=== PATIENT | male | born 1960 | race Caucasian/White ===

== ENCOUNTER → 2023-03-20 11:15 | Outpatient (CLI) | payer OTHER, SELFPAY ==
--- NOTE | ~2023-03-20 | XR_ITS ---
AP and lateral views of the right hip Clinical history: Pain Findings: No acute fracture or dislocation is seen. Osseous alignment is anatomic. The right hip join t and right SI joint are preserved. Soft tissues are unremarkable. Impression: No significant abnormality is seen. Reviewed, dictated and finalized at location . Impression: No significant abnormality is seen.
== END ==
PROVIDERS: PCP Family Medicine Adolescent Medicine; Visit Provider Family Medicine Adolescent Medicine
DX: M25.551 Pain in right hip (principal)
CPT/HCPCS: 73502

== ENCOUNTER 2023-04-20 03:29 | Emergency (ER) | payer OTHER, SELFPAY ==
[2023-04-20 03:49] VITALS: BP 131/84; PULSE 92; RESP 16; TEMP 36.7; O2SAT 95
--- NOTE | 2023-04-20 05:45 | ED.GENADULT ---
HPI - General Adult General Chief complaint: Skin/Abscess/Foreign Body Stated complaint: rash Time Seen by Provider: 04/20/23 05:04 History of Present Illness HPI narrative: This is a 62-year-old male with history of brain cancer on chemo presenting with an itchy rash. At 10:00 p.m. he also had the onset of an urticarial rash on his arms torso and legs. No other symptoms of allergy like wheezing, dizziness/ lightheadedness, throat swelling or GI symptoms. Patient has had reactions like this in the past when on chemotherapy. Related Data Home Medications Medication Instructions Recorded Confirmed lamotrigine 150 mg tablet 300 mg PO BID 06/02/22 03/04/23 brivaracetam 25 mg tablet 25 mg PO BID 06/05/22 03/04/23 (Briviact) ondansetron HCl 8 mg tablet 8 mg PO Q8H PRN nausea and vomiting 02/19/23 03/04/23 prochlorperazine maleate 10 mg 10 mg PO Q6H PRN nausea and 02/19/23 03/04/23 tablet vomiting temozolomide 100 mg capsule 300 mg PO DAILY 02/24/23 03/04/23 Allergies Allergy/AdvReac Type Severity Reaction Status Date / Time sulfamethoxazole Allergy Unknown Unknown Verified 03/04/23 09:38 trimethoprim Allergy Unknown Unknown Verified 03/04/23 09:38 amlodipine AdvReac Intermediate Other Verified 03/04/23 09:38 [facility] Past Medical History Medical History Malignant neoplasm of brain, unspecified (2001) Astrocytoma Surgical History Surgical History H/O left inguinal hernia repair (2013) History of craniotomy (2001) Excision of astrocytoma History of craniotomy (2018) Removal of glioma Family History Family History Father Hypertension Malignant neoplasm of prostate Diabetes mellitus Other Cerebrovascular accident Family history of cardiovascular disease Social History Social History Smoking status: Never smoker Second hand tobacco smoke exposure: No Alcohol intake: never Substance use: never Substance use type: does not use Living arrangements: with family Occupation/Education: other Additional occupation/education comments: Disability Gender identity (if verbalized by the patient): Male Spiritual care concerns: No Agree to blood products: Yes Exam Narrative: APPEARANCE: No apparent distress. Head: atraumatic. EYES: EOMI, NOSE: Atraumatic NECK: Trachea midline RESPIRATORY: No increased rate of breathing, clear to auscultation CARDIOVASCULAR: RRR, peripheral edema ABDOMINAL: Non-distended MUSCULOSKELETAl: No obvious deformities NEURO: Alert. Moving 4/4 extremities SKIN:: patient has a patchy urticarial rash over his right leg abdomen and right arm PSYCHIATRIC: Normal affect Course Vital Signs Vital signs: Vital Signs Temperature 98.1 F 04/20/23 03:49 Pulse Rate 92 04/20/23 03:49 Respiratory Rate 16 04/20/23 03:49 Blood Pressure 131/84 04/20/23 03:49 Pulse Oximetry 95 04/20/23 03:49 Oxygen Delivery Room Air 04/20/23 03:49 Temperature 98.1 F 04/20/23 03:49 Pulse Rate 92 04/20/23 03:49 Respiratory Rate 16 04/20/23 03:49 Blood Pressure 131/84 04/20/23 03:49 Pulse Oximetry 95 04/20/23 03:49 Oxygen Delivery Room Air 04/20/23 03:49 Medical Decision Making MDM Narrative Medical decision making narrative: -Presentation: 62-year-old male with brain tumor on chemo presenting with an urticarial rash. No other signs of anaphylaxis. He has had reactions like this before to his chemotherapy. -DDX includes but is not limited to: Idiopathic urticaria, allergic reaction, medication side effect -Co-morbidities complicating care: medication side effect -Social determinants of health: patient is stable to the brain cancer -External Chart Review: review of oncology office visit from April 08, 2023 -H
[2023-04-20] MEDS: diphenhydrAMINE HCl CAP 25 MG CAPSULE 50 MG PO (05:50)
== END 2023-04-20 06:01 | disposition home or self-care (01) ==
PROVIDERS: Emergency Provider Emergency Medicine; PCP Family Medicine Adolescent Medicine
DX: L50.9 Urticaria, unspecified (principal); C71.9 Malignant neoplasm of brain, unspecified
CPT/HCPCS: 96372; 99283; A9270; J1100

== ENCOUNTER 2023-06-22 17:31 | Emergency (ER) | payer OTHER, SELFPAY ==
--- NOTE | ~2023-06-22 | CT_ITS ---
CT of the Abdomen and Pelvis: Indication: Abdominal pain, status post fall Technique: 2.5 mm axial scans were obtained through the abdomen and pelvis following intravenous adm inistration of 100 cc of Omnipaque 350. Dose reduction technique was used on this scan by utilizing a utomated exposure control and iterative reconstruction technique. The dose-length product (DLP) was 9 80.18 mGy-cm. Findings: Scans through the lung bases are unremarkable. Fractures of the right fourth and fifth rib s noted. Hepatic cyst present. The spleen, pancreas, gallbladder, and adrenal glands are within normal limits. Probable left renal cysts noted, largest at the lower pole measuring 1.9 cm. Small bilateral nonobst ructing renal stones are noted. No evidence of aortic aneurysm. No lymphadenopathy. No bowel obstruction or bowel wall thickening. There is no evidence to suggest acute appendicitis. Images through the pelvis were performed. Urinary bladder unremarkable. Prostate gland and seminal ve sicles are unremarkable. No ascites. Impression: Fractures of right fourth and fifth ribs. No other acute abnormality seen. Bilateral nephrolithiasis. Reviewed, dictated and finalized at [facility]. Impression: Fractures of right fourth and fifth ribs. No other acute abnormality seen. Bilateral nephrolithiasis.
--- NOTE | ~2023-06-22 | XR_ITS ---
AP and oblique views of the bilateral ribs, and PA and lateral chest radiograph Clinical History: Pain Findings: There is a minimally displaced fracture at the posterior right fifth rib. Lungs are clear, without focal consolidation or pleural effusion. Cardiomediastinal contour is within normal limits. S oft tissues are unremarkable. Impression: Minimally displaced fracture at the posterior right fifth rib. Clear lungs. Reviewed, dictated and finalized at location . Impression: Minimally displaced fracture at the posterior right fifth rib. Clear lungs.
--- NOTE | ~2023-06-22 | CT_ITS ---
Noncontrast CT scan of the thoracic spine Technique: Multiple contiguous axial 2.[address] images of the thoracic spine were obtained and r econstructed in 2D sagittal and coronal planes on the acquisition scanner. Dose reduction technique w as used on this scan by utilizing automated exposure control, adjustment of the mA and/or kV accordin g to patient size. The dose-length product (DLP) was 1454.83 mGy-cm. Clinical History: Pain Findings: No fractures or dislocations. Unremarkable visualized bony structures. The intervertebral disc spaces are preserved. Paravertebral soft tissues are unremarkable. Small bilateral nonobstructing renal stones are present. There is a 1.9 cm left lower pole renal mass versus hyperdense cyst. Impression: No fracture or subluxation of the thoracic spine. 1.9 cm left lower pole renal mass versus hyperdense cyst. Bilateral nephrolithiasis. Reviewed, dictated and finalized at [facility]. Impression: No fracture or subluxation of the thoracic spine. 1.9 cm left lower pole renal mass versus hyperdense cyst. Bilateral nephrolithiasis.
--- NOTE | ~2023-06-22 | CT_ITS ---
CT Scan of the Chest without Contrast: Clinical Indication: Rib fracture, pneumothorax Technique: Contiguous sections were acquired throughout the chest without intravenous contrast. Dose reduction technique was used on this scan by utilizing automated exposure control and iterative recon struction technique. The dose-length product (DLP) was 281.45 mGy-cm. Findings: There is no evidence of any significant mediastinal, hilar or axillary lymphadenopathy. The mediastin al soft tissues appear normal. There is a minimally displaced fracture at the anterolateral right fourth rib. There are segmental fr actures of the right fifth rib, fractures posteriorly and laterally.. There is no evidence of pleural or pericardial effusion. The lungs are clear. No pulmonary nodules or infiltrates are noted. Images through the upper abdomen reveal hepatic cyst. Impression: Fractures of the right fourth and fifth ribs, as detailed above. No pneumothorax. Clear lungs. Reviewed, dictated and finalized at [facility]. Impression: Fractures of the right fourth and fifth ribs, as detailed above. No pneumothorax. Clear lungs.
--- NOTE | ~2023-06-22 | CT_ITS ---
Non-contrast Head CT History: Head injury, brain tumor Technique: Axial non-contrast imaging of the brain was performed. Dose reduction technique was used on this scan by utilizing automated exposure control and iterative reconstruction technique. The dose -length product (DLP) was 756.67 mGy-cm. Findings: There is left frontal craniotomy with areas of probable postsurgical insufflation the left frontal lobe, as well as possible irregular partially cystic or necrotic mass, which could measure up to approximately 4.2 cm in diameter. There is ex vacuo dilatation of the left lateral ventricle. The re is minimal hyperdensity in the operative region, which could reflect minimal hemorrhage or postope rative change. No midline shift. Right cerebral hemisphere and cerebellum are unremarkable. The visua lized paranasal sinuses and mastoid air cells are clear. Impression: Postoperative encephalomalacia and possible underlying partially cystic or necrotic mass involving th e left frontal lobe. Correlate with history. Comparison with prior exams would be useful to assess fo r any interval change. Pre and postcontrast MR could be considered to better distinguish between post operative change and residual/recurrent mass. Minimal areas of hyperdensity in the operative region could reflect minimal hemorrhage versus other p ostoperative change or mass. No midline shift. Reviewed, dictated and finalized at location [facility]. Impression: Postoperative encephalomalacia and possible underlying partially cystic or necr otic mass involving the left frontal lobe. Correlate with history. Comparison w ith prior exams would be useful to assess for any interval change. Pre and post contrast MR could be considered to better distinguish between postoperative taz nge and residual/recurrent mass. Minimal areas of hyperdensity in the operative region could reflect minimal hem orrhage versus other postoperative change or mass. No midline shift.
--- NOTE | ~2023-06-22 | CT_ITS ---
Noncontrast CT scan of the cervical spine Technique: Multiple contiguous axial [address] images of the cervical spine were obtained and rec onstructed in 2D sagittal and coronal planes on the acquisition scanner. Dose reduction technique was used on this scan by utilizing automated exposure control, adjustment of the mA and/or kV according to patient size. The dose-length product (DLP) was 470.59 mGy-cm. Clinical History: Pain Findings: No fractures or dislocations. Unremarkable visualized bony structures. The intervertebral disc spaces are preserved. No prevertebral soft tissue swelling. Impression: No fracture or subluxation of the cervical spine. Reviewed, dictated and finalized at location . Impression: No fracture or subluxation of the cervical spine.
[2023-06-22 18:02] VITALS: BP 136/91; PULSE 69; RESP 16; TEMP 36.6; O2SAT 97
[2023-06-22 22:06] VITALS: BP 162/106; PULSE 64; RESP 14; O2SAT 98
--- NOTE | 2023-06-22 22:54 | ECG_ITS ---
Measurements Intervals [place] Rate: 66 P: 66 VA: 174 QRS: 13 QRSD: 93 T: 38 QT: 358 QTc: 377 Interpretive Statements SINUS RHYTHM NONSPECIFIC T-WAVE ABNORMALITY ABNORMAL ECG NO PREVIOUS ECG AVAILABLE FOR COMPARISON Electronically Signed On 06-23-2023 12:02:50 CDT by Robbie Parra M.D.
[2023-06-22 23:03] VITALS: PULSE 73; RESP 17; O2SAT 98
[2023-06-22 23:09] LABS: Basophils Absolute Auto 0.1 K/mm3 (0.0-0.1); Basophils Percent Auto 0.7 % (0.2-1.2); Eosinophils Percent Auto 0.2 % (0-4.4); Hematocrit 47.4 % (42.0-52.0); Hemoglobin 16.1 g/dL (14.0-18.0); Immature Granulocyte Absolute 0.07 K/mm3 (0.00-0.031); Immature Granulocyte Percent A 0.7 % (0-0.5); Lymphocytes Absolute Auto 1.13 K/mm3 (0.9-3.2); Lymphocytes Percent Auto 11.1 % (18.3-44.2); Mean Corpuscular Hemoglobin 31.4 pg (26-34); Mean Corpuscular Volume 92.4 fl (80-100); Mean Platelet Volume 10.4 fl (7.4-10.4); Monocytes Absolute Auto 0.8 K/mm3 (0.1-0.6); Monocytes Percent Auto 7.5 % (2.6-8.5); Neutrophils Absolute Auto 8.1 K/mm3 (1.3-6.7); Neutrophils Percent Auto 79.8 % (45.5-73.1); Platelet Count Result 159 k/mm3 (150-375); Red Blood Count 5.13 M/mm3 (4.6-6.20); Red Cell Distribution Width 13.2 % (11.5-14.5); White Blood Count 10.2 K/mm3 (4.5-10.0)
[2023-06-22 23:15] VITALS: PULSE 68; RESP 16; O2SAT 98
--- NOTE | 2023-06-22 23:17 | ED.FALL ---
HPI - Fall General Chief Complaint: Fall Stated Complaint: fall, back pain Time Seen by Provider: 06/22/23 22:29 Source: patient, family and old records reviewed Mode of arrival: ambulatory Limitations: no limitations History of Present Illness HPI Narrative: Patient is a 62-year-old male who presents to ED with report of a fall and back pain. Patient is currently undergoing chemotherapy for a brain tumor. He has chronic aphasia r/t this. His oncologist is Dr. Ayden Martinez with [facility]. Per family member at bedside, patient was found on the ground by another family member that was attempting to pick him up for dinner tonight. He had fallen in his living room and was unable to get up off the ground. He thinks he was on the ground for around 1 hour. Patient is unable to tell me how the fall occurred. He denied feeling dizzy or lightheaded prior to the fall. He complains of upper back pain and right side/abdomen pain currently. He stated the pain may have been present before the fall. He does not think he hit his head. Denies LOC. Denies nausea or vomiting. Denies chest pain or difficulty breathing. Related Data Home Medications Medication Instructions Recorded Confirmed lamotrigine 150 mg tablet 300 mg PO BID 06/02/22 04/23/23 brivaracetam 25 mg tablet 25 mg PO BID 06/05/22 04/23/23 (Briviact) ondansetron HCl 8 mg tablet 8 mg PO Q8H PRN nausea and vomiting 02/19/23 04/23/23 prochlorperazine maleate 10 mg 10 mg PO Q6H PRN nausea and 02/19/23 04/23/23 tablet vomiting temozolomide 100 mg capsule 300 mg PO DAILY 02/24/23 04/23/23 Allergies Allergy/AdvReac Type Severity Reaction Status Date / Time sulfamethoxazole Allergy Unknown Unknown Verified 06/22/23 22:08 trimethoprim Allergy Unknown Unknown Verified 06/22/23 22:08 amlodipine AdvReac Intermediate Other Verified 06/22/23 22:08 Review of Systems Review of Systems: CONSTITUTIONAL: Denies fever, chills, or sweats. EYES: Denies visual changes. CARDIOVASCULAR: Denies chest pain. RESPIRATORY: Denies dyspnea. GASTROINTESTINAL: Denies abdominal pain, nausea, vomiting. MUSCULOSKELETAL: See HPI. NEUROLOGIC: See HPI. All systems reviewed & are unremarkable except as noted in HPI and below PMFSH Past Medical History Medical History Malignant neoplasm of brain, unspecified (2001) Astrocytoma Surgical History Surgical History H/O left inguinal hernia repair (2013) History of craniotomy (2001) Excision of astrocytoma History of craniotomy (2017) Removal of glioma Family History Family History Father Hypertension Malignant neoplasm of prostate Diabetes mellitus Other Cerebrovascular accident Family history of cardiovascular disease Social History Social History Smoking status: Never smoker Second hand tobacco smoke exposure: No Alcohol intake: never Substance use: never Substance use type: does not use Lack of Transportation: No Lack of Food: Never True Current Housing: I Have Housing Concerned About Future Housing: No Difficulty Paying Gas/Electric Bills: No Difficulty Paying for Meds: No Currently Unemployed: No Education: Trade/Vocational Certificate Difficulty w/ Childcare or Family Care: No Living arrangements: with family Occupation/Education: other Additional occupation/education comments: Disability Gender identity (if verbalized by the patient): Male Spiritual care concerns: No Agree to blood products: Yes Exam Narrative: GENERAL: Well appearing, well-nourished, non-toxic, in mild acute distress due to pain. HEAD: Normocephalic, atraumatic. EYES: PERRLA/EOMI, conjunctiva clear. NECK: Supple. No adenopathy, no masses. RESPIRATORY: Airway patent,
[2023-06-22 23:18] LABS: Alanine Aminotransferase 50 U/L (6-50); Albumin Level 4.5 g/dL (3.5-5.1); Alkaline Phosphatase 79 U/L (38-126); Anion Gap 6 mmol/L (8-16); Aspartate Amino Transferase 33 U/L (17-59); Bilirubin,Total 0.6 mg/dL (0.2-1.3); Blood Urea Nitrogen 18 mg/dL (9-20); Calcium 10.2 mg/dL (8.4-10.2); Carbon Dioxide 32 mmol/L (22-30); Chloride 102 mmol/L (98-107); Creatine Kinase 88 U/L (55-170); Estimated CRCL calculation 38 ml/min; Estimated Glomerular Filt Rate 41; Glucose 112 mg/dL (65-110); Magnesium 2.1 mg/dL (1.6-2.3); Potassium 4.5 mmol/L (3.4-5.0); Sodium 140 mmol/L (137-145)
[2023-06-22 23:29] LABS: Troponin I < 0.012 ng/mL (0.000-0.034)
[2023-06-22 23:38] VITALS: PULSE 72; RESP 20; O2SAT 98
[2023-06-22] MEDS: SODIUM CHLORIDE 0.9% IV 1,000 ML 999 ML IV CONT (23:42)
[2023-06-22] MEDS: ONDANSETRON INJ 4 MG/2 ML VIAL IV PUSH (23:42)
[2023-06-22] MEDS: MORPHINE SULFATE (*CRX) 4 MG/ML INJ IV PUSH (23:42)
[2023-06-22 23:46] VITALS: PULSE 71; RESP 13; O2SAT 98
[2023-06-23] VITALS (33 sets, daily range): BP systolic 128–149; BP diastolic 90–99; PULSE 55–83; RESP 10–19; O2SAT 95–99
[2023-06-23 02:11] LABS: Appearance Urine Clear (Clear); Bilirubin Urine Negative (Negative); Blood Urine Negative (Negative); Color Urine Yellow (Yellow); Glucose Urine UA Negative (Negative); Ketones Urine Negative (Negative); Leukocyte Esterase Ur Negative LEU/UL (Negative); Nitrate Urine Negative (Negative); Protein Urine Negative (Negative); pH Urine 5.5 (5.0-9.0)
[2023-06-23 02:20] LABS: Add Urine Microscopic? NO; Specific Grav Ur 1.039 (1.001-1.035)
--- NOTE | 2023-06-23 07:30 | PC.NURSE ---
New ETA for [facility] is 0830 or sooner.
[2023-06-23] MEDS: MORPHINE SULFATE (*CRX) 4 MG/ML INJ IV PUSH (07:52)
--- NOTE | 2023-06-23 08:25 | PC.NURSE ---
ETA from [facility] is 0900
== END 2023-06-23 09:10 | disposition short-term general hospital (02) ==
PROVIDERS: Emergency Provider Physician Assistant; PCP Family Medicine Adolescent Medicine
DX: S22.5XXA Flail chest, initial encounter for closed fracture (principal); C71.9 Malignant neoplasm of brain, unspecified; N17.9 Acute kidney failure, unspecified; N28.9 Disorder of kidney and ureter, unspecified; R94.31 Abnormal electrocardiogram [ECG] [EKG]; W19.XXXA Unspecified fall, initial encounter
CPT/HCPCS: 36415; 70450; 71046; 71110; 71250; 72125; 72128; 74177; 80053; 81003; 82550; 83735; 84484; 85025; 93005; 96361; 96374; 96375; 96376; 99285; J2270; J2405; J7030; Q9967

== ENCOUNTER 2024-10-10 09:27 | Outpatient (CLI) | payer OTHER, SELFPAY ==
--- NOTE | ~2024-10-10 | US_ITS ---
Abdominal Sonogram: Real-time sonographic imaging of the abdomen was performed. Clinical History: Other specified disorders kidneys and ureter Findings: The liver appears normal with no evidence of mass lesion or bile duct dilatation. Main por rhys vein demonstrates normal direction of flow. The spleen is normal in size without evidence of foca l lesion. The gallbladder is well distended, and appears normal with no evidence of gallstone or wal l thickening. The common bile duct measures 4 mm. The visualized pancreas, aorta, and IVC are unrema rkable. The right kidney measures 9.7 cm in length and the left kidney measures 10.5 cm. There is n o hydronephrosis or renal calculus. Small bilateral renal cysts present. Impression: Small bilateral renal cysts, otherwise unremarkable exam. Reviewed, dictated and finalized at location . [facility] SPECIAL[facility] Impression: Small bilateral renal cysts, otherwise unremarkable exam.
== END 2024-10-10 09:28 | disposition home or self-care (01) ==
PROVIDERS: PCP Family Medicine Adolescent Medicine; Visit Provider Family Medicine Adolescent Medicine
DX: N28.1 Cyst of kidney, acquired (principal)
CPT/HCPCS: 76700

== ENCOUNTER 2024-12-05 12:20 | Emergency (ER) | payer OTHER, SELFPAY ==
[2024-12-05] VITALS (32 sets, daily range): BP systolic 123–156; BP diastolic 78–97; PULSE 64–88; RESP 13–20; TEMP 37.5–37.7; O2SAT 90–95
--- NOTE | ~2024-12-05 | CT_ITS ---
Clinical indication:Clinically concerned for pneumonia. COMPARISON:Chest radiograph, performed 4 hours earlier (with benign results). Reference is also made to a CT examination of the abdomen and pelvis dated 06/23/2023. TECHNIQUE: Multiple contiguous axial images of the chest were performed following the administration of intravenous contrast. DLP: 265 mGy-cm FINDINGS: LUNG:The lungs are clear. MEDIASTINUM:No morphologically suspicious or pathologically enlarged lymph nodes identified within th e mediastinum, hilum or bilateral axilla. HEART:The heart is of normal size, without pericardial effusion. SOFT TISSUES OF THE CHEST: Unremarkable BONES OF THE CHEST: No acute compression fracture. No lytic or blastic lesions are identified. VISUALIZED PORTION OF THE UPPER ABDOMEN: A well-circumscribed focus of decreased attenuation is ident ified within segment 8 of the liver measuring 4 cm in greatest dimension, unchanged from 2022 examina tion, representing a cyst. Small hiatal hernia is noted. IMPRESSION: No cross-sectional imaging evidence to suggest the presence of pneumonia. The lungs are clear. Reviewed, dictated and finalized at location A. SETTING SUPERVISOR
--- NOTE | ~2024-12-05 | XR_ITS ---
EXAMINATION: XR chest 2V DATE: 12/05/2024 15:19 INDICATION: Altered mental status. Fall. TECHNIQUE: Frontal and lateral views of the chest were obtained. COMPARISON: Chest 2 views 06/22/2023 FINDINGS: There is no pneumonia, pleural effusion, or pneumothorax. The heart size is normal. There a re old healed right rib fractures. IMPRESSION: 1. No acute cardiopulmonary disease. Reviewed, dictated and finalized at location A. EATION SPECIALIST
--- NOTE | ~2024-12-05 | CT_ITS ---
Clinical Indication: Elevated d-dimer CT Scan of the Chest with Contrast: Technique: Contiguous sections were acquired throughout the chest after intravenous administration of 100 cc of Omnipaque 350. Dose reduction technique was used on this scan by utilizing automated expos ure control and iterative reconstruction technique. The dose-length product (DLP) was 388.73 mGy-cm. COMPARISON: 12/05/2024 Findings: There is no evidence of any significant mediastinal, hilar or axillary lymphadenopathy. There is no f illing defect in the pulmonary arterial tree to suggest pulmonary embolus. There is no evidence of ao rtic dissection or aneurysm. There is no no pleural effusion. Minimal pericardial fluid present effusion. The lungs are clear. No pulmonary nodules or infiltrates are noted. Images through the upper abdomen demonstrates stable 2 cm solid-appearing mass at the upper pole the left kidney. Impression: 2 cm solid-appearing left upper pole renal mass, stable from most recent prior exam, but increased in size from prior exam dated 06/23/2023. Renal cell carcinoma is suspected. Additional appropriate work up and surgical consultation is advised. No evidence of pulmonary embolus, aortic dissection, or aortic aneurysm. Clear lungs. Minimal pericardial fluid. Reviewed, dictated and finalized at location . OPERATOR Impression: 2 cm solid-appearing left upper pole renal mass, stable from most recent prior exam, but increased in size from prior exam dated 06/23/2023. Renal cell carcino ma is suspected. Additional appropriate workup and surgical consultation is advised. No evidence of pulmonary embolus, aortic dissection, or aortic aneurysm. Clear lungs. Minimal pericardial fluid.
--- NOTE | ~2024-12-05 | CT_ITS ---
EXAMINATION: CT brain wo con DATE: 12/05/2024 15:10 INDICATION: Weakness post fall TECHNIQUE: Computed tomography (CT) of the head was performed without intravenous contrast. Sagittal and coronal reconstructions were performed. The mA was adjusted according to patient size. Iterative reconstruction technique was employed. The dose-length product was 605.33 mGy-cm. COMPARISON: head CT dated 06/23/2023 FINDINGS: No acute fracture. There is encephalomalacia in the left frontal lobe and anterior left temporal lobe underlying a chronic left frontal craniotomy. No acute intracranial hemorrhage, acute infarction or abnormal extra axial fluid collection. There is ex vacuo dilation of the anterior and temporal horns of the left lateral ventricle. Symmetric prominence of the sulci consistent with mild age-appropriate diffuse cerebral volume loss. No solid masses or mass effect. There is mucosal thickening the bilate ral ethmoid sinuses. The orbits and mastoid air cells are normal. IMPRESSION: 1. No fracture or acute intracranial process. 2. Encephalomalacia in the left frontal lobe and anterior left temporal lobe which could represent se quela prior infarct, trauma or surgery and which underlies a left frontal craniotomy defect. Correlat e with clinical/surgical history. Reviewed, dictated and finalized at location A. L INSPECTOR IMPRESSION: 1. No fracture or acute intracranial process. 2. Encephalomalacia in the left frontal lobe and anterior left temporal lobe wh ich could represent sequela prior infarct, trauma or surgery and which underlie s a left frontal craniotomy defect. Correlate with clinical/surgical history.
--- NOTE | ~2024-12-05 | CT_ITS ---
EXAMINATION: CT cervical spine wo con DATE: 12/05/2024 15:10 INDICATION: Neck injury. Fall. TECHNIQUE: Computed tomography (CT) of the cervical spine was performed without intravenous contrast. Automated exposure control and iterative reconstruction technique were employed. The dose-length pro duct was 329.58 mGy-cm. COMPARISON: CT cervical spine 06/23/2023 FINDINGS: There is a 4 mm nodule in left thyroid lobe, likely not clinically significant. Alignment i s normal. Vertebral body heights are normal. There is mildly decreased disc height at C4-C5. The foll owing disc levels are specifically discussed: C2-C3: There is mild bilateral uncovertebral joint osteoarthritis. There is mild bilateral facet join t osteoarthritis. There is no neural foraminal stenosis. There is no central canal stenosis. C3-C4: There is severe right and moderate left uncovertebral joint osteoarthritis. There is mild bila teral facet joint osteoarthritis. There is moderate bilateral neural foraminal stenosis. There is mil d central canal stenosis. C4-C5: There is mild bilateral uncovertebral joint osteoarthritis. There is mild bilateral facet join t osteoarthritis. There is mild left neural foraminal stenosis. There is mild central canal stenosis. C5-C6: There is mild bilateral uncovertebral joint osteoarthritis. There is mild right facet joint os teoarthritis. There is mild bilateral neural foraminal stenosis. There is mild central canal stenosis . C6-C7: There is moderate left uncovertebral joint osteoarthritis. There is mild bilateral facet joint osteoarthritis. There is mild left neural foraminal stenosis. There is mild central canal stenosis. C7-T1: There is no uncovertebral joint osteoarthritis. There is moderate right and mild left facet kimberley int osteoarthritis. There is no neural foraminal stenosis. There is no central canal stenosis. IMPRESSION: 1. No fracture. 2. Moderate spondylosis at C3-C4 and mild spondylosis at other levels. Reviewed, dictated and finalized at location A. NFORMATICS ENGINEER
--- OUTSIDE RECORDS SUMMARY | 2024-12-05 12:36 | XMS_ITS ---
Author Organization [facility] Address [address] [place] [address] Care Team Providers Care Manager Functional Name Role Phone Leonides Mcneil MD Primary Care Provider + William Peña MD Unavailable [phone] Greta Aldana APRN-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 Past Plans ONCOLOGY TREATMENT Plan Name Start Date Discontinue Date Treatment Medications Discontinue Reason Plan Provider Cycles X RAY OPERATOR (TEMOZOLAMIDE) CONCOMITANT PARTIAL PROTOCOL TO BE FOLLOWED BY MAINTENANCE TEMOZOLAMIDE 8 10/24/2019 temozolomide (Temodar) Therapy Complete Chinedu Molina MD 1 of 1 cycle started Radiation Treatments * No radiation treatments are documented for this patient in [facility]. Treatments may have been administered in another system. 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
--- OUTSIDE RECORDS SUMMARY | 2024-12-05 12:36 | XMS_ITS | Clinical Summary ---
Author Organization [facility] Address [address] [place] [address] Care Team Providers Care Studio Camera Operator Name Role Phone Leonides Mcneil MD Primary Care Prov ider Kailey Corrales MD Unavailable Ayden Martinez MD PhD Unavailable + Allergies Active Allergy Reactions Criticality Noted Date Comments Amlodipine Rash High 01/03/2018 Prochlorperazine Rash Medium 06/23/2023 Glimepiride Rash Medium 01/04/2018 Sulfamethoxazole-Trimethoprim Rash Medium 2017 Medications escitalopram (LEXAPRO) 20 mg tablet Take 1 tablet (20 mg total) by mouth daily 10/25/20 21 Active lamoTRIgine (LaMICtal) 200 mg tablet Take 1.5 tablets (300 mg total) by mouth 2 (two) times a day 08/30/20 21 Active lisinopriL (PRINIVIL,ZESTR IL) 20 mg tablet Take 1 tablet (20 mg total) by mouth daily 09/11/20 21 Active acetaminophen (TYLENOL) 325 mg tablet Take 2 tablets (650 mg total) by mouth every 4 (four) hours as needed for pain 30 tablet 01/31/20 23 Active cetirizine (ZyrTEC) 10 mg tablet Take 1 tablet (10 mg total) by mouth daily Active clonazePAM (KlonoPIN) 0.5 mg tablet Take 1 tablet (0.5 mg total) by mouth daily as needed for seizures (if 2 seizures in 24 hours or seizures lasting longer than 5 minutes) 30 tablet 07/20/20 23 Active ondansetron (ZOFRAN) 8 mg tabletIndicatio ns:Malignant neoplasm of overlapping sites of brain (HCC) Take 1 tablet (8 mg total) by mouth every 8 (eight) hours as needed for nausea or vomiting Take 30 minutes prior to oral chemotherapy then every 8 hours as needed up to 3 doses in 24 hours if prochlorperazine does not stop nausea. 24 tablet 3 10/28/19 24 Active NOT IN DATABASE, PRESCRIPTION, Drug name: Vorasidenib Dose: 40mg Route: PO Frequency: every day Duration: 30 days 30 each 07/15/20 24 Active Active Problems Problem Noted Date Diagnosed Date Seizures 05/30/2024 Stage 3 chronic kidney disea se, unspecified whether stage 3a or 3b CKD 05/30/2024 Fracture of two ribs of righ t side, closed, initial encounter 06/23/2023 Brain tumor 01/27/2023 Malignant neoplasm of overlapping sites of brain 12/22/2021 Cancer Staging:Pathologic stage from 10/15/2001:WHO Grade II- Signed by Liu Cruz MD PhD on 12/22/2021 Pathologic stage from 11/11/2017:WHO Grade III- Signed by Liu Cruz MD PhD on 12/22/2021 Encounters Date Type Department Care Team Description 11/30/2024 4:00 PM LOCKSTITCH WAISTBAND SETTER Telemedicine [facility] On[facility] Floor 1, [address] [place] [address] Ayden Martinez MD PhD Malignant neoplasm of overlapping sites of brain (HCC) (Primary Dx); Seizures (HCC); Stage 3 chronic kidney disease, unspecified whether stage 3a or 3b CKD (HCC) 11/28/2024 4:11 PM LOCKSTITCH WAISTBAND SETTER - 11/28/2024 11:59 PM LOCKSTITCH WAISTBAND SETTER Hospital Encounter [facility] [address] [place] [address] Malignant neoplasm of overlapping sites of brain (HCC) Discharge Disposition: Discharge to home or self care 11/11/2024 Social Work [facility] Floor 1, [address] [place] [address] Judith Campa, STEAM TRAP WORKER 11/07/2024 Social Work [facility] Oncology [address] [place] [address] Floor 1, [address] [place] [address] Judith Campa STEAM TRAP WORKER 10/29/2024 Orders Only [facility] Scanning, Provider 10/05/2024 9:20 AM LOCKSTITCH WAISTBAND SETTER Office Visit [facility] Floor 1, [address] [place] [address] Ayden Martinez MD PhD Malignant neoplasm of overlapping sites of brain (HCC) (Primary Dx) 10/05/2024 8:45 AM LOCKSTITCH WAISTBAND SETTER Lab [facility] - Lab Collection [address] [place] [address] Floor 5 [place] [address] Malignant neoplasm of overlapping sites of brain (HCC) 10/05/2024 8:30 AM LOCKSTITCH WAISTBAND SETTER Lab [facility] Oncology Lab [address] [place] [address] 5 [place] [address] Malignant neoplasm of overlapping sites of brain (HCC) 09/08/2024 Social Work [facility] Oncology [address] [place] [address] Floor 1, [address] [place] [phone] Judith Campa LCSW 09/08/2024 Orders Only [facility] Oncology [address] [place] [address] 1, [address] [place] [phone] Evelyn Bustillo Malignant neoplasm of overlapping sites of brain (HCC) (Primary Dx) from Last 3 Months Immunizations Name Administration Dates Next Due Influenza, Quadrivalent, Spl it, Preservative Free, Intramuscular 11/12/2017 Surgical History Surgery Date Site/Laterality Comments TONSILLECTOMY HERNIA REPAIR BRAIN SURGERY Medical History Medical History Date Comments Seizure (HCC) Dermatitis Brain cancer (HCC) Family History Medical History Relation Name Comments Cancer Brother Cancer Father Diabetes Father Family history of diabetes mellitus - (Added by TW Conv) Heart disease Father Hypertension Father Family history of hypertension - (Added by TW Conv) No Known Problems Maternal Grandfather No Known Problems Maternal Grandmother No Known Problems Mother No Known Problems Paternal Grandfather No Known Problems Paternal Grandmother Cancer Sister Relation Name Status Comments Brother Father Maternal Grandfather Maternal Grandmother Mother Paternal Grandfather Paternal Grandmother Sister Social History Tobacco Use Types Packs/Day Years Used Date Smoking Tobacco: Never Smokeless Tobacco: Never Tobacco Cessation:Counseling Given: Not Answered Personal Safety Answer Date Recorded Have you ever been in or are you currently in a harmful physical or emotional relationship or is someone making you feel afraid or unsafe? Denies 06/23/2023 Sex and Gender Information Value Date Recorded Sex Assigned at Not on file Legal Sex Male 9:31 AM LOCKSTITCH WAISTBAND SETTER Gender Identity Not on file Sexual Orientation Straight 12/19/2021 11 :33 AM LOCKSTITCH WAISTBAND SETTER Obstetrics History Last Filed Vital Signs Vital Sign Reading Time Taken Comments Blood Pressure 151/86 10/05/2024 8:38 AM LOCKSTITCH WAISTBAND SETTER Pulse 73 10/05/2024 8:38 AM LOCKSTITCH WAISTBAND SETTER Temperature 36.9 C (98.4 F) 10/05/2024 8:38 AM LOCKSTITCH WAISTBAND SETTER Respiratory Rate 17 10/05/2024 8:38 AM LOCKSTITCH WAISTBAND SETTER Oxygen Saturation 95% 10/05/2024 8:38 AM LOCKSTITCH WAISTBAND SETTER Inhaled Oxygen Concentration - - Weight 81.6 kg (180 lb) 11/28/2024 4:20 PM LOCKSTITCH WAISTBAND SETTER Height 172.7 cm (5' 8 ) 11/28/2024 4:20 PM LOCKSTITCH WAISTBAND SETTER Body Mass Index 27.37 11/28/2024 4:20 PM LOCKSTITCH WAISTBAND SETTER Plan of Treatment Health Maintenance Due Date Last Done Comments Colon Cancer Screening-Colonoscopy 1960 Depression Screening 1960 Hepatitis C Screening 1960 Prostate Cancer Screening-PSA 1960 DTaP/Tdap/Td Vaccine (1 - Tdap) 1971 Hepatitis B Screening 1978 Regular Well Visit/Exam 18-64 1978 Zoster Vaccine (1 of 2) 2010 Influenza Vaccine (#1) 2024 11/12/2017 Pneumococcal vaccine <65 Aged Out No longer eligible based on patient's age to complete this topic Procedures Procedure Name Priority Date/Time Associated Diagnosis Comments MRI BRAIN W WO CONTRAST Schedule LENNOX, Read LENNOX (Appt Today, Awaiting Results) 11/28/2024 5:13 PM LOCKSTITCH WAISTBAND SETTER Malignant neoplasm of overlapping sites of brain (HCC) GAMMA GT Routine 10/29/2024 8:42 AM LOCKSTITCH WAISTBAND SETTER Malignant neoplasm of overlapping sites of brain (HCC) CBC WITH AUTO DIFFERENTIAL Routine 10/29/2024 8:42 AM LOCKSTITCH WAISTBAND SETTER Malignant neoplasm of overlapping sites of brain (HCC) COMPREHENSIVE METABOLIC PANEL STAT 10/29/2024 8:42 AM LOCKSTITCH WAISTBAND SETTER Malignant neoplasm of overlapping sites of brain (HCC) SCAN - LABS 10/29/2024 EGFR STAT 10/05/2024 8:33 AM LOCKSTITCH WAISTBAND SETTER Malignant neoplasm of overlapping sites of brain (HCC) DIFFERENTIAL AUTO Routine 10/05/2024 8:3 3 AM LOCKSTITCH WAISTBAND SETTER Malignant neoplasm of overlapping sites of brain (HCC) COMPREHENSIVE METABOLIC PANEL STAT 10/05/2024 8:33 AM LOCKSTITCH WAISTBAND SETTER Malignant neoplasm of overlapping sites of brain (HCC) CBC WITH AUTO DIFFERENTIAL Routine 10/05/2024 8:33 AM LOCKSTITCH WAISTBAND SETTER Malignant neoplasm of overlapping sites of brain (HCC) GAMMA GT Routine 10/05/2024 8:33 AM LOCKSTITCH WAISTBAND SETTER Malignant neoplasm of overlapping sites of brain (HCC) from Last 3 Months Results * MRI Brain W WO Contrast (11/28/2024 5:13 PM LOCKSTITCH WAISTBAND SETTER) Anatomical Region Laterality Modality Head and Neck N/A Magnetic Resonan ce 11/29/2024 9:4 9 AM LOCKSTITCH WAISTBAND SETTER Impressions 11/29/2024 1:06 PM LOCKSTITCH WAISTBAND SETTER Postsurgical changes of left frontotemporal craniotomy for mass resection. Punctate focus of enhancement along the anterior-inferior resection cavity is unchanged from prior. No new foci of enhancement to suggest progressive disease. Dictated by: Nallely Yates D.O. The radiology attending physician has personally reviewed this study, and had reviewed and/or edited this written report and agrees with it. Electronically signed by: Abdon Maldonado M.D. 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 Contrast information: 16 mL Gadoterate Meglumine COMPARISON: MRI brain 08/15/2024 and 05/23/2024 FINDINGS: Postsurgical changes of left frontotemporal craniotomy for tumor resection. A focus of enhancement along the anterior inferior resection cavity is unchanged compared to prior exams. No new foci of enhancement. Encephalomalacia of the left frontal and temporal lobes with similar degree of FLAIR signal abnormality compared to prior exams. More discrete area of left periventricular/ atrium of left lateral ventricle FLAIR hyperintensity appear similar to prior exam. Ex vacuo dilatation of the left lateral ventricle again seen, postsurgical. Susceptibility signal within the resection cavity, postsurgical changes. 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 The superior sagittal sinus demonstrates normal venous flow. The corpus callosum is normal in shape and signal intensity. left parasagittal arachnoid cyst, unchanged. The pituitary and sella are normal. The brainstem and craniocervical junction are unremarkable. Diffusion weighted images reveal no hyperintensities to suggest acute cerebral infarction. The paranasal sinuses are normal. The visualized portions of the mastoids are unremarkable. The orbits appear normal. Normal flow voids are demonstrated in the carotid arteries and basilar artery. 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 Contrast information: 16 mL Gadoterate Meglumine COMPARISON: MRI brain 08/15/2024 and 05/23/2024 FINDINGS: Postsurgical changes of left frontotemporal craniotomy for tumor resection. A focus of enhancement along the anterior inferior resection cavity is unchanged compared to prior exams. No new foci of enhancement. Encephalomalacia of the left frontal and temporal lobes with similar degree of FLAIR signal abnormality compared to prior exams. More discrete area of left periventricular/ atrium of left lateral ventricle FLAIR hyperintensity appear similar to prior exam. Ex vacuo dilatation of the left lateral ventricle again seen, postsurgical. Susceptibility signal within the resection cavity, postsurgical changes. 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 The superior sagittal sinus demonstrates normal venous flow. The corpus callosum is normal in shape and signal intensity. left parasagittal arachnoid cyst, unchanged. The pituitary and sella are normal. The brainstem and craniocervical junction are unremarkable. Diffusion weighted images reveal no hyperintensities to suggest acute cerebral infarction. The paranasal sinuses are normal. The visualized portions of the mastoids are unremarkable. The orbits appear normal. Normal flow voids are demonstrated in the carotid arteries and basilar artery. IMPRESSION: Postsurgical changes of left frontotemporal craniotomy for mass resection. Punctate focus of enhancement along the anterior-inferior resection cavity is unchanged from prior. No new foci of enhancement to suggest progressive disease. Dictated by: Nallely Yates D.O. The radiology attending physician has personally reviewed this study, and had reviewed and/or edited this written report and agrees with it. Electronically signed by: Abdon Maldonado M.D. [facility] MD PhD IMG MRI PROCEDURES Final Result * (ABNORMAL) CBC with auto differential (10/29/2024 8:42 AM LOCKSTITCH WAISTBAND SETTER) WBC 5.6 3.8 - 10.8 Thousand/u L [facility] RBC, POC 5.35 4.20 - 5.80 Million/uL [facility] Hgb 15.5 13.2 - 17.1 g/dL [facility] Hct 48.9 38.5 - 50.0 % [facility] MCV 91.4 80.0 - 100.0 fL [facility] MCH 29.0 27.0 - 33.0 pg [facility] MCHC 31.7(L) 32.0 - 36.0 g/dL [facility] Comment: For adults, a slight decrease in the calculated MCHC value (in the range of 30 to 32 g/dL) is most likely not clinically significant; however, it should be interpreted with caution in correlation with other red cell parameters and the patient's clinical condition. Rdw 14.1 11.0 - 15.0 % [facility] Platelets 180 140 - 400 Thousand/u L [facility] MPV 10.8 7.5 - 12.5 fL [facility] Neutrophils, abs 3,198 1,500 - 7,800 cells/uL [facility] Lymphocytes, abs 1,775 850 - 3,900 cells/uL [facility] Monocyte abs 487 200 - 950 cells/uL [facility] Eosinophils, abs 90 15 - 500 cells/uL [facility] Basophils, abs 50 0 - 200 cells/uL [facility] Neutrophils 57.1 % [facility] Lymphocyte pct 31.7 % [facility] Monocytes 8.7 % [facility] Eosinophils 1.6 % [facility] Basophils 0.9 % [facility] Blood 10/29/2024 8:42 AM LOCKSTITCH WAISTBAND SETTER 10/29/2024 10:29 AM LOCKSTITCH WAISTBAND SETTER Ayden Martinez MD PhD LAB BLOOD ORDERABL ES Final Result Performing Organization Address [facility]/ZIP Co de Phone Number [facility] [address] [place] [address] * Gamma GT (10/29/2024 8:42 AM LOCKSTITCH WAISTBAND SETTER) Pathologist [facility] GGT 36 3 - 70 U/L [facility] Blood 10/29/2024 8:42 AM LOCKSTITCH WAISTBAND SETTER 10/29/2024 10:29 AM LOCKSTITCH WAISTBAND SETTER Ayden Martinez MD PhD LAB BLOOD ORDERABL ES Final Result Performing Organization Address [facility]/ZIP Co de Phone Number [facility] [address] [place] [address] * (ABNORMAL) Comprehensive metabolic panel (10/29/2024 8:42 AM LOCKSTITCH WAISTBAND SETTER) Glucose 156(H) 65 - 99 mg/dL [facility] Comment: Fasting reference interval For someone without known diabetes, a glucose value >125 mg/dL indicates that they may have diabetes and this should be confirmed with a follow-up test. BUN 13 7 - 25 mg/dL [facility] Creatinine 1.83(H) 0.70 - 1.35 mg/dL [facility] eGFR 41(L) > OR = 60 mL/min/1.7 3m2 [facility] BUN/creat ratio 7 6 - 22 (calc) [facility] Sodium 137 135 - 146 mmol/L [facility] Potassium, pl 4.0 3.5 - 5.3 mmol/L [facility] Chloride 102 98 - 110 mmol/L [facility] CO2 30 20 - 32 mmol/L [facility] Calcium 9.7 8.6 - 10.3 mg/dL [facility] Protein, sr 6.5 6.1 - 8.1 g/dL [facility] Albumin 4.0 3.6 - 5.1 g/dL [facility] GLOBULIN 2.5 1.9 - 3.7 g/dL (calc) [facility] Alb/glob ratio 1.6 1.0 - 2.5 (calc) [facility] Bilirubin, total 0.3 0.2 - 1.2 mg/dL [facility] Alk phos 81 35 - 144 U/L [facility] AST 17 10 - 35 U/L [facility] ALT (SGPT) 32 9 - 46 U/L [facility] Blood 10/29/2024 8:42 AM LOCKSTITCH WAISTBAND SETTER 10/29/2024 10:29 AM LOCKSTITCH WAISTBAND SETTER Ayden Martinez MD PhD LAB BLOOD ORDERABL ES Final Result [facility] [address] [place] [address] * SCAN - LABS (10/29/2024) Provider Scanning Final Result * (ABNORMAL) eGFR (10/05/2024 8:33 AM LOCKSTITCH WAISTBAND SETTER) eGFR 45(L) >=60 mL/min/1. 73 m2 Comment: Interpretive Data Reference Interval Normal >/= 90 mL/min/1.73m2 Mildly decreased* 60 - 89 mL/min/1.73m2 Mildly to moderately decreased 45 - 59 mL/min/1.73m2 Moderately to severely decreased 30 - 44 mL/min/1.73m2 Severely decreased 15 - 29 mL/min/1.73m2 Kidney Failure < 15 mL/min/1.73m2 *Relative to young adult level Estimated glomerular filtration rate is determined by the 2020 CKD-EPI equation recommended by the National Kidney Foundation (A Unifying Approach to GFR Estimation: Recommendations of the NKF-ASK Task Force on Reassessing the Inclusion of Race in Diagnosing Kidney Disease, JASN 2020). The CKD-EPI equation should not be used for patients with unstable renal function and has not been validated in children and those over 70. Current interpretive data was last reviewed 2021. Blood 10/05/2024 8:33 AM LOCKSTITCH WAISTBAND SETTER 10/05/2024 8:36 AM LOCKSTITCH WAISTBAND SETTER Ayden Martinez MD PhD LAB BLOOD ORDERABL ES Final Result [facility] Department [place] [address] * Differential, auto (10/05/2024 8:33 AM LOCKSTITCH WAISTBAND SETTER) Neutrophil abs 3.1 1.5 - 6.5 K/cumm Comment:Testing performed by : [facility], [address] [place] [phone] Lymphocyte abs 1.4 0.8 - 3.3 K/cumm [facility] Comment:Testing performed by : [facility], [address] [place] [phone] Monocyte abs 0.4 0.2 - 0.8 K/cumm [facility] Comment:Testing performed by : [facility], [address] [place] [phone] Eosinophil abs 0.1 0.0 - 0.5 K/cumm [facility] Comment:Testing performed by : [facility], [address] [place] [phone] Basophil abs 0.1 0.0 - 0.1 K/cumm [facility] Comment:Testing performed by : [facility], [address] [place] [phone] Neutrophil pct 60.9 % [facility] Comment: Interpretive Data Percent cell count reference ranges are not reported, since discordance with absolute values may lead to misinterpretation of CBC data. Current Interpretive Data was last revised on 2018. Testing performed by: [facility], [address] [place] [phone] Lymphocyte pct 27.6 % [facility] Comment: Interpretive Data Percent cell count reference ranges are not reported, since discordance with absolute values may lead to misinterpretation of CBC data. Current Interpretive Data was last revised on 2018. Testing performed by: [facility], [address] [place] [address] Monocyte pct 8.0 % [facility] Comment: Interpretive Data Percent cell count reference ranges are not reported, since discordance with absolute values may lead to misinterpretation of CBC data. Current Interpretive Data was last revised on 2018. Testing performed by: [facility], [address] [place] [phone] Eosinophil pct 2.0 % [facility] Comment: Interpretive Data Percent cell count reference ranges are not reported, since discordance with absolute values may lead to misinterpretation of CBC data. Current Interpretive Data was last revised on 2018. Testing performed by: [facility], [address] [place] [phone] Basophil pct 1.5 % [facility] Comment: Interpretive Data Percent cell count reference ranges are not reported, since discordance with absolute values may lead to misinterpretation of CBC data. Current Interpretive Data was last revised on 2018. Testing performed by: [facility], [address] [place] [phone] Blood 10/05/2024 8:33 AM LOCKSTITCH WAISTBAND SETTER 10/05/2024 8:35 AM LOCKSTITCH WAISTBAND SETTER us Ayden Martinez MD PhD LAB BLOOD ORDERABL ES Final Result [facility] Department [place] [address] * CBC with auto differential (10/05/2024 8:33 AM LOCKSTITCH WAISTBAND SETTER) WBC 5.1 3.8 - 9.9 K/cumm Comment:Testing performed by : [facility], [address] [place] [address] Hgb 15.5 13.0 - 17.5 g/dL [facility] Comment:Testing performed by : [facility], [address] [place] [address] Hct 46.4 38.9 - 50.3 % [facility] Comment:Testing performed by : [facility], [address] [place] [address] Plt 177 150 - 400 K/cumm [facility] Comment:Testing performed by : [facility], [address] [place] [address] MPV 8.4 6.8 - 10.4 fL [facility]ER[facility] BJ Comment:Testing performed by : [facility], [address] [place] [address] RBC 5.34 4.30 - 5.80 M/cumm [facility] Comment:Testing performed by : [facility], [address] [place] [address] MCV 86.9 81.3 - 96.4 fL [facility] Comment:Testing performed by : [facility], [address] [place] [address] MCH 28.9 27.1 - 33.3 pg [facility] Comment:Testing performed by : [facility], [address] [place] [address] MCHC 33.3 32.3 - 35.7 g/dL [facility]J Comment:Testing performed by : [facility], [address] [place], [place] [phone] RDW CV 14.6 11.1 - 14.9 % [facility] Comment:Testing performed by : [facility], [address] [place] [phone] NRBC abs 0.00 0.00 - 0.01 K/cumm [facility] Comment:Testing performed by : [facility], [address] [place] [phone] Blood 10/05/2024 8:33 AM LOCKSTITCH WAISTBAND SETTER 10/05/2024 8:35 AM LOCKSTITCH WAISTBAND SETTER Ayden Martinez MD PhD LAB BLOOD ORDERABL ES Final Result Performing Organization Address City/[facility]/ZIP Co de Phone Number [facility] Department [place] [address] * Gamma GT (10/05/2024 8:33 AM LOCKSTITCH WAISTBAND SETTER) [facility] GGT 41 10 - 50 Units/L Blood 10/05/2024 8:33 AM LOCKSTITCH WAISTBAND SETTER 10/05/2024 8:36 AM LOCKSTITCH WAISTBAND SETTER Ayden Martinez MD PhD LAB BLOOD ORDERABL ES Final Result Performing Organization Address [facility] [facility] de Phone Number [facility] Department [place] [address] * (ABNORMAL) Comprehensive metabolic panel (10/05/2024 8:33 AM LOCKSTITCH WAISTBAND SETTER) [facility] Sodium 142 135 - 145 mmol/L Potassium, pl 4.3 3.3 - 4.9 mmol/L [facility] Chloride 105 97 - 110 mmol/L [facility] CO2 34(H) 22 - 32 mmol/L [facility] Anion gap 3 2 - 15 mmol/L [facility] BUN 13 6 - 25 mg/dL [facility] Creatinine 1.68(H) 0.80 - 1.30 mg/dL [facility] Glucose 161 70 - 199 mg/dL [facility] Comment: Interpretive Data Fasting glucose >/= 126 mg/dl is diagnostic for diabetes. Fasting is defined as no caloric intake for at least 8 hours. Fasting glucose between 100 mg/dl to 125 mg/dl is diagnostic of prediabetes. In a patient with classic symptoms of hyperglycemia or hyperglycemic crisis, a random glucose >/= 200 mg/dl is diagnostic for diabetes. In the absence of unequivocal hyperglycemia, results should be confirmed by repeat testing. The classification and Diagnosis of Diabetes Diabetes Care 202; 46: S19-S40. Current interpretive data was last revised 2022. Calcium 9.6 8.5 - 10.3 mg/dL [facility] Bilirubin, total 0.3 0.1 - 1.2 mg/dL [facility] Protein, pl 6.7 6.5 - 8.5 g/dL [facility] Albumin 4.0 3.5 - 5.0 g/dL [facility] Alk phos 93 40 - 130 Units/L [facility] ALT 32 7 - 55 Units/L [facility] AST 20 10 - 50 Units/L [facility] Blood 10/05/2024 8:33 AM LOCKSTITCH WAISTBAND SETTER 10/05/2024 8:36 AM LOCKSTITCH WAISTBAND SETTER Ayden Martinez MD PhD LAB BLOOD ORDERABL ES Final Result [facility] Department [place] [address] from Last 3 Months Insurance [facility] MEDICARE [facility] Member Subscriber Plan / Payer (Ef fective 2020-Present) Name:Henrry Owen Relation to Subscriber:Self Name:Henrry Owen Payer ID:[id number] (NAIC) Type:MEDICARE RISK OTHER [facility] [address] [facility] [address] [facility] Advance Directives For more information, please contact: [phone] Documents on File Type Date Recorded Patient Piece Dyeing Machine Tender Expl anation Power of Interpreter For The Deaf 06/23/2023 11:36 AM ADVANCE DIRECTIVE 01/09/2022 9:50 AM Power of Interpreter For The Deaf-Medical * Full Code (Latest Code Status on File) Date Activated Date Inactivated Comments 06/24/2023 4:31 AM 06/25/2023 9:14 PM * Full Code Date Activated Date Inactivated Comments 01/27/2023 9:00 PM 01/30/2023 3:30 PM Care Teams Studio Camera Operator Relationship Specialty Start Date End Date Leonides Mcneil MD [address] [place] [address] PCP - General 10/02/17 Kailey Corrales MD [address] [facility] [address] [place] [address] Radiation Oncologist Radiation Oncology 10/01/22 Ayden Martinez MD PhD [address] [facility] [address] [place] [address] Medical Oncologist/Purchasing Contracting Clerk Medical Oncology 10/01/22
--- OUTSIDE RECORDS SUMMARY | 2024-12-05 12:36 | XMS_ITS | Clinical Summary ---
Author Organization [facility] Address [address] [facility] [place] [address] Care Team Providers Care Radiotelegrapher Name Role Phone Leonides Mcneil MD Primary Care Provider + William Peña MD Unavailable [phone] Greta Aldana APRN-AIR QUALITY MANAGER Unavailable Source Comments [facility],non-owned Affiliates and Associated Physician Practices is amultiple site organization consisting of ambulatory clinics and hospital sitesin [place], [place], [place] and [place]. This disclosure is being madepursuant to the Care Everywhere program and may not contain all information available regarding this patient. Last updated 18.[facility] Allergies Active Allergy Reactions Criticality Noted Date Comments Glimepiride Rash Medium 01/04/2018 Amlodipine Base Hepatic Injury High 01/03/2018 Sulfamethoxazole W-Trimethoprim Rash Medium 11/26 Prochlorperazine Rash Medium 05/20/2023 Medications * Be aware that medications may not be up to date on this document. Alwaysverify current medications with the patient. Medication Sig Dispensed Refills Start Date End Date Status escitalopram (LEXAPRO) 20 MG tabletIndications:Fern plastic astrocytoma (HCC),Current mild episode of major depressive disorder, unspecified whether recurrent (HCC) TAKE 1 TABLET BY MOUTH ONCE DAILY 90 tablet 2 08/29/2019 Active lisinopril (PRINIVIL; ZESTRIL) 20 MG tablet Take 1 (one) tablet by mouth once daily 09/11/2021 Active ondansetron (Zofran) 4 MG tablet Take 1 (one) tablet by mouth every 6 hours as needed for Nausea/Vomiting Active Cetirizine HCl (ZYRTEC ALLERGY PO) Activ e temozolomide (Temodar) 140 MG capsule 07/08/2023 Active lamoTRIgine (LaMICtal) 200 MG tablet TAKE 1 AND 1/2 TABLETS BY MOUTH 2 TIMES DAILY 270 tablet 09/03/2024 Active Active Problems Problem Noted Date Diagnosed Date Word finding difficulty 06/04/2021 Hx of benign neoplasm of brain 06/04/2021 Depression 08/11/2018 CKD (chronic kidney disease) stage 3, GFR 30-59 ml/min 03/17/2018 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 (F LUZONE; FLULAVAL; FLUARIX; AFLURIA QUADRIVALENT; 6MO+), 0.5 ML (IIV4) 11/12/2017 Family History Medical History Relation Name Comments CAD (Coronary Artery Disease) Father Other Father heart failure Relation Name Status Comments Father Social History Tobacco Use Types Packs/Day Years Used Date Smoking Tobacco: Never Smokeless Tobacco: Never Alcohol Use Standard Drinks/Week Comments No 0 (1 standard drink = 0.6 oz pur e alcohol) PHQ-2 Answer Date Recorded PHQ2 TOTAL SCORE 0 12/18/2021 Sex and Gender Information Value Date Recorded Sex Assigned at Male 12/06/2021 8:05 AM COMMUNITY ARTS OFFICER Gender Identity Male 12/06/2021 8:05 AM COMMUNITY ARTS OFFICER Sexual Orientation Straight 12/06/2021 8: 05 AM COMMUNITY ARTS OFFICER Last Filed Vital Signs Vital Sign Reading Time Taken Comments Blood Pressure 150/86 12/18/2021 2:33 PM COMMUNITY ARTS OFFICER Pulse 71 12/18/2021 2:33 PM COMMUNITY ARTS OFFICER Temperature 36.2 C (97.1 F) 12/18/2021 2:33 PM COMMUNITY ARTS OFFICER Respiratory Rate 16 05/26/2022 2:18 PM CDT Oxygen Saturation 99% 12/18/2021 2:33 PM COMMUNITY ARTS OFFICER RA Inhaled Oxygen Concentration - - Weight 81.6 kg (180 lb) 01/13/2024 11:35 AM CDT Height 170.2 cm (5' 7 ) 01/13/2024 11:35 AM CDT Body Mass Index 28.19 01/13/2024 11:35 AM CDT Plan of Treatment Upcoming Encounters Date Type Department Care Team (Late st Contact Info) Description 01/11/2025 11:40 AM CDT Office Visit [facility] [address] [facility] [address] [place] [address] [place] [address] [facility] [address] [place] [address] Health Maintenance Due Date Last Done Comments COLOGUARD (AGES 45-75) - COLON CA SCREENING 1960 COLON MONITORING 1960 COLONOSCOPY - COLON CA SCREENING 1960 CT COLONOGRAPHY - COLON CA SCREENING 1960 Colorectal Cancer Screening 1960 FIT - COLON CA SCREENING 1960 FLEX SIG - COLON CA SCREENING 1960 LIPID TESTING 1960 HIV SCREENING 1975 HEPATITIS C SCREENING 08/13/1978 DTAP/TDAP/TD VACCINES (1 - Tdap) 1979 PNEUMOCOCCAL VACCINE 50+ (1 of 1 - PCV) 2010 ZOSTER VACCINE (1 of 2) 2010 COVID-19 VACCINE (1 - season) 2024 INFLUENZA VACCINE (#1) 2024 11/12/2017 DEPRESSION SCREENING 10/26/2024 05/26/2022 MEDICARE AWV CALENDAR YEAR 2024 SCREENING FOR DIABETES 04/11/2025 2, 11/22/2018, 04/27/2018, Additional history exists Respiratory Syncytial Virus (RSV) Vaccine Pt: or over 60 yrs (1 - 1-dose 75+ series) 2035 HEPATITIS B VACCINE Aged Out No longe r eligible based on patient's age to complete this topic HIB VACCINE Aged Out No longer eligi ble based on patient's age to complete this topic HPV VACCINE Aged Out No longer eligi ble based on patient's age to complete this topic MENINGOCOCCAL (Group B) VACCINE Aged Out No longer eligible based on patient's age to complete this topic MENINGOCOCCAL VACCINE Aged Out No allison torrey eligible based on patient's age to complete this topic PNEUMOCOCCAL VACCINE Aged Out No long er eligible based on patient's age to complete this topic Medical Devices Implanted Type Area Install And Repair Technician Device Identifier Shelf Expiration Date Model / Serial / Lot Plate Med Mdfc 2 Hl Strg 1.5mm Scr Bn Ti Implanted:Qty: 4 on 11/11/2017 by Hayden Barone MD at [facility] [employer] [id number] / / Lorenze Screw Cartridge 4.0 Implanted:Qty: 2 on 11/11/2017 by Hayden Barone MD at [facility] [id number] / / Description:8 screws used Graft Tissue Drgn + Bvn Clgn Mtrx 1x1in Implanted:Qty: 1 on 11/11/2017 by Hayden Barone MD at [facility] Left: Cranial Integra [employer] 01/24/2020 [id number] / / [id number] Dev Clsr Aaron Duraseal Dura Pg Slnt Sys 5 Implanted:Qty: 1 on 11/11/2017 by Hayden Barone MD at [facility] Left: Cranial Integra [employer] Alex 10/25/2019 [id number] / / Procedures Procedure Name Priority Date/Time Associated Diagnosis Comments COMPREHENSIVE METABOLIC PANEL Routine 04/11/2022 3:33 PM CDT Seizures (HCC) from Last 3 Months or Most Recently Relevant to Health Maintenance Results * (ABNORMAL) COMPREHENSIVE METABOLIC PANEL (04/11/2022 3:33 PM CDT) Glucose 84 65 - 99 mg/dL [facility] INSURANCE BILL BUN 15 8 - 27 mg/dL [facility] Creatinine 1.77(H) 0.76 - 1.27 mg/dL [facility] INSURANCE BILL eGFR by CKD-EPI 43(L) >59 mL/min/1.7 3 [facility] INSURANCE BILL BUN/Creatinine Ratio 8(L) 10 - 24 [facility] B[facility] Sodium 140 134 - 144 mmol/L [facility] BILL Potassium 4.2 3.5 - 5.2 mmol/L [facility] BILL Chloride 103 96 - 106 mmol/L [facility] B[facility] CO2 27 20 - 29 mmol/L [facility] BILL Calcium 9.1 8.6 - 10.2 mg/dL [facility] BILL Protein Total 6.0 6.0 - 8.5 g/dL [facility] BILL Albumin 3.8 3.8 - 4.8 g/dL [facility] BILL Globulin Total 2.2 1.5 - 4.5 g/dL [facility] INSURANCE BILL Albumin/Globulin Ratio 1.7 1.2 - 2.2 [facility] INSURANCE BILL Bilirubin Total 0.4 0.0 - 1.2 mg/dL [facility] INSURANCE BILL Alkaline Phosphatase 87 44 - 121 IU/L [facility]UR[facility] B[facility] AST 13 0 - 40 IU/L [facility] INSURANCE BILL ALT 10 0 - 44 IU/L [facility] INSURANCE BILL Blood BLOOD SPECIMEN / Unknown 04/11/2022 3:33 PM CDT 04/11/2022 Narrative Resulting Agency Comment [facility] [address] [id number] Hayden Finley MD LAB - CHEMISTRY ANNA HELM [facility] INSURANCE BILL [address] [place] [address] from Last 3 Months or Most Recently Relevant to Health Maintenance Advance Directives * Full Code (Latest Code Status on File) Date Activated Date Inactivated Comments 11/14/2017 7:58 AM 11/21/2017 11:28 AM * Full Code Date Activated Date Inactivated Comments 11/11/2017 1:49 PM 11/13/2017 5:06 PM * Full Code Date Activated Date Inactivated Comments 10/12/2017 1:05 PM 10/16/2017 2:52 PM Care Teams Radiotelegrapher Relationship Specialty Start Date End Date Leonides Mcneil MD [address] [address] PCP - General Family Medicine 01/14/17 [place] Peña [place] [address] [address] Brim Welt Sewing Machine Operator/Oncologist Hematology and Oncology 06/07/21 Greta Aldana, MECHANICAL ENGINEERING COOP-AIR QUALITY MANAGER [address] [address] Advance Practice Nurse Hematology and Oncology 06/07/21
--- OUTSIDE RECORDS SUMMARY | 2024-12-05 12:36 | XMS_ITS | Clinical Summary ---
Author Organization [facility] Address [address] [place] [address] Care Team Providers Care Reflector Driller And Deburrer Name Role Phone Unavailable Primary Care Provider Unavailabl e Allergies No known active allergies Medications lamoTRIgine (LaMICtal) 25 MG tablet Take 2 tablets (50 mg total) by mouth 2 (two) times a day. 60 tablet 11/21/2017 Active dexamethasone (DECADRON) 4 MG tablet Take 1 tablet (4 mg total) by mouth 3 (three) times a day for 5 doses. 5 tablet 11/21/2017 Active dexamethasone (DECADRON) 4 MG tablet Take 1 tablet (4 mg total) by mouth 2 (two) times a day for 12 doses. 12 tablet 11/23/2017 Active dexamethasone (DECADRON) 4 MG tablet Take 1 tablet (4 mg total) by mouth once a day for 6 doses. 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 Social History Tobacco Use Types Packs/Day Years Used Date Smoking Tobacco: Never Assessed Sex and Gender Information Value Date Recorded Sex Assigned at Not on file Legal Sex Male 3:17 PM EST Gender Identity Not on file Sexual Orientation Not on file Last Filed Vital Signs Vital Sign Reading Time Taken Comments Blood Pressure 140/88 11/21/2017 7:20 AM WET SILK HANGER Pulse 68 11/21/2017 7:20 AM WET SILK HANGER Temperature 36.1 C (97 F) 11/21/2017 7:20 AM WET SILK HANGER Respiratory Rate 18 11/21/2017 7:20 AM WET SILK HANGER Oxygen Saturation 93% 11/21/2017 7:20 AM WET SILK HANGER Inhaled Oxygen Concentration - - Weight 82.6 kg (182 lb) 11/13/2017 5:09 PM WET SILK HANGER Height 172.7 cm (5' 8 ) 11/13/2017 5:09 PM WET SILK HANGER Body Mass Index 27.67 11/13/2017 5:09 PM WET SILK HANGER Plan of Treatment Not on file Advance Directives * Full Resuscitation (Latest Code Status on File) Date Activated Date Inactivated Comments 11/13/2017 5:54 PM 11/21/2017 1:19 PM
--- OUTSIDE RECORDS SUMMARY | 2024-12-05 12:36 | XMS_ITS | Referral Summary ---
Author Organization [facility] Address [address] [place] [address] Care Team Providers Care Base Ply Hand Name Role Phone Leonides Mcneil MD Primary Care Prov ider Kailey Corrales MD Unavailable Ayden Martinez MD PhD Unavailable + Encounters Date Type Department Care Team Description 11/30/2024 4:00 PM BREAD PACKER Telemedicine [facility] [address] [place] [address] Floor 1, [address] [place] [address] Ayden Martinez, PhD Malignant neoplasm of overlapping sites of brain (HCC) (Primary Dx); Seizures (HCC); Stage 3 chronic kidney disease, unspecified whether stage 3a or 3b CKD (HCC) 11/28/2024 4:11 PM BREAD PACKER - 11/28/2024 11:59 PM BREAD PACKER Hospital Encounter [facility] [address] [place] [address] Malignant neoplasm of overlapping sites of brain (HCC) Discharge Disposition: Discharge to home or self care 11/11/2024 [facility] Work [facility] [address] [place] [address] Floor 1, [address] [place] [phone] Judith Campa LCSW 11/07/2024 Social Work [facility] [address] [place] [address] Floor 1, [address] [place] [phone] Judith Campa LCSW 10/29/[address] [facility] Scanning, Provider 10/05/2024 8:45 AM BREAD PACKER Lab [facility] - Lab Collection [address] [facility] [address] [place] [address] Malignant neoplasm of overlapping sites of brain (HCC) 10/05/2024 8:30 AM BREAD PACKER Lab [facility] Lab [address] [facility] Floor 5 [place] [address] Malignant neoplasm of overlapping sites of brain (HCC) 10/05/2024 9:20 AM BREAD PACKER Office Visit [facility] [address] [place] [address] Floor 1, [address] [place] [address] Ayden Martinez MD PhD Malignant neoplasm of overlapping sites of brain (HCC) (Primary Dx) 09/08/2024 Social Work [facility] [address] [place] [address] Floor 1, [address] [place] [address] Judith Campa LCSW 09/08/2024 Orders Only [facility] [address] [place] [address] Floor 1, [address] [place] [address] Evelyn Bustillo Malignant neoplasm of overlapping sites of brain (HCC) (Primary Dx) from Last 3 Months Allergies Active Allergy Reactions Criticality Noted Date [...] by Liu Cruz MD PhD on 12/22/2021 Immunizations Name Administration Dates Next Due Influenza, Quadrivalent, Spl it, Preservative Free, Intramuscular 11/12/2017 Social History Tobacco Use Types Packs/Day Years [...] on file Legal Sex Male 9:31 AM BREAD PACKER Gender Identity Not on file Sexual Orientation Straight 12/19/2021 11 :33 AM BREAD PACKER Last Filed Vital Signs Vital Sign Reading Time Taken Comments Blood Pressure 151/86 10/05/2024 8:38 AM BREAD PACKER Pulse 73 10/05/2024 8:38 AM BREAD PACKER Temperature 36.9 C (98.4 F) 10/05/2024 8:38 AM BREAD PACKER Respiratory Rate 17 10/05/2024 8:38 AM BREAD PACKER Oxygen Saturation 95% 10/05/2024 8:38 AM BREAD PACKER Inhaled Oxygen Concentration - - Weight 81.6 kg (180 lb) 11/28/2024 4:20 PM BREAD PACKER Height 172.7 cm (5' 8 ) 11/28/2024 4:20 PM BREAD PACKER Body Mass Index 27.37 11/28/2024 4:20 PM BREAD PACKER Plan of Treatment Not on file Procedures Procedure Name Priority Date/Time Associated Diagnosis Comments MRI BRAIN W WO CONTRAST Schedule LENNOX, Read LENNOX (Appt Today, Awaiting Results) 11/28/2024 5:13 PM BREAD PACKER Malignant neoplasm of overlapping sites of brain (HCC) GAMMA GT Routine 10/29/2024 8:42 AM BREAD PACKER Malignant neoplasm of overlapping sites of brain (HCC) CBC WITH AUTO DIFFERENTIAL Routine 10/29/2024 8:42 AM BREAD PACKER Malignant neoplasm of overlapping sites of brain (HCC) COMPREHENSIVE METABOLIC PANEL STAT 10/29/2024 8:42 AM BREAD PACKER Malignant neoplasm of overlapping sites of brain (HCC) SCAN - LABS 10/29/2024 EGFR STAT 10/05/2024 8:33 AM BREAD PACKER Malignant neoplasm of overlapping sites of brain (HCC) DIFFERENTIAL AUTO Routine 10/05/2024 8:3 3 AM BREAD PACKER Malignant neoplasm of overlapping sites of brain (HCC) COMPREHENSIVE METABOLIC PANEL STAT 10/05/2024 8:33 AM BREAD PACKER Malignant neoplasm of overlapping sites of brain (HCC) CBC WITH AUTO DIFFERENTIAL Routine 10/05/2024 8:33 AM BREAD PACKER Malignant neoplasm of overlapping sites of brain (HCC) GAMMA GT Routine 10/05/2024 8:33 AM BREAD PACKER Malignant neoplasm of overlapping sites of brain (HCC) from Last 3 Months Results * MRI Brain W WO Contrast (11/28/2024 5:13 PM BREAD PACKER) Anatomical Region Laterality Modality Head and Neck N/A Magnetic Resonan ce 11/29/2024 9:49 AM BREAD PACKER Impressions 11/29/2024 1:06 PM BREAD PACKER Postsurgical changes of left frontotemporal craniotomy for [...] Abdon Maldonado M.D. Narrative 11/29/2024 1:06 PM BREAD PACKER EXAMINATION: Magnetic resonance imaging (MRI) of the [...] it. Electronically signed by: Abdon Maldonado M.D. Ayden Martinez MD PhD IMG MRI PROCEDURES Final Result * (ABNORMAL) CBC with auto differential (10/29/2024 8:42 AM BREAD PACKER) [facility] WBC 5.6 3.8 - 10.8 Thousand/u L [...] [facility] Blood 10/29/2024 8:42 AM BREAD PACKER 10/29/2024 10:29 AM BREAD PACKER Ayden Martinez MD PhD LAB BLOOD ORDERABL ES Final Result [facility] [address] [place] [address] * Gamma GT (10/29/2024 8:42 AM BREAD PACKER) Pathologist [facility] GGT 36 3 - 70 U/L [facility] Blood 10/29/2024 8:42 AM BREAD PACKER 10/29/2024 10:29 AM BREAD PACKER Ayden Martinez MD PhD LAB BLOOD ORDERABL ES Final Result [facility] [address] [place] [address] * (ABNORMAL) Comprehensive metabolic panel (10/29/2024 8:42 AM BREAD PACKER) Pathologist [facility] Glucose 156(H) 65 - 99 mg/dL [facility] Comment: Fasting reference interval For someone without known diabetes, a glucose value >125 mg/dL indicates that they may have diabetes and this should be confirmed with a follow-up test. BUN 13 7 - 25 mg/dL [facility] Creatinine 1.83(H) 0.70 - 1.35 mg/dL [facility] eGFR 41(L) > OR = 60 mL/min/1.7 3m2 [facility] BUN/creat ratio 7 6 - 22 (calc) [facility] Sodium 137 135 - 146 mmol/L [facility] Potassium, pl 4.0 3.5 - 5.3 mmol/L [facility] Chloride 102 98 - 110 mmol/L [facility] CO2 30 20 - 32 mmol/L [facility] Calcium 9.7 8.6 - 10.3 mg/dL [facility] Protein, sr 6.5 6.1 - 8.1 g/dL [facility] Albumin 4.0 3.6 - 5.1 g/dL [facility] GLOBULIN 2.5 1.9 - 3.7 g/dL (calc) [facility] Alb/glob ratio 1.6 1.0 - 2.5 (calc) [facility] Bilirubin, total 0.3 0.2 - 1.2 mg/dL [facility] Alk phos 81 35 - 144 U/L [facility] AST 17 10 - 35 U/L [facility] ALT (SGPT) 32 9 - 46 U/L [facility] Blood 10/29/2024 8:42 AM BREAD PACKER 10/29/2024 10:29 AM BREAD PACKER us Ayden Martinez MD PhD LAB BLOOD ORDERABL ES Final Result Performing Organization Address [facility]/ZIP Co de Phone Number [facility] [address] [place] [address] * SCAN - LABS (10/29/2024) us Provider Scanning Final Result * (ABNORMAL) eGFR (10/05/2024 8:33 AM BREAD PACKER) eGFR 45(L) >=60 mL/min/1. 73 m2 Comment: [...] last reviewed 2021. Blood 10/05/2024 8:33 AM BREAD PACKER 10/05/2024 8:36 AM BREAD PACKER us Ayden Martinez MD PhD LAB BLOOD ORDERABL ES Final Result [facility] [place] [address] * Differential, auto (10/05/2024 8:33 AM BREAD PACKER) Neutrophil abs 3.1 1.5 - 6.5 K/cumm Comment:Testing performed by : [facility], [address] [place] [phone] Lymphocyte abs 1.4 0.8 - 3.3 K/cumm [facility] BJ Comment:Testing performed by : [facility], [address] [place] [phone] Monocyte abs 0.4 0.2 - 0.8 K/cumm [facility] BJ Comment:Testing performed by : [facility], [address] [place] [phone] Eosinophil abs 0.1 0.0 - 0.5 K/cumm [facility]J Comment:Testing performed by : [facility], [address] [place] [phone] Basophil abs 0.1 0.0 - 0.1 K/cumm [facility] BJ Comment:Testing performed by : [facility], [address] [place] [phone] Neutrophil pct 60.9 % [facility] Comment: Interpretive Data Percent cell count reference ranges are not reported, since discordance with absolute values may lead to misinterpretation of CBC data. Current Interpretive Data was last revised on 2018. Testing performed by: [facility], [address] [place] [phone] Lymphocyte pct 27.6 % [facility] Comment: Interpretive Data Percent cell count reference ranges are not reported, since discordance with absolute values may lead to misinterpretation of CBC data. Current Interpretive Data was last revised on 2018. Testing performed by: [facility], [address] [place] [phone] Monocyte pct 8.0 % [facility] Comment: Interpretive Data Percent cell count reference ranges are not reported, since discordance with absolute values may lead to misinterpretation of CBC data. Current Interpretive Data was last revised on 2018. Testing performed by: [facility], [address] [place] [phone] Eosinophil pct 2.0 % RENE GARCIA Comment: Interpretive Data Percent cell count reference ranges are not reported, since discordance with absolute values may lead to misinterpretation of CBC data. Current Interpretive Data was last revised on 2018. Testing performed by: [facility], [address] [place] [address] Basophil pct 1.5 % RENE GARCIA Comment: Interpretive Data Percent cell count reference ranges are not reported, since discordance with absolute values may lead to misinterpretation of CBC data. Current Interpretive Data was last revised on 2018. Testing performed by: [facility], [address] [place] [address] Blood 10/05/2024 8:33 AM BREAD PACKER 10/05/2024 8:35 AM BREAD PACKER us Ayden Martinez MD PhD LAB BLOOD ORDERABL ES Final Result [facility] Department of Laboratories [place], [place] [id number] * CBC with auto differential (10/05/2024 8:33 AM BREAD PACKER) WBC 5.1 3.8 - 9.9 K/cumm Comment:Testing performed by : [facility], [address] [place] [address] Hgb 15.5 13.0 - 17.5 g/dL RENE GARCIA Comment:Testing performed by : [facility], [address] [place] [address] Hct 46.4 38.9 - 50.3 % RENE GARCIA Comment:Testing performed by : [facility], [address] [place] [address] Plt 177 150 - 400 K/cumm RENE GARCIA Comment:Testing performed by : [facility], [address] [place], [place] [phone] MPV 8.4 6.8 - 10.4 fL RENE GARCIA Comment:Testing performed by : [facility], [address] [place], [place] [phone] RBC 5.34 4.30 - 5.80 M/cumm RENE GARCIA Comment:Testing performed by : [facility], [address] [place], [place] [phone] MCV 86.9 81.3 - 96.4 fL RENE GARCIA Comment:Testing performed by : [facility], [address] [place], [place] [phone] MCH 28.9 27.1 - 33.3 pg RENE GARCIA Comment:Testing performed by : [facility], [address] [place], [place] [phone] MCHC 33.3 32.3 - 35.7 g/dL RENE GARCIA Comment:Testing performed by : [facility], [address] [place], [place] [phone] RDW CV 14.6 11.1 - 14.9 % RENE [facility] Comment:Testing performed by : [facility], [address] [place], [place] [phone] NRBC abs 0.00 0.00 - 0.01 K/cumm RENE GARCIA Comment:Testing performed by : [facility], [address] [place], [place] [phone] Blood 10/05/2024 8:33 AM BREAD PACKER 10/05/2024 8:35 AM BREAD PACKER us Ayden Martinez MD PhD LAB BLOOD ORDERABL ES Final Result [facility] Department [place] [address] * Gamma GT (10/05/2024 8:33 AM BREAD PACKER) GGT 41 10 - 50 Units/L Blood 10/05/2024 8:33 AM BREAD PACKER 10/05/2024 8:36 AM BREAD PACKER us Ayden Martinez MD PhD LAB BLOOD ORDERABL ES Final Result [facility] Department [place] [address] * (ABNORMAL) Comprehensive metabolic panel (10/05/2024 8:33 AM BREAD PACKER) Sodium 142 135 - 145 mmol/L Potassium, pl 4.3 3.3 - 4.9 mmol/L [facility] Chloride 105 97 - 110 mmol/L [facility] CO2 34(H) 22 - 32 mmol/L [facility] Anion gap 3 2 - 15 mmol/L [facility] BUN 13 6 - 25 mg/dL [facility] Creatinine 1.68(H) 0.80 - 1.30 mg/dL [facility] Glucose 161 70 - 199 mg/dL [facility] Comment: Interpretive Data Fasting glucose >/= 126 [...] Calcium 9.6 8.5 - 10.3 mg/dL CERN[facility] Bilirubin, total 0.3 0.1 - 1.2 mg/dL [facility] Protein, pl 6.7 6.5 - 8.5 g/dL [facility] Albumin 4.0 3.5 - 5.0 g/dL [facility] Alk phos 93 40 - 130 Units/L [facility] ALT 32 7 - 55 Units/L [facility] AST 20 10 - 50 Units/L [facility] Blood 10/05/2024 8:33 AM BREAD PACKER 10/05/2024 8:36 AM BREAD PACKER Ayden Martinez MD PhD LAB BLOOD ORDERABL ES Final Result [facility] [place] [address] from Last 3 Months Insurance [facility] MEDICARE [employer]ARE Advance Directives For more information, please contact: [phone] Documents on File Type Date Recorded Patient Ink Blender Expl anation Power of Dye Reel Operator 06/23/2023 11:36 AM ADVANCE DIRECTIVE 01/09/2022 9:50 AM Power of Dye Reel Operator-Medical * Full Code (Latest Code Status on File) Date Activated Date Inactivated Comments 06/24/2023 4:31 AM 06/25/2023 9:14 PM * Full Code Date Activated Date Inactivated Comments 01/27/2023 9:00 PM 01/30/2023 3:30 PM Care Teams Base Ply Hand Relationship Specialty Start Date End Date Leonides Mcneil MD [address] [facility] [place] [address] PCP - General 10/02/17 Kailey Corrales MD [address] [facility] [address] [place] [address] Radiation Oncologist Radiation Oncology 10/01/22 Ayden Martinez MD PhD [address] [facility] [address] [place] [address] Medical Oncologist/Hydro Plant Technician Medical Oncology 10/01/22
--- OUTSIDE RECORDS SUMMARY | 2024-12-05 12:36 | XMS_ITS ---
Author Organization [facility] Address [facility]ly [facility] [place] [address] Care Team Providers Care Stevedore Dock Name Role Phone Leonides Mcneil MD Primary Care Prov ider Kailey oCrrales MD Unavailable Ayden Martinez MD PhD Unavailable + Active Problems Problem Noted Date Diagnosed Date [...] by Liu Cruz MD PhD on 12/22/2021 Current Oncology Plans Vorasidenib PO 28 Day Cycles - Brain* Plan Start Date:2024 Plan Provider:Ayden Martinez MD PhD Linked Problems Malignant neoplasm of overla pping sites of brain (HCC) Treatment Medications Current Day (Day 1 , Dispense Cycle - Planned for 2024) Next Day (Day 1, Cycle 1 - Planned for 09/07/2024) vorasidenib (VORANIGO) vorasidenib (EDUIN NIGO) 40 mg tablet No medications scheduled. Past Plans Line Care Plan Name Start Date Discontinue Date Treatment Medications Discontinue Reason Plan Provider IV MAINTENANCE THERAPY PLAN 01/23/2022 01/05/2024 No medications scheduled. Automatic discontinuation of dormant plans Sid Siu MD Oncology Chemotherapy Treatment Plan Name Start Date Discontinue Date Treatment Medications Discontinue Reason Plan Provider Cycles Temozolomide 5/28 Schedule - Post Radiation - 28 Day Cycles - Brain 3 02/24/2024 temozolomide (TEMODAR) Therapy Complete Ayden Martinez MD PhD 11 of 12 cycles started Temozolomide 5/28 Schedule - Post Radiation - 28 Day Cycles - Brain 3 04/08/2023 temozolomide (TEMODAR) Therapy Complete Ayden Martinez MD PhD 2 of 6 cycles started [id number] - [facility] - Brain - [id number] - Expansion Phase - [id number] 2 09/03/2022 [facility] [id number] (/[place] T811) Progressive Disease Ayden Martinez MD PhD 10 of 14 cycles started Oncology Supportive Care Plan Name Start Date Discontinue Date Treatment Medications Discontinue Reason Plan Provider HYDRATION THERAPY PLAN 01/27/2022 01/05/2024 No medications scheduled. 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
--- OUTSIDE RECORDS SUMMARY | 2024-12-05 12:36 | XMS_ITS | Referral Summary ---
Author Organization [facility] Address [address] [facility] [place] [address] Care Team Providers Care Pull Tab Dealer Name Role Phone Leonides Mcneil MD Primary Care Provider + William Peña MD Unavailable [phone] Greta Aldana APRN-ELDER ASSISTANT Unavailable Source Comments [facility],non-owned Affiliates and Associated Physician Practices is amultiple site organization consisting of ambulatory clinics and hospital sitesin [place], [place], [place] and [place]. This disclosure is being madepursuant to the Care Everywhere program and may not contain all information available regarding this patient. Last updated 18.[facility] Allergies Active Allergy Reactions Criticality Noted Date [...] AFLURIA QUADRIVALENT; 6MO+), 0.5 ML (IIV4) 11/12/2017 Social History Tobacco Use Types Packs/Day Years Used Date Smoking Tobacco: Never Smokeless Tobacco: Never Alcohol Use Standard Drinks/Week Comments No 0 (1 standard drink = 0.6 oz pur e alcohol) PHQ-2 Answer Date Recorded PHQ2 TOTAL SCORE 0 12/18/2021 Sex and Gender Information Value Date Recorded Sex Assigned at Male 12/06/2021 8:05 AM TOPOLOGY PROFESSOR Gender Identity Male 12/06/2021 8:05 AM TOPOLOGY PROFESSOR Sexual Orientation Straight 12/06/2021 8: 05 AM TOPOLOGY PROFESSOR Last Filed Vital Signs Vital Sign Reading Time Taken Comments Blood Pressure 150/86 12/18/2021 2:33 PM TOPOLOGY PROFESSOR Pulse 71 12/18/2021 2:33 PM TOPOLOGY PROFESSOR Temperature 36.2 C (97.1 F) 12/18/2021 2:33 PM TOPOLOGY PROFESSOR Respiratory Rate 16 05/26/2022 2:18 PM CDT Oxygen Saturation 99% 12/18/2021 2:33 PM TOPOLOGY PROFESSOR RA Inhaled Oxygen Concentration - - Weight 81.6 kg (180 lb) 01/13/2024 11:35 AM CDT Height 170.2 cm (5' 7 ) 01/13/2024 11:35 AM CDT Body Mass Index 28.19 01/13/2024 11:35 AM CDT Functional Status Functional Status Response Date of Assess ment Is person deaf or have serious hearing difficult y? No 11/12/2017 Is person blind or have serious difficulty seein g? No 11/12/2017 Does person have serious dif ficulty walking/climbing stairs? No 11/12/2017 Does person have difficulty dressing/bathing? No 11/12/2017 Does person have difficulty doing errands alone? No 11/12/2017 Cognitive Status Response Date of Assessm ent Does person have difficulty concentrating/remembering/making decisions? No 11/12/2017 Plan of Treatment Upcoming Encounters Date Type Department Care Team (Late st Contact Info) Description 01/11/2025 11:40 AM CDT Office Visit [facility] [address] [facility] [address] [place] [phone] [place] [address] [facility] [address] [place] [phone] Medical Devices Implanted Type Area Brake Repairer Air Device Identifier Shelf Expiration Date Model / Serial / Lot Plate Med Mdfc 2 Hl Strg 1.5mm Scr Bn Ti Implanted:Qty: 4 on 11/11/2017 by Hayden Barone MD at [facility] [employer] [id number] / / Elliot Screw Cartridge 4.0 Implanted:Qty: 2 on 11/11/2017 by Hayden Barone MD at [facility] [id number] / / Description:8 screws used Graft Tissue Drgn + Bvn Clgn Mtrx 1x1in Implanted:Qty: 1 on 11/11/2017 by Hayden Barone MD at [facility] Left: Cranial [employer] 01/24/2020 [id number] / / [id number] Dev Clsr Aaron Duraseal Dura Pg Slnt Sys 5 Implanted:Qty: 1 on 11/11/2017 by Hayden Barone MD at [facility] Left: Cranial Integra [employer] Alex 10/25/2019 [id number] / / Procedures Procedure Name Priority Date/Time [...] Resulting Agency Comment [facility] [address] [facility] [id number] Hayden Finley MD LAB - CHEMISTRY [facility] INSURANCE BILL [address] [place] [address] from Last 3 Months or Most Recently Relevant to Health Maintenance Advance Directives * Full Code (Latest Code Status on File) Date Activated Date Inactivated Comments 11/14/2017 7:58 AM 11/21/2017 11:28 AM * Full Code Date Activated Date Inactivated Comments 11/11/2017 1:49 PM 11/13/2017 5:06 PM * Full Code Date Activated Date Inactivated Comments 10/12/2017 1:05 PM 10/16/2017 2:52 PM Care Teams Pull Tab Dealer Relationship Specialty Start Date End Date Leonides Mcneil MD [address] [address] PCP - General Family Medicine 01/14/17 William Peña [place] [phone] [phone] Residential Mortgage Manager/Oncologist Hematology and Oncology 06/07/21 Greta Aldana, CARE MANAGER-ELDER ASSISTANT [address] [address] Advance Practice Nurse Hematology and Oncology 06/07/21
--- OUTSIDE RECORDS SUMMARY | 2024-12-05 12:37 | XMS_ITS | Encounter Summary ---
Author Organization [facility] Health Address [address] [place] [place] [address] Care Team Providers Care Roofer Helper Name Role Phone Leonides Mcneil MD Primary Care Provider + William Peña MD Unavailable [phone] Greta Aldana Unavailable [phone] Encounter Details Date Type Department Care Team (Late st Contact Info) Description 11/18/2021 [facility] Outpatient Visit [facility] [id number] [place] [phone] [place]ña [place] [id number] [phone] Social History Tobacco Use Types Packs/Day Years Used Date Smoking Tobacco: Never Smokeless Tobacco: Never Alcohol Use Standard Drinks/Week Comments No 0 (1 standard drink = 0.6 oz pur e alcohol) Sex and Gender Information Value Date Recorded Sex Assigned at Male 12/06/2021 8:05 AM INVENTORY CONTROL CLERK Gender Identity Male 12/06/2021 8:05 AM INVENTORY CONTROL CLERK Sexual Orientation Straight 12/06/2021 8: 05 AM INVENTORY CONTROL CLERK documented as of this encounter Functional Status Functional Status Response Date of [...] person have difficulty concentrating/remembering/making decisions? No 11/12/2017 documented as of this encounter Plan of Treatment Upcoming Encounters Date Type Department Care Team (Late st Contact Info) Description 01/11/2025 11:40 AM CDT Office Visit [facility] [id number] [phone] [place] [address] [facility] [address] [phone] documented as of this encounter Visit Diagnoses Not on filedocumented in this encounter Care Teams Roofer Helper Relationship Specialty Start Date End Date Leonides Mcneil MD [address] [facility] [address] [place] [address] PCP - General Family Medicine 01/14/17 [place]ña [place] [id number] [phone] Pulling Unit Operator/Oncologist Hematology and Oncology 06/07/21 Greta Aldana, SECURITY ALARM TECHNICIAN-SUPERVISOR [employer] [address] [address] Advance Practice Nurse Hematology and Oncology 06/07/21 documented as of this encounter
--- OUTSIDE RECORDS SUMMARY | 2024-12-05 12:37 | XMS_ITS | Patient Health Summary ---
Author Organization [facility] Address [address] [place] [address] Care Team Providers Care Counter Maker Name Role Phone Leonides Mcneil MD Primary Care Provider + William Peña MD Unavailable [phone] Greta Aldana APRN-DEDE Unavailable Note from [facility],non-owned Affiliates and Associated Physician Practices is amultiple site organization consisting of ambulatory clinics and hospital sitesin [place], [place], [place] and [place]. This disclosure is being madepursuant to the Care Everywhere program and may not contain all information available regarding this patient. Last updated 18.[facility] Allergies * Glimepiride(Rash) -Medium Criticality * Amlodipine Base(Hepatic Injury) -High Criticality * Sulfamethoxazole W-Trimethoprim(Rash) -Medium Criticality * Prochlorperazine(Rash) -Medium Criticality Medications * Be aware that medications may not be up to date on this document. Alwaysverify current medications with the patient. * escitalopram (LEXAPRO) 20 MG tablet(Started 08/29/2019) TAKE 1 TABLET BY MOUTH ONCE DAILY 2 refills remaining * lisinopril (PRINIVIL; ZESTRIL) 20 MG tablet(Started 09/11/2021) Take 1 (one) tablet by mouth once daily * ondansetron (Zofran) 4 MG tablet Take 1 (one) tablet by mouth every 6 hours as needed for Nausea/Vomiting * Cetirizine HCl (ZYRTEC ALLERGY PO) * temozolomide (Temodar) 140 MG capsule(Started 07/08/2023) * lamoTRIgine (LaMICtal) 200 MG tablet(Started 09/03/2024) TAKE 1 AND 1/2 TABLETS BY MOUTH 2 TIMES DAILY Active Problems Problem Noted Date Diagnosed Date Word finding difficulty 06/04/2021 Hx of benign neoplasm of brain 06/04/2021 Depression 08/11/2018 CKD (chronic kidney disease) stage 3, GFR 30-59 ml/min 03/17/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 (FLUZONE; FLULAVAL; FLUARIX; AFLURIA QUADRIVALENT; 6MO+), 0.5 ML (IIV4)(Given 11/12/2017) Social History Tobacco Use Types Packs/Day Years Used Date Smoking Tobacco: Never Smokeless Tobacco: Never Alcohol Use Standard Drinks/Week Comments No 0 (1 standard drink = 0.6 oz pur e alcohol) PHQ-2 Answer Date Recorded PHQ2 TOTAL SCORE 0 12/18/2021 Sex and Gender Information Value Date Recorded Sex Assigned at Male 12/06/2021 8:05 AM GIS INSTRUCTOR Gender Identity Male 12/06/2021 8:05 AM GIS INSTRUCTOR Sexual Orientation Straight 12/06/2021 8: 05 AM GIS INSTRUCTOR Last Filed Vital Signs Vital Sign Reading Time Taken Comments Blood Pressure 150/86 12/18/2021 2:33 PM GIS INSTRUCTOR Pulse 71 12/18/2021 2:33 PM GIS INSTRUCTOR Temperature 36.2 C (97.1 F) 12/18/2021 2:33 PM GIS INSTRUCTOR Respiratory Rate 16 05/26/2022 2:18 PM CDT Oxygen Saturation 99% 12/18/2021 2:33 PM GIS INSTRUCTOR RA Inhaled Oxygen Concentration - - Weight 81.6 kg (180 lb) 01/13/2024 11:35 AM CDT Height 170.2 cm (5' 7 ) 01/13/2024 11:35 AM CDT Body Mass Index 28.19 01/13/2024 11:35 AM CDT Medical Devices Implanted Type Area Radiation Protection Engineer Device Identifier Shelf Expiration Date Model / Serial / Lot Plate Med Mdfc 2 Hl Strg 1.5mm Scr Bn Ti Implanted:Qty: 4 on 11/11/2017 by Hayden Barone MD at [facility] [employer] [id number] / / Demetrise Screw Cartridge 4.0 Implanted:Qty: 2 on 11/11/2017 by Hayden Barone MD at [facility] [id number] / / Description:8 screws used Graft Tissue Drgn + Bvn Clgn Mtrx 1x1in Implanted:Qty: 1 on 11/11/2017 by Hayden Barone MD at [facility] Left: Cranial [employer] 01/24/2020 [id number] / / [id number] Dev Clsr Aaron Duraseal Dura Pg Slnt Sys 5 Implanted:Qty: 1 on 11/11/2017 by Hayden Barone MD at [facility] Left: Cranial [employer] Alex 10/25/2019 [id number] / / Procedures * URINALYSIS MICROSCOPIC ONLY REFLEXED(Performed 04/11/2022) Performed for Seizures (HCC) * LAMOTRIGINE LEVEL(Performed 04/11/2022) Performed for Seizures (HCC) * VITAMIN B12 FOLATE PANEL(Performed 04/11/2022) Performed for Seizures (HCC) * AMMONIA(Performed 04/11/2022) Performed for Seizures (HCC) * URINALYSIS REFLEX MICROSCOPIC REFLEX CULTURE(Performed 04/11/2022) Performed for Seizures (HCC) * COMPREHENSIVE METABOLIC PANEL(Performed 04/11/2022) Performed for Seizures (HCC) * TSH REFLEX FREE T4(Performed 04/11/2022) Performed for Seizures (HCC) * LEVETIRACETAM LEVEL(Performed 04/11/2022) Performed for Seizures (HCC) * MRI BRAIN WWO CONTRAST(Performed 11/27/2021) Performed for Anaplastic astrocytoma (HCC) * CREATININE - POCT INTERFACED(Performed 11/27/2021) * MRI BRAIN WWO CONTRAST(Performed 05/30/2021) Performed for Anaplastic astrocytoma (HCC) * CREATININE - POCT INTERFACED(Performed 05/30/2021) * LAMOTRIGINE LEVEL(Performed 02/06/2021) Performed for Seizures (HCC) * MRI BRAIN WWO CONTRAST(Performed 11/22/2020) Performed for Anaplastic astrocytoma (HCC) * CREATININE - POCT INTERFACED(Performed 11/22/2020) * MRI BRAIN WWO CONTRAST(Performed 05/18/2020) Performed for Anaplastic astrocytoma (HCC) * CREATININE - POCT INTERFACED(Performed 05/18/2020) * MRI BRAIN WWO CONTRAST(Performed 10/17/2019) Performed for Anaplastic astrocytoma (HCC) * CREATININE BLOOD - POINT OF CARE (IP)(Performed 10/17/2019) Performed for Anaplastic astrocytoma (HCC) * MRI BRAIN WWO CONTRAST(Performed 04/11/2019) Performed for Anaplastic astrocytoma (HCC) * ENDOTRACHEAL TUBE NOTE(Performed 12/07/2018) * APHERESIS/TRANSFUSION ORDER(Performed 11/29/2018) * PATHOLOGY TISSUE EXAM (STL)(Performed 11/26/2018) Performed for Diagnosis unknown * CRANIOPLASTY(Performed 11/26/2018) * EKG 12-LEAD(Performed 11/22/2018) Performed for Preop examination * TYPE + SCREEN PANEL(Performed 11/22/2018) Performed for Preop examination * PT PTT PANEL(Performed 11/22/2018) Performed for Preop examination * URINALYSIS REFLEX MICROSCOPIC REFLEX CULTURE(Performed 11/22/2018) Performed for Preop examination * CBC W AUTO DIFFERENTIAL(Performed 11/22/2018) Performed for Preop examination * BASIC METABOLIC PANEL (CALCIUM TOTAL)(Performed 11/22/2018) Performed for Preop examination * CULTURE MSSA/MRSA(Performed 11/22/2018) Performed for Preop examination * MRI BRAIN WWO CONTRAST(Performed 11/08/2018) Performed for Anaplastic astrocytoma (HCC) * CREATININE BLOOD - POINT OF CARE (IP)(Performed 11/08/2018) Performed for Anaplastic astrocytoma (HCC) * LAMOTRIGINE LEVEL(Performed 08/27/2018) Performed for Seizures (HCC) * MRI BRAIN WWO CONTRAST(Performed 08/09/2018) Performed for Anaplastic astrocytoma (HCC) * CREATININE BLOOD - POINT OF CARE (IP)(Performed 08/09/2018) Performed for Anaplastic astrocytoma (HCC) * MRI BRAIN WWO CONTRAST(Performed 05/10/2018) Performed for Anaplastic astrocytoma (HCC) * CBC W AUTO DIFFERENTIAL (CANCER CARE)(Performed 04/27/2018) Performed for Anaplastic astrocytoma (HCC) * COMPREHENSIVE METABOLIC PANEL(Performed 04/27/2018) Performed for Anaplastic astrocytoma (HCC) * CBC W AUTO DIFFERENTIAL (CANCER CARE)(Performed 03/17/2018) Performed for Anaplastic astrocytoma (HCC) * COMPREHENSIVE METABOLIC PANEL(Performed 03/17/2018) Performed for Anaplastic astrocytoma (HCC) * RENAL FUNCTION PANEL(Performed 03/02/2018) Performed for Anaplastic astrocytoma (HCC), Abnormal liver function tests * US RETROPERITONEAL COMPLETE(Performed 02/22/2018) Performed for Creatinine elevation * URINALYSIS MICROSCOPIC ONLY REFLEXED(Performed 02/22/2018) Performed for Anaplastic astrocytoma (HCC), Seizures (HCC), Abnormal liver function tests * URINALYSIS REFLEX MICROSCOPIC REFLEX CULTURE(Performed 02/22/2018) Performed for Anaplastic astrocytoma (HCC), Seizures (HCC), Abnormal liver function tests * RENAL FUNCTION PANEL(Performed 02/17/2018) Performed for Anaplastic astrocytoma (HCC) * CBC W AUTO DIFFERENTIAL (CANCER CARE)(Performed 02/10/2018) Performed for Anaplastic astrocytoma (HCC) * COMPREHENSIVE METABOLIC PANEL(Performed 02/10/2018) Performed for Anaplastic astrocytoma (HCC) * MRI BRAIN WWO CONTRAST(Performed 02/08/2018) Performed for S/P craniotomy, History of craniotomy, Brain tumor, recurrent (HCC) * COMPREHENSIVE METABOLIC PANEL(Performed 01/04/2018) Performed for Anaplastic astrocytoma (HCC) * CBC W AUTO DIFFERENTIAL (CANCER CARE)(Performed 01/04/2018) Performed for Anaplastic astrocytoma (HCC) * COMPREHENSIVE METABOLIC PANEL(Performed 12/14/2017) Performed for Anaplastic astrocytoma (HCC) * CBC W AUTO DIFFERENTIAL (CANCER CARE)(Performed 12/14/2017) Performed for Anaplastic astrocytoma (HCC) * COMPREHENSIVE METABOLIC PANEL(Performed 11/30/2017) Performed for Anaplastic astrocytoma (HCC), Abnormal liver function tests * CT ABDOMEN WWO PELVIS W CONT(Performed 11/26/2017) Performed for Glioma (HCC), Abnormal liver function tests * CREATININE BLOOD - POINT OF CARE (IP)(Performed 11/26/2017) Performed for Abnormal liver function tests * HEPATIC FUNCTION PANEL(Performed 11/24/2017) Performed for Elevated liver enzymes * CBC W/O DIFFERENTIAL(Performed 11/20/2017) * BASIC METABOLIC PANEL (CALCIUM TOTAL)(Performed 11/20/2017) * CBC W AUTO DIFFERENTIAL (CANCER CARE)(Performed 11/19/2017) Performed for Anaplastic astrocytoma (HCC), Seizures (HCC) * COMPREHENSIVE METABOLIC PANEL(Performed 11/19/2017) Performed for Anaplastic astrocytoma (HCC), Seizures (HCC) * CARDIAC RHYTHM STRIP ORDER(Performed 11/16/2017) * APHERESIS/TRANSFUSION ORDER(Performed 11/16/2017) * BASIC METABOLIC PANEL (CALCIUM TOTAL)(Performed 11/14/2017) * CBC W AUTO DIFFERENTIAL(Performed 11/14/2017) * BASIC METABOLIC PANEL (CALCIUM TOTAL)(Performed 11/13/2017) * CT HEAD WO CONTRAST(Performed 11/12/2017) Performed for Brain tumor (HCC) * CBC W AUTO DIFFERENTIAL(Performed 11/12/2017) * RENAL FUNCTION PANEL(Performed 11/12/2017) * RENAL FUNCTION PANEL(Performed 11/12/2017) * CULTURE VRE(Performed 11/11/2017) * CT HEAD WO CONTRAST(Performed 11/11/2017) Performed for Brain tumor (HCC) * LAB MISC TEST (NOT BLOOD)(Performed 11/11/2017) * LAB MISC TEST (NOT BLOOD)(Performed 11/11/2017) * PATHOLOGY TISSUE EXAM (STL)(Performed 11/11/2017) Performed for Diagnosis unknown * CRANIECTOMY/CRANIOTOMY RESECTION BRAIN TUMOR WITH STEALTH(Performed 11/11/2017) * BASIC METABOLIC PANEL (CALCIUM TOTAL)(Performed 11/11/2017) * BLOOD TYPE VERIFICATION(Performed 11/11/2017) * URINALYSIS REFLEX MICROSCOPIC REFLEX CULTURE(Performed 11/11/2017) * EKG 12-LEAD(Performed 11/09/2017) Performed for Preop examination * TYPE + SCREEN PANEL(Performed 11/09/2017) Performed for Preop examination * PT PTT PANEL(Performed 11/09/2017) Performed for Preop examination * BASIC METABOLIC PANEL (CALCIUM TOTAL)(Performed 11/09/2017) Performed for Preop examination * CBC W AUTO DIFFERENTIAL(Performed 11/09/2017) Performed for Preop examination * CULTURE MSSA/MRSA(Performed 11/09/2017) Performed for Preop examination * CARDIAC RHYTHM STRIP ORDER(Performed 10/21/2017) * COMPREHENSIVE METABOLIC PANEL(Performed 10/12/2017) * CBC W AUTO DIFFERENTIAL(Performed 10/12/2017) * MRI BRAIN FUNCTIONAL(Performed 10/08/2017) Performed for Benign neoplasm of meninges (HCC), History of craniotomy * IMAGING/RADIOLOGY/XRAY RESULTS ORDER(Performed 10/05/2017) * LAMOTRIGINE LEVEL(Performed 02/27/2017) Performed for 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, intractable, with status epilepticus (HCC) * LEVETIRACETAM LEVEL(Performed 02/27/2017) Performed for 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, intractable, with status epilepticus (HCC) * ERYTHROCYTE SEDIMENTATION RATE(Performed 01/14/2017) Performed for Partial epilepsy, with intractable epilepsy, pharmacoresistant (HCC) * COMPREHENSIVE METABOLIC PANEL(Performed 01/14/2017) Performed for Partial epilepsy, with intractable epilepsy, pharmacoresistant (HCC) * CBC W AUTO DIFFERENTIAL(Performed 01/14/2017) Performed for Partial epilepsy, with intractable epilepsy, pharmacoresistant (HCC) * IMAGING/RADIOLOGY/XRAY RESULTS ORDER(Performed 06/10/2014) * BRAIN BIOPSY(Performed 10/27/2001) Results * URINALYSIS MICROSCOPIC ONLY REFLEXED (04/11/2022 3:33 PM CDT) Only the most recent of2 resultswithin the time period is included. WBC UA 0-5 0 - 5 /hpf [facility] INSURANCE BILL RBC UA None seen 0 - 2 /hpf [facility] INSURANCE BILL Epithelial Cells (non renal) None seen 0 - 10 /hpf [facility] INSURANCE BILL Epithelial Cells (renal) NOT NEEDED [facility] INSURANCE BILL Comment:Ancillary determined the test is not needed. Casts ua None seen None seen /lpf [facility] INSURANCE BILL Casts UA NOT NEEDED [facility] INSURANCE BILL Comment:Ancillary determined the test is not needed. Crystals UA NOT NEEDED [facility] INSURANCE BILL Comment:Ancillary determined the test is not needed. Crystals UA NOT NEEDED [facility] INSURANCE BILL Comment:Ancillary determined the test is not needed. Mucus UA NOT NEEDED [facility] INSURANCE BILL Comment:Ancillary determined the test is not needed. Bacteria UA None seen None seen/Few [facility] INSURANCE BILL Yeast UA NOT NEEDED [facility] INSURANCE BILL Comment:Ancillary determined the test is not needed. Trichomonas UA NOT NEEDED [facility] INSURANCE BILL Comment:Ancillary determined the test is not needed. Comment Urine NOT NEEDED [facility] INSURANCE BILL Comment:Ancillary determined the test is not needed. 04/11/2022 3:33 PM CDT 04/11/2022 Narrative Resulting Agency Comment Lab Testing performed at: [facility] [address] [id number] Hayden Finley MD LAB - URINALYSIS ORD ERABLES Performing Organization Address [facility] de Phone Number [facility] INSURANCE BILL [address] [place] [address] * URINALYSIS REFLEX MICROSCOPIC REFLEX CULTURE (04/11/2022 3:33 PM CDT) Only the most recent of4 resultswithin the time period is included. Specific [place] UA 1.016 1.005 - 1.030 [facility] INSURANCE BILL pH UA 6.0 5.0 - 7.5 [facility] INSURANCE BILL Color UA Yellow Yellow [facility] INSURANCE BILL Appearance Clear Clear [facility] INSURANCE BILL Leukocyte UA Negative Negative [facility] INSURANCE BILL Protein UA Trace Negative/Tra ce [facility] INSURANCE BILL Glucose UA Negative Negative [facility] INSURANCE BILL Ketone UA Negative Negative [facility] INSURANCE BILL Occult Blood Urine Negative Negative [facility] INSURANCE BILL Bilirubin UA Negative Negative [facility] INSURANCE BILL Urobilinogen 0.2 0.2 - 1.0 mg/dL [facility] INSURANCE BILL Nitrite UA Negative Negative [facility] INSURANCE BILL Microscopic Examination Urine [facility] INSURANCE BILL Comment:Microscopic follows if indicated. Microscopic Examination Urine See below: [facility] INSURANCE BILL Comment:Microscopic was gila cated and was performed. Urinalysis Reflex [facility] INSURANCE BILL Comment:This specimen will n ot reflex to a Urine Culture. Urine URINE SPECIMEN OBTAINED BY CLEAN CATCH PROCEDURE / Unknown 04/11/2022 3:33 PM CDT 04/11/2022 Narrative Resulting Agency Comment Lab Testing performed at: [facility] [address] [facility] [id number] Hayden Finley MD LAB - URINALYSIS ORD ERABLES Performing Organization Address City/[facility]/ZIP Co de Phone Number [facility] INSURANCE BILL [address] [place] [address] * LAMOTRIGINE LEVEL (04/11/2022 3:33 PM CDT) Only the most recent of4 resultswithin the time period is included. Pathologist [facility] Lamotrigine 7.9 2.0 - 20.0 ug/mL [facility] INSURANCE BILL Comment:Detection Limit = 1. 0 Blood BLOOD SPECIMEN / Unknown 04/11/2022 3:33 PM CDT 04/11/2022 Narrative Resulting Agency Comment Lab Testing performed at: [facility] [address] [id number] Hayden Finley MD LAB - THERAPEUTIC DR GOMEZ MONITORING ORDERABLES [facility] INSURANCE BILL [address] [place] [address] * (ABNORMAL) COMPREHENSIVE METABOLIC PANEL (04/11/2022 3:33 PM CDT) Only the most recent of10 resultswithin the time period is included. Pathologist [facility] Glucose 84 65 - 99 mg/dL [facility] [...] Resulting Agency Comment [facility] performed [facility]: [facility] [address] [facility] [id number] Hayden Finley MD LAB - CHEMISTRY ANNA HELM [facility] INSURANCE BILL [address] [place] [address] * VITAMIN B12 FOLATE PANEL (04/11/2022 3:33 PM CDT) Vitamin B12 290 232 - 1,245 pg/mL [facility] INSURANCE BILL Folate 5.4 >3.0 ng/mL [facility] INSURANCE BILL Comment: A serum folate concentration of less than 3.1 ng/mL is considered to represent clinical deficiency. Blood BLOOD SPECIMEN / Unknown 04/11/2022 3:33 PM CDT 04/11/2022 Narrative Resulting Agency Comment [facility] [address] [facility] [id number] Hayden Finley MD LAB - CHEMISTRY ANNA HELM [facility] INSURANCE BILL [address] [place] [address] * (ABNORMAL) AMMONIA (04/11/2022 3:33 PM CDT) Ammonia 35(L) 40 - 200 ug/dL [facility] INSURANCE BILL Blood BLOOD SPECIMEN / Unknown 04/11/2022 3:33 PM CDT 04/11/2022 Narrative Resulting Agency Comment Lab Testing performed at: [facility] [address] [facility] [id number] Hayden Finley MD LAB - CHEMISTRY ANNA HELM [facility] INSURANCE BILL [address] [place] [address] * TSH REFLEX FREE T4 (04/11/2022 3:32 PM CDT) TSH 2.700 0.450 - 4.500 uIU/mL [facility] INSURANCE BILL Blood BLOOD SPECIMEN / Unknown 04/11/2022 3:32 PM CDT 04/11/2022 Narrative Resulting Agency Comment Lab Testing performed at: [facility] [address] [facility] [phone] Hayden Finley MD LAB - CHEMISTRY ORDE RABAXEL Performing Organization Address [facility] Co de Phone Number [facility] [address] [place] [address] * (ABNORMAL) LEVETIRACETAM LEVEL (04/11/2022 3:32 PM CDT) Only the most recent of2 resultswithin the time period is included. Levetiracetam <1.0(L) 10.0 - 40.0 ug/mL [facility] INSURANCE BILL Blood BLOOD SPECIMEN / Unknown 04/11/2022 3:32 PM CDT 04/11/2022 Narrative [facility] INSURANCE BILL - 04/15/2022 3:08 PM CDT Test(s) [id number], S was developed and its performance characteristics determined by [employer]. It has not been cleared or approved by the Food and Drug Administration. Resulting Agency Comment Lab Testing performed at: [address] [id number] Hayden Finley MD LAB - THERAPEUTIC DR GOMEZ MONITORING ORDERABLES Performing Organization Address [facility]/ZIP Co de Phone Number [facility] [address] [place] [address] * MRI BRAIN WWO CONTRAST (11/27/2021 6:17 PM GIS INSTRUCTOR) Only the most recent of10 resultswithin the time period is included. Anatomical Region Laterality Modality Head Magnetic Resonan ce 11/28/2021 11:0 3 AM GIS INSTRUCTOR Narrative 11/28/2021 11:41 AM GIS INSTRUCTOR Examination: MRI brain, with and without contrast. Indication for examination: Anaplastic astrocytoma left temporal lobe. Previous surgery. Follow-up. Precontrast T1 and T2-weighted images with contrast-enhanced T1-weighted images of the brain are obtained. 18 cc Dotarem contrast were used. Comparison is made with prior studies, latest of which is May 30, 2021. There is increased confluent soft tissue cortical thickening left anterior perisylvian region as compared with the previous examination. This demonstrates minimal low level internal enhancement. Findings are consistent with tumor recurrence in this area, for which appropriate follow-up is required. No midline shift or high-grade mass effect is observed. Parenchymal pattern is otherwise grossly unchanged. No other mass lesion identified. Ventricles are unchanged in configuration. No new blood product deposition is observed. 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 *Reading Radiologist: Pj Zaamrripa on 11/28/2021 at 11:41 AM Procedure Note Pj Zamarripa MD - 11/28/2021 Examination: MRI brain, with and without contrast. Indication for examination: Anaplastic astrocytoma left temporal lobe. Previous surgery. Follow-up. Precontrast T1 and T2-weighted images with contrast-enhanced T1-weighted images of the brain are obtained. 18 cc Dotarem contrast were used. Comparison is made with prior studies, latest of which is May 30, 2021. There is increased confluent soft tissue cortical thickening left anterior perisylvian region as compared with the previous examination. This demonstrates minimal low level internal enhancement. Findings are consistent with tumor recurrence in this area, for which appropriate follow-up is required. No midline shift or high-grade mass effect is observed. Parenchymal pattern is otherwise grossly unchanged. No other mass lesion identified. Ventricles are unchanged in configuration. No new blood product deposition is observed. 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 *Reading Radiologist: Pj Zamarripa on 11/28/2021 at 11:41 AM William Peña MD MR ORDERABLES * (ABNORMAL) CREATININE - POCT INTERFACED (11/27/2021 5:34 PM GIS INSTRUCTOR) Only the most recent of4 resultswithin the time period is included. Creatinine POCT 1.41(H) 0.70 - 1.20 mg/dL 11/27/2021 6:12 PM GIS INSTRUCTOR [facility] Blood BLOOD SPECIMEN / Unknown 11/27/2021 5:34 PM GIS INSTRUCTOR 11/27/2021 6:12 PM GIS INSTRUCTOR William Peña MD LAB - POINT OF CARE ORDERABLES Performing Organization Address [facility] de Phone Number [facility] [address] [place] [address] * (ABNORMAL) CREATININE BLOOD - POINT OF CARE (IP) (10/17/2019 3:19 PM GIS INSTRUCTOR) Only the most recent of4 resultswithin the time period is included. Creatinine POCT 1.77(A) 0.7 - 1.2 mg/dL [facility] QC Verified Yes Yes [facility] T [facility] Blood BLOOD SPECIMEN / Unknown 10/17/2019 3:19 PM GIS INSTRUCTOR Chinedu Molina MD LAB - POINT OF CARE ORDERABLES Performing Organization Address [facility] de Phone Number [facility] [address] [place], [place] [id number] [place] [address] * ENDOTRACHEAL TUBE NOTE (12/07/2018 6:25 AM GIS INSTRUCTOR) Narrative Bisi Quevedo, DO - 12/07/2018 6:25 AM GIS INSTRUCTOR Lou Emerson, [employer] OPERATOR-CHEMISTRY LABORATORY TECHNICIAN 11/26/2018 7:40 AM Endotracheal Tube Placement: Patient Location: OR. Intubation Event Date/Time: 11/26/2018 7:31 AM Procedure: intubation (70995). Procedure Section: Sedation: under general anesthesia. Indications for Airway Management: anesthesia Pretreatment: 100% O2. Induction: standard IV Patient Position: sniffing Mask Ventilation: easy. Blade Type: Zachary Blade Size: 4 Laryngoscopy View: grade 1 (full cords) Intubation Adjuncts: stylet Device: endotracheal tube Placement: oral Tube type: cuff - inflated Tube Size (MM): 8 Depth of Insertion (CM): 22 Measured From: lips Cuff volume (mL): 6 Cuff Inflated With: air Number of Attempts: 1. Placement Verified By: direct visualization, bilateral breath sounds, chest auscultation and CO2 monitor Tube secured with: adhesive tape. Difficult Airway? No. Procedure Start Time: 11/26/2018 7:31 AM. Staff Section Anesthesia Provider: LOU EMERSON, Performed the procedure Wally Cheney DO GENERAL ANESTHESIA O RDERABLES * APHERESIS/TRANSFUSION ORDER (11/29/2018 8:54 PM GIS INSTRUCTOR) Only the most recent of2 resultswithin the time period is included. Narrative 11/29/2018 8:54 PM GIS INSTRUCTOR Ordered by an unspecified provider. Scanned Document NURSING - VITAL SIGN S AND ASSESSMENT * GROSS + MICRO EXAM (STL) (11/26/2018 7:51 AM GIS INSTRUCTOR) Only the most recent of2 resultswithin the time period is included. Case Report Surgical Pathology Report Case: [id number] Authorizing Provider: Hayden Barone MD Collected: 11/26/2018 07:51 AM Ordering Location: [facility] Received: 11/26/2018 08:41 AM Pathologist: Alexi Tran MD Specimen: Mass, right parietal skull mass 12/08/2018 9:35 AM GIS INSTRUCTOR [facility] Final Diagnosis 1. 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 The mass is present 0.1 cm from the peripheral border. The peripheral border is inked blue and the deep aspect is inked black. The deep aspect consists of a smooth fascial plane. Sections of the mass show a gritty white-yellow chalky cut surface. The mass is present 0.2 cm from the closest black-inked deep margin. Manager Of Investigations sections are submitted as follows: A1 - tips submitted en face A2 and A3 - Mass closest to black-inked deep margin and blue-inked peripheral borders A4 and A5 - Contiguous sections including mass closest to black-inked deep margin and blue-inked peripheral borders A6 and A7 - Contiguous sections including mass close to black-inked deep margin and blue-inked peripheral borders. 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 There is a considerable inflammatory response in the adjacent stroma with foreign body giant cells. The tumor appears to be erode the surface focally, but it seems well circumscribed intradermally. There is fairly brisk mitotic activity but no significant cytologic atypia. 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 A databases software consultant concurs (see separate report from Cutaneous Pathology). The lesion is excised. AB/scs 12/08/2018 9:35 AM [facility] Disclaimer All histochemical and/or immunohistochemical results are interpreted with controls that demonstrate appropriate staining reactions before reporting results. Note on use of immunocytochemistry reagents: This test was developed and its performance characteristic determined by [facility], Department of Laboratory Medicine. It has not been cleared or approved by the U.S. Food and Drug Administration (FDA). The FDA has determined that such clearance or approval is not necessary. The test is used for clinical purpose. It should not be regarded as investigational or for research. This laboratory is certified to perform high complexity testing. 12/08/2018 9:35 AM [facility] Embedded Images 12/08/2018 9:35 AM [facility] Pathology/Cytolo gy MASS / Unknown 11/26/2018 7:51 AM GIS INSTRUCTOR 11/26/2018 8:41 AM GIS INSTRUCTOR Hayden Barone MD LAB - PATHOLOGY /CYTOLOGY ORDERABLES [facility] [address] [place] [address] * EKG 12-LEAD (11/22/2018 4:09 PM GIS INSTRUCTOR) Only the most recent of2 resultswithin the time period is included. Ventricular Rate 70 BPM [facility] Atrial Rate 70 BPM [facility] P-R Interval 158 ms [facility] QRS Duration ms 82 ms [facility] Q-T Interval ms 388 ms [facility] QTC Calculation (Bezet) 419 ms [facility] Calculated P Jansen 56 degrees [facility] MUSE Calculated R Jansen 17 degrees [facility] M[facility] Calculated T Jansen 19 degrees [facility] M[facility] Interpretation EKG Normal sinus rhythm Normal ECG When compared with ECG of 09-NOV-2017 09:05, No significant change was found Confirmed by DASIA WOMACK MD ([id number]) on 11/23/2018 9:19:31 AM PSYCHIATRIC MUSE 11/22/2018 4:09 PM GIS INSTRUCTOR 11/23/2018 9:19 AM GIS INSTRUCTOR Hayden Barone MD ECG ORDERABLES Performing Organization Address City/[facility] Co de Phone Number PSYCHIATRIC MUSE * CULTURE MSSA/MRSA (11/22/2018 3:33 PM GIS INSTRUCTOR) Only the most recent of2 resultswithin the time period is included. Pathologist [facility] Culture Negative for Staphylococcus aureus (MRSA/MSSA) SARAHI 11/24/2018 10:45 AM [facility] MICROBIOLOGY Microbiology SPECIMEN FROM NASAL FOSSAE / Unknown Collection / Unknown 11/22/2018 3:33 PM GIS INSTRUCTOR 11/22/2018 4:01 PM GIS INSTRUCTOR Hayden Barone MD LAB - MICROBIOL OGY ORDERABLES [facility] MICROBIOLOGY [address] [place] [address] [phone] * TYPE + SCREEN PANEL (11/22/2018 3:33 PM GIS INSTRUCTOR) Only the most recent of2 resultswithin the time period is included. ABO B 11/22/2018 6:25 PM GIS INSTRUCTOR [facility] BLOOD BANK Rh Type Positive 11/22/2018 6:25 PM GIS INSTRUCTOR [facility] Comment:History checked. Antibody Screen Negative 11/22/2018 6:25 PM GIS INSTRUCTOR [facility] BLOOD BANK Blood Bank BLOOD SPECIMEN / Unknown Venipuncture / Unknown 11/22/2018 3:33 PM GIS INSTRUCTOR 11/22/2018 4:01 PM GIS INSTRUCTOR Hayden Barone MD LAB - BLOOD BAN K ORDERABLES Performing Organization Address [facility] Co de Phone Number PSYCHIATRIC BLOOD BANK [address] * PT PTT PANEL (11/22/2018 3:33 PM GIS INSTRUCTOR) Only the most recent of2 resultswithin the time period is included. PT 9.9 9.5 - 11.6 sec 11/22/2018 4:15 PM GIS INSTRUCTOR [facility] INR 0.9 0.9 - 1.1 11/22/2018 4:15 PM GIS INSTRUCTOR [facility] PTT 23.8 21.0 - 32.0 sec 11/22/2018 4:15 PM GIS INSTRUCTOR [facility] Blood BLOOD SPECIMEN / Unknown Venipuncture / Unknown 11/22/2018 3:33 PM GIS INSTRUCTOR 11/22/2018 4:01 PM GIS INSTRUCTOR Narrative PSYCHIATRIC LABORATORY - 11/22/2018 4:15 PM GIS INSTRUCTOR Conventional Warfarin Anticoagulant Therapy: INR Reference Range: 2.0-3.0 Intensive Warfarin Anticoagulant Therapy: INR Reference Range: 2.5-3.5 Heparin Therapeutic Range for PTT: 47.7 - 68.6 seconds. Hayden Barone MD LAB - COAGULATI ON ORDERABLES Performing Organization Address [facility] de Phone Number PSYCHIATRIC LABORATORY [phone] [place] [address] * (ABNORMAL) CBC W AUTO DIFFERENTIAL (11/22/2018 3:33 PM GIS INSTRUCTOR) Only the most recent of6 resultswithin the time period is included. WBC 6.2 4.4 - 10.7 x10E9/L 11/22/2018 4:05 PM GIS INSTRUCTOR [facility] WBC Corrected x10E9/L 11/22/2018 4:05 PM GIS INSTRUCTOR [facility] RBC 5.27 3.80 - 5.40 x10E12/L 11/22/2018 4:05 PM GIS INSTRUCTOR [facility] Hemoglobin 15.5 12.0 - 17.6 gm/dL 11/22/2018 4:05 PM [facility] Hematocrit 46.8 35.2 - 51.7 % 11/22/2018 4:05 PM [facility] MCV 88.8 80.7 - 98.3 fl 11/22/2018 4:05 PM [facility] MCH 29.4 26.7 - 34.0 pg 11/22/2018 4:05 PM [facility] MCHC 33.1 30.8 - 35.9 gm/dL 11/22/2018 4:05 PM [facility] Platelet Count 165 153 - 416 x10E9/L 11/22/2018 4:05 PM [facility] RDW-CV 13.4 12.1 - 14.9 % 11/22/2018 4:05 PM [facility] MPV 10.3 9.4 - 12.9 fl 11/22/2018 4:05 PM [facility] Neutrophils % 63.2 44.0 - 73.0 % 11/22/2018 4:05 PM [facility] Lymphocytes % 22.0 20.0 - 43.0 % 11/22/2018 4:05 PM [facility] Monocytes % 10.3 5.0 - 13.0 % 11/22/2018 4:05 PM [facility] Eosinophils % 2.4 0.0 - 6.0 % 11/22/2018 4:05 PM [facility] Basophils % 1.0 0.0 - 2.0 % 11/22/2018 4:05 PM [facility] Immature Granulocytes 1.1(H) 0 - 1 % 11/22/2018 4:05 PM [facility] Neutrophil Absolute 3.91 2.01 - 7.14 x10E9/L 11/22/2018 4:05 PM [facility] Lymphocytes Absolute 1.36 1.07 - 3.94 x10E9/L 11/22/2018 4:05 PM [facility] Monocytes Absolute 0.64 0.26 - 1.07 x10E9/L 11/22/2018 4:05 PM [facility] Eosinophils Absolute 0.15 0 - 0.47 x10E9/L 11/22/2018 4:05 PM [facility] Basophils Absolute 0.06 0 - 0.08 x10E9/L 11/22/2018 4:05 PM [facility] Immature Granulocytes Absolute 0.07(H) 0.00 - 0.06 x10E9/L 11/22/2018 4:05 PM [facility] nRBC Auto 0 /100 WBC 11/22/2018 4:05 PM [facility] Blood BLOOD SPECIMEN / Unknown Venipuncture / Unknown 11/22/2018 3:33 PM GIS INSTRUCTOR 11/22/2018 4:01 PM GIS INSTRUCTOR Hayden Barone MD LAB - HEMATOLOG Y ORDERABLES [facility] [address] [place] [address] * (ABNORMAL) BASIC METABOLIC PANEL (CALCIUM TOTAL) (11/22/2018 3:33 PM [facility]) Only the most recent of6 resultswithin the time period is included. Glucose 82 74 - 106 mg/dL 11/22/2018 4:18 PM [facility] Sodium 138 136 - 145 mmol/L 11/22/2018 4:18 PM [facility] Potassium 4.1 3.5 - 5.1 mmol/L 11/22/2018 4:18 PM [facility] Chloride 103 98 - 107 mmol/L 11/22/2018 4:18 PM [facility] CO2 34(H) 22 - 31 mmol/L 11/22/2018 4:18 PM [facility] Calcium 9.3 8.5 - 10.1 mg/dL 11/22/2018 4:18 PM [facility] Anion Gap 1(L) 8 - 16 mmol/L 11/22/2018 4:18 PM [facility] BUN 14 7 - 21 mg/dL 11/22/2018 4:18 PM [facility] Creatinine 1.50(H) 0.50 - 1.30 mg/dL 11/22/2018 4:18 PM [facility] eGFR by MDRD 48(L) >60 mL/min/1.7 3m2 11/22/2018 4:18 PM [facility] eGFR by MDRD 58(L) >60 mL/min/1.7 3m2 11/22/2018 4:18 PM [facility] Blood BLOOD SPECIMEN / Unknown Venipuncture / Unknown 11/22/2018 3:33 PM GIS INSTRUCTOR 11/22/2018 4:01 PM GIS INSTRUCTOR Hayden Barone MD LAB - CHEMISTRY ORDERABLES [facility] [address] [place] [address] * (ABNORMAL) CBC W AUTO DIFFERENTIAL (CANCER CARE) (04/27/2018 11:15 AM CDT) Only the most recent of6 resultswithin the time period is included. WBC 5.7 4.4 - 10.7 x10E9/L 04/27/2018 11:31 AM CDT [facility] Neutrophils % 64.9 44.0 - 73.0 % 04/27/2018 11:31 AM CDT [facility] Lymphocytes % 20.5 20.0 - 43.0 % 04/27/2018 11:31 AM CDT [facility] Monocytes % 11.7 5.0 - 13.0 % 04/27/2018 11:31 AM CDT [facility] Eosinophils % 2.5 0.0 - 6.0 % 04/27/2018 11:31 AM CDT [facility] Basophils % 0.4 0.0 - 2.0 % 04/27/2018 11:31 AM CDT [facility] Neutrophil Absolute 3.68 2.01 - 7.14 x10E9/L 04/27/2018 11:31 AM CDT [facility] Lymphocytes Absolute 1.16 1.07 - 3.94 x10E9/L 04/27/2018 11:31 AM CDT [facility] Monocytes Absolute 0.66 0.26 - 1.07 x10E9/L 04/27/2018 11:31 AM CDT [facility] Eosinophils Absolute 0.14 0 - 0.47 x10E9/L 04/27/2018 11:31 AM CDT [facility] Basophils Absolute 0.02 0 - 0.08 x10E9/L 04/27/2018 11:31 AM CDT [facility] RBC 5.47(H) 3.80 - 5.40 x10E12/L 04/27/2018 11:31 AM CDT [facility] Hemoglobin 15.8 12.0 - 17.6 gm/dL 04/27/2018 11:31 AM CDT [facility] Hematocrit 45.2 35.2 - 51.7 % 04/27/2018 11:31 AM CDT [facility] MCV 82.6 80.7 - 98.3 fl 04/27/2018 11:31 AM CDT [facility] MCH 28.9 26.7 - 34.0 pg 04/27/2018 11:31 AM CDT [facility] MCHC 35.0 30.8 - 35.9 gm/dL 04/27/2018 11:31 AM CDT [facility] RDW-CV 13.7 12.1 - 14.9 % 04/27/2018 11:31 AM CDT [facility] Platelet Count 156 153 - 416 x10E9/L 04/27/2018 11:31 AM CDT [facility] MPV 9.9 9.4 - 12.9 fl 04/27/2018 11:31 AM CDT [facility] Blood BLOOD SPECIMEN / Unknown 04/27/2018 11:15 AM CDT 04/27/2018 11:15 AM CDT Chinedu Molina MD LAB - HEMATOLOGY ORD ERABLES [facility] [id number] [address] * (ABNORMAL) RENAL FUNCTION PANEL (03/02/2018 1:56 PM CDT) Only the most recent of4 resultswithin the time period is included. Glucose 97 65 - 99 mg/dL [facility] ACCOUNT BILL BUN 15 6 - 24 mg/dL [facility] ACCOUNT BILL Creatinine 1.61(H) 0.76 - 1.27 mg/dL [facility] ACCOUNT BILL eGFR by MDRD 47(L) >59 mL/min/1.7 3m2 [facility] ACCOUNT BILL eGFR by MDRD 54(L) >59 mL/min/1.7 3m2 [facility] ACCOUNT BILL BUN/Creatinine Ratio 9 9 - 20 [facility] ACCOUNT BILL Sodium 143 134 - 144 mmol/L [facility] ACCOUNT BILL Potassium 4.4 3.5 - 5.2 mmol/L [facility] ACCOUNT BILL Chloride 102 96 - 106 mmol/L [facility] ACCOUNT BILL CO2 24 18 - 29 mmol/L [facility] ACCOUNT BILL Calcium 10.0 8.7 - 10.2 mg/dL [facility] ACCOUNT BILL Phosphorus 2.9 2.5 - 4.5 mg/dL [facility] ACCOUNT BILL Albumin 4.4 3.5 - 5.5 g/dL [facility] ACCOUNT BILL Blood BLOOD SPECIMEN / Unknown 03/02/2018 1:56 PM CDT 03/02/2018 Narrative Resulting Agency Comment [facility] [address] [facility] [phone] Chinedu Molina MD LAB - CHEMISTRY ANNA HELM [facility] Organization Address City/State/ZIP Co de Phone Number [facility] ACCOUNT BILL [address] [place] [address] * US RETROPERITONEAL COMPLETE (02/22/2018 1:00 PM CDT) Anatomical Region Laterality Modality Abdomen Ultrasound 02/22/2018 1:01 PM CDT Impressions 02/22/2018 1:04 PM CDT Very small renal cortical cysts are present bilaterally. No hydronephrosis. Otherwise unremarkable renal ultrasound. Narrative 02/22/2018 1:04 PM CDT Ultrasound retrograde new complete kidneys and urinary bladder INDICATION: Elevated creatinine, renal insufficiency Grayscale ultrasound of the kidneys and urinary bladder performed. There is no hydronephrosis. There are small bilateral renal cortical cysts. Right kidney measures 10.0 x 5.2 x 5.8 cm. Small midpole parapelvic cyst measures 1.6 cm as well as an additional cyst midpole measuring 1.2 cm. Small hyperechoic focus is noted as well suspicious for small calcification measuring 6 mm. Left kidney itself measures 11.7 x 6.0 x 5.5 cm. Small cortical cysts are noted including midpole cyst measuring 1.4 x 1.5 x 1.2 cm. Bladder is partially distended. Ureteral jets are not identified. Procedure Note Sanjuanita Alfonso MD - 02/22/2018 Ultrasound retrograde new complete kidneys and urinary bladder INDICATION: Elevated creatinine, renal insufficiency Grayscale ultrasound of the kidneys and urinary bladder performed. There is no hydronephrosis. There are small bilateral renal cortical cysts. Right kidney measures 10.0 x 5.2 x 5.8 cm. Small midpole parapelvic cyst measures 1.6 cm as well as an additional cyst midpole measuring 1.2 cm. Small hyperechoic focus is noted as well suspicious for small calcification measuring 6 mm. Left kidney itself measures 11.7 x 6.0 x 5.5 cm. Small cortical cysts are noted including midpole cyst measuring 1.4 x 1.5 x 1.2 cm. Bladder is partially distended. Ureteral jets are not identified. IMPRESSION Very small renal cortical cysts are present bilaterally. No hydronephrosis. Otherwise unremarkable renal ultrasound. Chinedu Molina MD US ORDERABLES * CT ABDOMEN WWO PELVIS W CONT (11/26/2017 12:50 PM GIS INSTRUCTOR) Anatomical Region Laterality Modality Abdomen, Pelvis Computed Tomogra phy 11/26/2017 3:19 PM GIS INSTRUCTOR Impressions 11/27/2017 1:03 PM GIS INSTRUCTOR SMOOTHLY BORDERED LOW-ATTENUATION NONENHANCING LESION NEAR THE DOME OF LIVER, MOST LIKELY CONSISTENT WITH CYST. NO EXPLANATION FOR ELEVATED LIVER FUNCTION TESTS. TINY PERIAORTIC LYMPH NODES. Edited by Kristi Waite on 11/26/2017 3:43 PM Narrative 11/27/2017 1:[address] ABDOMEN AND PELVIS WITHOUT AND WITH IV CONTRAST, CT MIP RECONSTRUCTIONS INDICATION: History of glioma; abnormal liver function tests. Helical CT images of the abdomen and pelvis were obtained following 80 mL Omnipaque 350 with precontrast images through the abdomen. FINDINGS: ABDOMEN: Visualized lung bases are unremarkable. There is a well-defined low-attenuation lesion in the right lobe of the liver near the dome, which does not show nodularity or significant enhancement. This measures 2.7 x 2.0 cm and would be probably most consistent with a cyst. There is no appreciable explanation for elevated liver function tests. Gallbladder is contracted. The spleen and pancreas are unremarkable. The kidneys and adrenals are unremarkable with the exception of small nonenhancing foci consistent with probable small cysts. Small periaortic lymph nodes are noted, none of which are grossly enlarged. The patient was unable to follow instructions or remain still during the examination; there is motion artifact. Right common iliac appears mildly dilated measuring 1.8 cm, but again significant motion artifact. PELVIS: There is no free fluid. There is no pelvic mass. Colonic loops appear unremarkable. Procedure Note Sanjuanita Alfonso MD - 11/27/2017 CT ABDOMEN AND PELVIS WITHOUT AND WITH IV CONTRAST, CT MIP RECONSTRUCTIONS INDICATION: History of glioma; abnormal liver function tests. Helical CT images of the abdomen and pelvis were obtained following 80 mL Omnipaque 350 with precontrast images through the abdomen. FINDINGS: ABDOMEN: Visualized lung bases are unremarkable. There is a well-defined low-attenuation lesion in the right lobe of the liver near the dome, which does not show nodularity or significant enhancement. This measures 2.7 x 2.0 cm and would be probably most consistent with a cyst. There is no appreciable explanation for elevated liver function tests. Gallbladder is contracted. The spleen and pancreas are unremarkable. The kidneys and adrenals are unremarkable with the exception of small nonenhancing foci consistent with probable small cysts. Small periaortic lymph nodes are noted, none of which are grossly enlarged. The patient was unable to follow instructions or remain still during the examination; there is motion artifact. Right common iliac appears mildly dilated measuring 1.8 cm, but again significant motion artifact. PELVIS: There is no free fluid. There is no pelvic mass. Colonic loops appear unremarkable. IMPRESSION SMOOTHLY BORDERED LOW-ATTENUATION NONENHANCING LESION NEAR THE DOME OF LIVER, MOST LIKELY CONSISTENT WITH CYST. NO EXPLANATION FOR ELEVATED LIVER FUNCTION TESTS. TINY PERIAORTIC LYMPH NODES. Edited by Kristi Waite on 11/26/2017 3:43 PM Chinedu Molina MD CT ORDERABLES * (ABNORMAL) HEPATIC FUNCTION PANEL (11/24/2017 1:54 PM GIS INSTRUCTOR) Protein Total 6.2(L) 6.4 - 8.2 gm/dL [facility] ACCOUNT BILL Albumin 3.2(L) 3.4 - 5.0 gm/dL [facility] ACCOUNT BILL Bilirubin Total 0.7 0.2 - 1.0 mg/dL [facility] ACCOUNT BILL Bilirubin Direct 0.2 0 - 0.3 mg/dL [facility] ACCOUNT BILL Alkaline Phosphatase 115 38 - 126 U/L [facility] ACCOUNT BILL AST 72(H) 5 - 40 U/L [facility] ACCOUNT BILL ALT 416(H) 13 - 61 U/L [facility] ACCOUNT BILL Blood BLOOD SPECIMEN / Unknown 11/24/2017 1:54 PM GIS INSTRUCTOR 11/24/2017 Narrative Resulting Agency Comment [facility] [address] [place] [phone] Greta Aldana [employer]PER[employer] COORDINATOR LAB - CHEMISTRY O RDERABLES [facility] ACCOUNT BILL [address] [place] [address] * (ABNORMAL) CBC W/O DIFFERENTIAL (11/20/2017 4:40 AM GIS INSTRUCTOR) WBC 23.1(H) 4.4 - 10.7 x10E9/L 11/20/2017 7:27 AM [facility] RBC 5.78(H) 3.80 - 5.40 x10E12/L 11/20/2017 7:27 AM [facility] Hemoglobin 16.9 12.0 - 17.6 gm/dL 11/20/2017 7:27 AM [facility] Hematocrit 48.4 35.2 - 51.7 % 11/20/2017 7:27 AM [facility] MCV 83.7 80.7 - 98.3 fl 11/20/2017 7:27 AM [facility] MCH 29.2 26.7 - 34.0 pg 11/20/2017 7:27 AM [facility] MCHC 34.9 30.8 - 35.9 gm/dL 11/20/2017 7:27 AM [facility] Platelet Count 174 153 - 416 x10E9/L 11/20/2017 7:27 AM [facility] RDW-CV 13.6 12.1 - 14.9 % 11/20/2017 7:27 AM [facility] MPV 12.1 9.4 - 12.9 fl 11/20/2017 7:27 AM [facility] Blood BLOOD SPECIMEN / Unknown Venipuncture / Unknown 11/20/2017 4:40 AM GIS INSTRUCTOR 11/20/2017 7:17 AM GIS INSTRUCTOR Chelly Briseno MD LAB - HEMATOLOGY ORD ERABLES [facility] [address] [place] [address] * CARDIAC RHYTHM STRIP ORDER (11/16/2017 7:33 PM GIS INSTRUCTOR) Only the most recent of2 resultswithin the time period is included. Narrative 11/16/2017 7:33 PM GIS INSTRUCTOR Ordered by an unspecified provider. Scanned Document CARDIAC SERVICES ORD ERABLES * CT HEAD NON CONTRAST (11/12/2017 5:41 AM GIS INSTRUCTOR) Only the most recent of2 resultswithin the time period is included. Anatomical Region Laterality Modality Head Computed Tomogra phy 11/12/2017 7:28 AM GIS INSTRUCTOR Impressions 11/12/2017 7:32 AM GIS INSTRUCTOR No significant change in the edema, hemorrhage and postoperative site with mass effect and midline shift. Hematoma and subarachnoid hemorrhage is unchanged Narrative 11/12/2017 7:[address] Head Noncontrast Indication: Status post brain biopsy, right facial droop Technique: CT images of the brain were obtained at 5 mm intervals without contrast. Findings: Comparison 11/11/2017. There is no significant change in the edema and blood products at the left frontal and temporal lobes deep to the craniotomy defect. Subarachnoid and intraparenchymal hemorrhage is very similar with the largest portion of the left temporal hematoma again measuring 1.5 x 2.4 cm. There is mass effect upon the left lateral ventricle and midline shift of 5-6 mm unchanged. Procedure Note Sanjuanita Alfonso MD - 11/12/2017 CT Head Noncontrast Indication: Status post brain biopsy, right facial droop Technique: CT images of the brain were obtained at 5 mm intervals without contrast. Findings: Comparison 11/11/2017. There is no significant change in the edema and blood products at the left frontal and temporal lobes deep to the craniotomy defect. Subarachnoid and intraparenchymal hemorrhage is very similar with the largest portion of the left temporal hematoma again measuring 1.5 x 2.4 cm. There is mass effect upon the left lateral ventricle and midline shift of 5-6 mm unchanged. IMPRESSION No significant change in the edema, hemorrhage and postoperative site with mass effect and midline shift. Hematoma and subarachnoid hemorrhage is unchanged Jagdish Knight MD CT ORDERABLES * CULTURE VRE (11/11/2017 9:07 PM GIS INSTRUCTOR) Culture Negative for vancomycin-resi stant Enterococci (VRE) SARAHI 11/13/2017 7:[address] [facility] MICROBIOLOGY Stool RECTAL SWAB / Unknown Collection / Unknown 11/11/2017 9:07 PM GIS INSTRUCTOR 11/11/2017 9:28 PM GIS INSTRUCTOR Hayden Barone MD LAB - MICROBIOL OGY ORDERABLES Performing Organization Address City/[facility]/ZIP Co de Phone Number [facility] MICROBIOLOGY [address] [place], [place] [address] [place] [address] * LAB MISC TEST (NOT BLOOD) (11/11/2017 12:50 PM GIS INSTRUCTOR) Only the most recent of2 resultswithin the time period is included. Test Name IDH1 and IDH2 mutation analysis, EXON 4, formalin-fix ed, paraffin-emb edded tissue 11/25/2017 8:40 AM GIS INSTRUCTOR [facility] Test Result See Scanned Report 11/25/2017 8:40 AM GIS INSTRUCTOR [facility] REF LAB NON INTERF Comment Ref Lab 11/25/2017 8:40 AM GIS INSTRUCTOR [facility] REF LAB NON INTERF Other TUMOR TISSUE SPECIMEN / Unknown 11/11/2017 12:50 PM GIS INSTRUCTOR 11/14/2017 1:23 PM GIS INSTRUCTOR Alexi Tran MD LAB - BODY FLUID O RDERABLES Performing Organization Address City/[facility]/ZIP Co de Phone Number [facility] INTERF [id number] [place] [address], [facility] [address] [place] [id number] * BLOOD TYPE VERIFICATION (11/11/2017 10:10 AM GIS INSTRUCTOR) ABO B 11/11/2017 10:38 AM GIS INSTRUCTOR PSYCHIATRIC BLOOD BANK Rh Type Positive 11/11/2017 10:38 AM GIS INSTRUCTOR PSYCHIATRIC BLOOD BANK Blood Bank BLOOD SPECIMEN / Unknown 11/11/2017 10:10 AM GIS INSTRUCTOR 11/11/2017 10:10 AM GIS INSTRUCTOR Hayden Barone MD LAB - BLOOD BAN K ORDERABLES PSYCHIATRIC BLOOD BANK [address] * MRI BRAIN FUNCTIONAL (10/08/2017 9:16 AM GIS INSTRUCTOR) Anatomical Region Laterality Modality Head Magnetic Resonan ce 10/08/2017 1:56 PM GIS INSTRUCTOR Addenda Addendum by Chinedu Tello MD on 10/30/2017 2:49 PM GIS INSTRUCTOR Areas of activation are seen in the left anterior frontal lobe which would correspond with Broca's area. Additional areas of activation are seen in a continuum from anterior to posterior in the left temporal lobe consistent with Wernicke's area. The most anterior region of Wernicke's area which is typically seen appears to be disrupted by tumor. This was discussed with Dr. Fierro at 12:15 p.m. on October 30, 2017. Edited by Pratibha Weldon on 10/30/2017 12:20 PM Impressions 10/08/2017 4:37 PM GIS INSTRUCTOR Some activation in the medial left temporal lobe in an area which appears to be affected by tumor given the task of word generation. There is a lack of activation in the expected location of Broca's area with the task of word generation. This area may have been obliterated or disrupted by tumor or prior surgery. Edited by Ingrid Pena on 10/08/2017 2:18 PM Narrative 10/08/2017 4:37 PM GIS INSTRUCTOR MRI BRAIN FUNCTIONAL INDICATION: History of brain tumor and craniotomy left frontal temporal region. TECHNIQUE: Functional MRI of the brain was performed with tasks of verb generation, bilateral foot motion, sentence completion, lip movement, picture naming, verb generation, word degeneration, bilateral finger motion, bilateral foot motion. Fiber tracking was also performed. FINDINGS: There is lack of activation of Broca's area with the task of word generation. This area may have been obliterated or disrupted by tumor or prior surgery. There is no activation or deactivation in the area of left frontotemporal mass with the task of bilateral foot motion or word generation. There is also some activity at the anterior and inferior portion of the tumor with the task of picture naming. Given the task of word generation, there is activity in the medial left temporal lobe in an area which appears to be affected by tumor. Given the task of bilateral finger motion, there is activity immediately posterior to the area of abnormal signal intensity consistent with tumor in the left perisylvian frontal and parietal lobe. Procedure Note Yas Cox MD / Chinedu Tello MD - 10/08/2017 MRI BRAIN FUNCTIONAL INDICATION: History of brain tumor and craniotomy left frontal temporal region. TECHNIQUE: Functional MRI of the brain was performed with tasks of verb generation, bilateral foot motion, sentence completion, lip movement, picture naming, verb generation, word degeneration, bilateral finger motion, bilateral foot motion. Fiber tracking was also performed. FINDINGS: There is lack of activation of Broca's area with the task of word generation. This area may have been obliterated or disrupted by tumor or prior surgery. There is no activation or deactivation in the area of left frontotemporal mass with the task of bilateral foot motion or word generation. There is also some activity at the anterior and inferior portion of the tumor with the task of picture naming. Given the task of word generation, there is activity in the medial left temporal lobe in an area which appears to be affected by tumor. Given the task of bilateral finger motion, there is activity immediately posterior to the area of abnormal signal intensity consistent with tumor in the left perisylvian frontal and parietal lobe. IMPRESSION Some activation in the medial left temporal lobe in an area which appears to be affected by tumor given the task of word generation. There is a lack of activation in the expected location of Broca's area with the task of word generation. This area may have been obliterated or disrupted by tumor or prior surgery. Edited by Ingrid Pena on 10/08/2017 2:18 PM Hayden Barone MD MR ORDERABLES * IMAGING/RADIOLOGY/XRAY RESULTS ORDER (10/05/2017) Only the most recent of2 resultswithin the time period is included. Anatomical Region Laterality Modality Other Lee Steinberg MD IMAGING * SED RATE WESTERGREN (01/14/2017 5:44 PM CDT) Erythrocyte Sedimentation Rate Westergren 1 0 - 20 mm/hr 01/14/2017 6:18 PM CDT PS[facility]IATRIC LABORATORY Blood BLOOD SPECIMEN / Unknown Lab Venipuncture / Unknown 01/14/2017 5:44 PM CDT 01/14/2017 5:57 PM CDT Pradeep Kumar MD LAB - HEMATOLOGY ORD ERABLES [facility] [address] [place] [address] * BRAIN BIOPSY (10/27/2001) Provider Unknown GENERIC SURGICAL HIS TORY Care Teams Counter Maker Relationship Specialty Start Date End Date Leonides Mcneil MD [address] [address] PCP - General Family Medicine 01/14/17 [place]ña [place] [address] [facility] [address] [place] [address] Client Service Professional/Oncologist Hematology and Oncology 06/07/21 Greta Aldana, [employer] PLANT OPERATOR-POST ADOPTION COORDINATOR [address] [address] Advance Practice Nurse Hematology and Oncology 06/07/21
--- OUTSIDE RECORDS SUMMARY | 2024-12-05 12:37 | XMS_ITS | Clinical Summary ---
Author Organization [facility] Care Team Providers Care Leadership Intern Name Role Phone Unavailable Primary Care Provider Unavailabl e Social History Tobacco Use Types Packs/Day Years Used Date Smoking Tobacco: Never Assessed Sex and Gender Information Value Date Recorded Sex Assigned at Not on file Legal Sex Male 12:25 AM CDT Gender Identity Not on file Sexual Orientation Not on file Plan of Treatment Health Maintenance Due Date Last Done Comments Hepatitis C Virus (HCV) Screening 1960 TdaP Immunization 1960 Colonoscopy 2005 Colorectal Cancer Screening 2005 Cologuard 2010 Immunochemical Fecal Occult Blood 2010 Pneumococcal Immunization (5 0+ years) (1 of 1 - PCV) 2010 Zoster Immunization (1 of 2) 2010 PSA Discussion 2015 Influenza Immunization (#1) 2024 SARS-COV-2 Immunization ( - 2023- season) 2024 Respiratory Syncytial Virus (RSV) Immunization (Adult) (1 - 1-dose 75+ series) 2035 Hepatitis B Immunization Aged Out No longer eligible based on patient's age to complete this topic Meningococcal Immunization (ACWY) Aged Out No longer eligible based on patient's age to complete this topic Pneumococcal Immunization Combined Aged Out No longer eligible based on patient's age to complete this topic Rotavirus Immunization Aged Out No lo nger eligible based on patient's age to complete this topic
--- NOTE | 2024-12-05 14:41 | ECG_ITS ---
Test Date: 2024-12-05 16:54:06 Measurements Intervals [place] Rate: 82 P: 0 ME: 0 QRS: 11 QRSD: 91 T: 2 QT: 313 QTc: 368 Interpretive Statements SINUS RHYTHM WITH FREQUENT ATRIAL PREMATURE COMPLEXES MODERATE T-WAVE ABNORMALITY, CONSIDER ANTEROLATERAL ISCHEMIA BASELINE ARTIFACT- I, II, III, AVR, AVL, AVF, V1-V6 ABNORMAL ECG No previous ECG available for comparison Electronically Signed On 12-05-2024 17:02:45 BILINGUAL ACCOUNT MANAGER by Garrick Hathaway D.O.
--- NOTE | 2024-12-05 14:42 | ED_ITS ---
HPI - Fall General Chief Complaint: Shortness of Breath/Dyspnea <Brenda Barkley PA-C - Last Filed: 12/07/24 18:46> Stated Complaint: GLF, sob x 2 days <Brenda Barkley PA-C - Last Filed: 12/07/24 18:46> Time Seen by Provider: 12/05/24 14:41 <Brenda Barkley PA-C - Last Filed: 12/07/24 18:46> Focused HPI: This is a 64-year-old male that presents to the emergency department after falls. Reports he currently has influenza A. He has been weak and has had 2 fall due to this since yesterday. His does not believe that he has lost consciousness. GENERAL: Well-appearing, well-nourished, and in no acute distress. HEAD: Normocephalic, atraumatic. CHEST: Clear to auscultation. ?No respiratory distress. HEART: Regular rate and rhythm.? NEURO: ?Alert and oriented x1. Patient screened in triage and initial orders placed.? ?Additional care and disposition to be based upon?diagnostic testing and treatment. <Brenda Barkley PA-C - Last Filed: 12/07/24 18:46> Focused HPI: This is a 64-year-old male that presents to the emergency department after falls. Reports he currently has influenza A. He has been weak and has had 2 falls due to this since yesterday. His does not believe that he has lost consciousness. GENERAL: Well-appearing, well-nourished, and in no acute distress. HEAD: Normocephalic, atraumatic. CHEST: Clear to auscultation. ?No respiratory distress. HEART: Regular rate and rhythm.? NEURO: ?Alert and oriented x1. Patient screened in triage and initial orders placed.? ?Additional care and disposition to be based upon?diagnostic testing and treatment. <Margie Hdez APRN - Last Filed: 12/06/24 04:51> History of Present Illness HPI Narrative: I agree with the assessment and documentation from KELLEY Gtuierrez. <Margie Hdez APRN - Last Filed: 12/06/24 04:51> Related Data Home Medications: Home Medications ?Medication ?Instructions ?Recorded ?Confirmed ?Last Taken ?Type ondansetron HCl 8 mg tablet 8 mg PO Q8H PRN nausea and vomiting 02/19/23 12/28/23 Unknown History prochlorperazine maleate 10 mg 10 mg PO Q6H PRN nausea and 02/19/23 12/28/23 Unknown History tablet vomiting temozolomide 100 mg capsule 300 mg PO DAILY 02/24/23 12/28/23 Unknown History lamotrigine 150 mg tablet 200 mg PO BID 12/28/23 12/28/23 Unknown History <Brenda Barkley PA-C - Last Filed: 12/07/24 18:46> Allergies/Adverse Reactions: Allergies Allergy/AdvReac Type Severity Reaction Status Date / Time sulfamethoxazole Allergy Unknown Unknown Verified 12/28/23 14:07 trimethoprim Allergy Unknown Unknown Verified 12/28/23 14:07 amlodipine AdvReac Intermediate Other Verified 12/28/23 14:07 <Brenda Barkley PA-C - Last Filed: 12/07/24 18:46> Review of Systems 2 Review of Systems: All systems reviewed & are unremarkable except as noted in HPI and below <Margie Hdez APRN - Last Filed: 12/06/24 04:51> [facility] Past Medical History Medical History: Medical History Malignant neoplasm of brain, unspecified (2001) Astrocytoma <Brenda Barkley PA-C - Last Filed: 12/07/24 18:46> Surgical History Surgical History: Surgical History History of craniotomy (2018) Removal of glioma History of craniotomy (2001) Excision of astrocytoma H/O left inguinal hernia repair (2013) <Brenda Barkley PA-C - Last Filed: 12/07/24 18:46> Family History Family History: Family History Father Hypertension Malignant neoplasm of prostate Diabetes mellitus Other Cerebrovascular accident Family history of cardiovascular disease <Brenda Barkley PA-C - Last Filed: 12/07/24 18:46> Social History Social History: Social History Smoking status: Never smoker Second hand tobacco smoke exposure: No Alcohol intake: never Substance use: never Substance use type: does not use Lack of Transportation: No Lack of Food: Never True Current Housing: I Have Housing Concerned About Future Housing: No Difficulty Paying Gas/Electric Bills: No Difficulty Paying for Meds: No Currently Unemployed: No Education: Trade/Vocational Certificate Difficulty w/ Childcare or Family Care: No Living arrangements: with family Occupation/Education: other Additional occupation/education comments: Disability Gender identity (if verbalized by the patient): Male Spiritual care concerns: No Agree to blood products: Yes <Brenda Barkley PA-C - Last Filed: 12/07/24 18:46> Exam 2 Narrative: GENERAL: Well appearing, well-nourished, non-toxic, in no acute distress. HEAD: Normocephalic, atraumatic. NECK: Supple. No adenopathy, no masses. RESPIRATORY: Airway patent, respirations nonlabored. Coarse to auscultation lower lobes bilaterally, no rales, rhonchi, mild upper lobe wheezing. CARDIOVASCULAR: Regular rate and rhythm without murmurs, rubs, or gallops. Peripheral pulses 2+ and equal bilaterally. ABDOMINAL: Soft, nontender, nondistended, no hepatosplenomegaly. Normoactive BS. MUSCULOSKELETAL: Moves all extremities. ROM intact without gross deformities. R- side weaker than L-side (baseline) SKIN: Warm, dry, normal color. No rashes. NEURO: A&O X3. + aphasia (baseline) PSYCHIATRIC: Appropriate mood and flat affect. Normal interaction. <Margie Hdez APRN - Last Filed: 12/06/24 04:51> Course JUKEBOX ROUTE DRIVER/PA Physician Supervision JUKEBOX ROUTE DRIVER signed patient out to me pending result of CT scan and a reassessment. However, JUKEBOX ROUTE DRIVER was still in the department when the results of the CT stat rad resulted. Given the findings of the renal mass and the STEFAN feeling like she had a good report relationship with the family. She decided to inform them of these findings at bedside but told them that I would prepare discharge instructions. I assessed the patient at bedside at approximately 5:00 a.m.. He is feeling better and he and his at bedside do report that Margie spoke with them. He has already ambulated to the bathroom according to the nurses and did so without any issues or gait instability. Family feels comfortable with discharge. He is not in work note as he is on disability. <Estela Alamo MD - Last Filed: 12/06/24 05:06> Vital Signs Vital signs: Vital Signs Temperature 99.8 F H 12/05/24 12:51 Pulse Rate 82 12/05/24 12:51 Respiratory Rate 17 12/05/24 12:51 Blood Pressure 134/91 H 12/05/24 12:51 Pulse Oximetry 93 12/05/24 12:51 Oxygen Delivery Room Air 12/05/24 12:51 Temperature 99.5 F 12/05/24 16:55 Pulse Rate 73 12/06/24 05:28 Respiratory Rate 17 12/06/24 05:28 Blood Pressure 139/83 12/06/24 05:28 Pulse Oximetry 97 12/06/24 05:28 Oxygen Delivery Room Air 12/05/24 16:55 <Brenda Barkley PA-C - Last Filed: 12/07/24 18:46> Vital Signs Temperature 99.8 F H 12/05/24 12:51 Pulse Rate 82 12/05/24 12:51 Respiratory Rate 17 12/05/24 12:51 Blood Pressure 134/91 H 12/05/24 12:51 Pulse Oximetry 93 12/05/24 12:51 Oxygen Delivery Room Air 12/05/24 12:51 Temperature 99.5 F 12/05/24 16:55 Pulse Rate 73 12/06/24 05:28 Respiratory Rate 17 12/06/24 05:28 Blood Pressure 139/83 12/06/24 05:28 Pulse Oximetry 97 12/06/24 05:28 Oxygen Delivery Room Air 12/05/24 16:55 <Margie Hdez APRN - Last Filed: 12/06/24 04:51> Vital Signs Temperature 99.8 F H 12/05/24 12:51 Pulse Rate 82 12/05/24 12:51 Respiratory Rate 17 12/05/24 12:51 Blood Pressure 134/91 H 12/05/24 12:51 Pulse Oximetry 93 12/05/24 12:51 Oxygen Delivery Room Air 12/05/24 12:51 Temperature 99.5 F 12/05/24 16:55 Pulse Rate 73 12/06/24 05:28 Respiratory Rate 17 12/06/24 05:28 Blood Pressure 139/83 12/06/24 05:28 Pulse Oximetry 97 12/06/24 05:28 Oxygen Delivery Room Air 12/05/24 16:55 <Estela Alamo MD - Last Filed: 12/06/24 05:06> MDM - Fall MDM Narrative Medical decision making narrative: Pt is a 64-year-old male that presents to the emergency department after falls. Reports he currently has influenza A. He has been weak and has had 2 falls due to this since yesterday. His does not believe that he has lost consciousness. Labs Ordered: CBC, CMP, troponin, INR, PTT, COVID/flu/RSV swab, d. dimer Imaging Ordered: CT cervical spine without con, CT brain without con, chest x- ray two view, CTA chest PE scan Medications Ordered: 1 L normal saline IV bolus, Tylenol 1 g p.o., duo neb Results: Patient's chest x-ray indicates there is no pneumonia, pleural effusion, or pneumothorax. The heart size is normal. There are old healed right rib fractures. Patient's cervical spine CT scan indicates No fracture. Moderate spondylosis at C3-C4 and mild spondylosis at other levels. Patient's brain CT scan indicates No fracture or acute intracranial process. Encephalomalacia in the left frontal lobe and anterior left temporal lobe which could represent sequela prior infarct, trauma or surgery and which underlies a left frontal craniotomy defect. Correlate with clinical/surgical history. Diagnosis: Upper respiratory infection Risks: PERC Rule for Pulmonary Embolism from [email or web address] on 12/05/2024 All calculations should be rechecked by clinician prior to use RESULT SUMMARY: 2 criteria If any criteria are positive, the PERC rule cannot be used to rule out PE in this patient. INPUTS: Age >=0 ?> 1 = Yes HR >=00 ?> 0 = No O? sat on room air <95% ?> 1 = Yes Unilateral leg swelling ?> 0 = No Hemoptysis ?> 0 = No Recent surgery or trauma ?> 0 = No Prior PE or DVT ?> 0 = No Hormone use ?> 0 = No Will obtain a d.dimer to rule out a PE. Patient's D-dimer was elevated to 2.08, so a CTA chest PE scan was ordered. Consults: None necessary Patient Education/Shared MDM: Results of imaging and blood work shared with patient and his . (0450-Results of CTA scan shared with them, with concerns of renal mass. Strongly advised to follow-up as outpatient as soon as possible). Patient strongly advised to maintain hydration status upon discharge and follow- up with his PCP. He will not be discharged home with any new prescriptions. Strict return precautions provided. Patient verbalized understanding and is in agreement with plan. Vital signs stable at time of discharge. All questions answered. <Margie Hdez APRN - Last Filed: 12/06/24 04:51> Differential Diagnosis Differential diagnosis: Likely other (influenza, PE, COVID, subdural hematoma) <Margie Hdez APRN - Last Filed: 12/06/24 04:51> Lab Data Attestation: I reviewed the patient's lab results. <Margie Hdez APRN - Last Filed: 12/06/24 04:51> Result diagrams: 12/05/24 16:58 12/05/24 16:58 <Brenda Barkley PA-C - Last Filed: 12/07/24 18:46> Labs: Lab Results 12/05/24 12/05/24 Range/Units 16:58 23:12 WBC 8.0 (4.5-10.0) K/mm3 RBC 5.45 (4.6-6.20) M/mm3 Hgb 16.3 (14.0-18.0) g/dL Hct 47.5 (42.0-52.0) % MCV 87.2 (80-100) fl MCH 29.9 (26-34) pg MCHC 34.3 (32-36) g/dl RDW 14.1 (11.5-14.5) % Plt Count 145 L (150-375) k/mm3 MPV 10.3 (7.4-10.4) fl Immature Gran % (Auto) 0.8 H (0-0.5) % Neut % (Auto) 73.9 H (45.5-73.1) % Lymph % (Auto) 13.6 L (18.3-44.2) % Foster % (Auto) 11.2 H (2.6-8.5) % Eos % (Auto) 0.1 (0-4.4) % Baso % (Auto) 0.4 (0.2-1.2) % Lymph # (Auto) 1.08 (0.9-3.2) K/mm3 Foster # (Auto) 0.9 H (0.1-0.6) K/mm3 Eos # (Auto) 0.0 (0-0.3) K/mm3 Baso # (Auto) 0.0 (0.0-0.1) K/mm3 Abs Immat Gran (auto) 0.06 H (0.00-0.031) K/mm3 Absolute Neuts (auto) 5.9 (1.3-6.7) K/mm3 Absolute Nucleated RBC 0.000 (0.0-0.012) K/mm3 Nucleated RBC % 0.0 (0.0-0.2) % PT 13.3 (11.1-14.7) Seconds INR 1.0 APTT 30.6 (22.3-36.8) Seconds D-Dimer 2.08 H (<0.48) ug/mL Sodium 138 (137-145) mmol/L Potassium 4.2 (3.4-5.0) mmol/L Chloride 100 (98-107) mmol/L Carbon Dioxide 28 (22-30) mmol/L Anion Gap 10 (4-12) mmol/L BUN 19 (9-20) mg/dL Creatinine 1.76 H (0.7-1.3) mg/dL Estim Creat Clear Calc 37 ml/min Estimated GFR 39 L (59 - ) Glucose 121 H (65-110) mg/dL Calcium 9.9 (8.4-10.2) mg/dL Total Bilirubin 0.9 (0.2-1.3) mg/dL AST 31 (17-59) U/L ALT 40 (6-50) U/L Alkaline Phosphatase 99 (38-126) U/L Troponin I < 0.012 (0.000-0.034) ng/mL Total Protein 8.0 (6.3-8.2) g/dL Albumin 4.3 (3.5-5.1) g/dL Influenza A (RT-PCR) Negative (Negative) Influenza B (RT-PCR) Negative (Negative) RSV (RT-PCR) Negative (Negative) SARS-CoV-2 RNA (RT-PCR) Negative (Negative) <Brenda Barkley PA-C - Last Filed: 12/07/24 18:46> Lab Results 12/05/24 12/05/24 Range/Units 16:58 23:12 WBC 8.0 (4.5-10.0) K/mm3 RBC 5.45 (4.6-6.20) M/mm3 Hgb 16.3 (14.0-18.0) g/dL Hct 47.5 (42.0-52.0) % MCV 87.2 (80-100) fl MCH 29.9 (26-34) pg MCHC 34.3 (32-36) g/dl RDW 14.1 (11.5-14.5) % Plt Count 145 L (150-375) k/mm3 MPV 10.3 (7.4-10.4) fl Immature Gran % (Auto) 0.8 H (0-0.5) % Neut % (Auto) 73.9 H (45.5-73.1) % Lymph % (Auto) 13.6 L (18.3-44.2) % Foster % (Auto) 11.2 H (2.6-8.5) % Eos % (Auto) 0.1 (0-4.4) % Baso % (Auto) 0.4 (0.2-1.2) % Lymph # (Auto) 1.08 (0.9-3.2) K/mm3 Foster # (Auto) 0.9 H (0.1-0.6) K/mm3 Eos # (Auto) 0.0 (0-0.3) K/mm3 Baso # (Auto) 0.0 (0.0-0.1) K/mm3 Abs Immat Gran (auto) 0.06 H (0.00-0.031) K/mm3 Absolute Neuts (auto) 5.9 (1.3-6.7) K/mm3 Absolute Nucleated RBC 0.000 (0.0-0.012) K/mm3 Nucleated RBC % 0.0 (0.0-0.2) % PT 13.3 (11.1-14.7) Seconds INR 1.0 APTT 30.6 (22.3-36.8) Seconds D-Dimer 2.08 H (<0.48) ug/mL Sodium 138 (137-145) mmol/L Potassium 4.2 (3.4-5.0) mmol/L Chloride 100 (98-107) mmol/L Carbon Dioxide 28 (22-30) mmol/L Anion Gap 10 (4-12) mmol/L BUN 19 (9-20) mg/dL Creatinine 1.76 H (0.7-1.3) mg/dL Estim Creat Clear Calc 37 ml/min Estimated GFR 39 L (59 - ) Glucose 121 H (65-110) mg/dL Calcium 9.9 (8.4-10.2) mg/dL Total Bilirubin 0.9 (0.2-1.3) mg/dL AST 31 (17-59) U/L ALT 40 (6-50) U/L Alkaline Phosphatase 99 (38-126) U/L Troponin I < 0.012 (0.000-0.034) ng/mL Total Protein 8.0 (6.3-8.2) g/dL Albumin 4.3 (3.5-5.1) g/dL Influenza A (RT-PCR) Negative (Negative) Influenza B (RT-PCR) Negative (Negative) RSV (RT-PCR) Negative (Negative) SARS-CoV-2 RNA (RT-PCR) Negative (Negative) <Margie Hdez, SOURCING MANAGER - Last Filed: 12/06/24 04:51> Lab Results 12/05/24 12/05/24 Range/Units 16:58 23:12 WBC 8.0 (4.5-10.0) K/mm3 RBC 5.45 (4.6-6.20) M/mm3 Hgb 16.3 (14.0-18.0) g/dL Hct 47.5 (42.0-52.0) % MCV 87.2 (80-100) fl MCH 29.9 (26-34) pg MCHC 34.3 (32-36) g/dl RDW 14.1 (11.5-14.5) % Plt Count 145 L (150-375) k/mm3 MPV 10.3 (7.4-10.4) fl Immature Gran % (Auto) 0.8 H (0-0.5) % Neut % (Auto) 73.9 H (45.5-73.1) % Lymph % (Auto) 13.6 L (18.3-44.2) % Foster % (Auto) 11.2 H (2.6-8.5) % Eos % (Auto) 0.1 (0-4.4) % Baso % (Auto) 0.4 (0.2-1.2) % Lymph # (Auto) 1.08 (0.9-3.2) K/mm3 Foster # (Auto) 0.9 H (0.1-0.6) K/mm3 Eos # (Auto) 0.0 (0-0.3) K/mm3 Baso # (Auto) 0.0 (0.0-0.1) K/mm3 Abs Immat Gran (auto) 0.06 H (0.00-0.031) K/mm3 Absolute Neuts (auto) 5.9 (1.3-6.7) K/mm3 Absolute Nucleated RBC 0.000 (0.0-0.012) K/mm3 Nucleated RBC % 0.0 (0.0-0.2) % PT 13.3 (11.1-14.7) Seconds INR 1.0 APTT 30.6 (22.3-36.8) Seconds D-Dimer 2.08 H (<0.48) ug/mL Sodium 138 (137-145) mmol/L Potassium 4.2 (3.4-5.0) mmol/L Chloride 100 (98-107) mmol/L Carbon Dioxide 28 (22-30) mmol/L Anion Gap 10 (4-12) mmol/L BUN 19 (9-20) mg/dL Creatinine 1.76 H (0.7-1.3) mg/dL Estim Creat Clear Calc 37 ml/min Estimated GFR 39 L (59 - ) Glucose 121 H (65-110) mg/dL Calcium 9.9 (8.4-10.2) mg/dL Total Bilirubin 0.9 (0.2-1.3) mg/dL AST 31 (17-59) U/L ALT 40 (6-50) U/L Alkaline Phosphatase 99 (38-126) U/L Troponin I < 0.012 (0.000-0.034) ng/mL Total Protein 8.0 (6.3-8.2) g/dL Albumin 4.3 (3.5-5.1) g/dL Influenza A (RT-PCR) Negative (Negative) Influenza B (RT-PCR) Negative (Negative) RSV (RT-PCR) Negative (Negative) SARS-CoV-2 RNA (RT-PCR) Negative (Negative) <Estela Alamo MD - Last Filed: 12/06/24 05:06> Imaging Data Attestation: I personally reviewed and interpreted this imaging study as follows: < Margie Hdez APRN - Last Filed: 12/06/24 04:51> Radiologist's impression: Impressions Head CT 12/05/24 15:11 IMPRESSION: 1. No fracture or acute intracranial process. 2. Encephalomalacia in the left frontal lobe and anterior left temporal lobe which could represent sequela prior infarct, trauma or surgery and which underlies a left frontal craniotomy defect. Correlate with clinical/surgical history. Cervical Spine CT 12/05/24 15:17 IMPRESSION: 1. No fracture. 2. Moderate spondylosis at C3-C4 and mild spondylosis at other levels. Chest X-Ray 12/05/24 15:38 IMPRESSION: 1. No acute cardiopulmonary disease. Chest CT 12/05/24 20:27 IMPRESSION: No cross-sectional imaging evidence to suggest the presence of pneumonia. The lungs are clear. <Margie Hdez APRN - Last Filed: 12/06/24 04:51> CTA Chest Stat Rad: Motion artifact mildly limits evaluation. Despite this, no evidence of pulmonary embolism within the pulmonary outflow tract her immediate proximal branches. Mild dependent atelectatic changes. 2.1 cm enhancing mass within the superior pole of the left kidney. Findings are favored to relate to renal neoplasm. ACR White Paper guidelines (Ashish, et al. JACR 2018; 15(2): 264:273) recommend MRI or CT without and with intravenous contrast. Chronic right rib fractures. Impressions Head CT 12/05/24 15:11 IMPRESSION: 1. No fracture or acute intracranial process. 2. Encephalomalacia in the left frontal lobe and anterior left temporal lobe which could represent sequela prior infarct, trauma or surgery and which underlies a left frontal craniotomy defect. Correlate with clinical/surgical history. Cervical Spine CT 12/05/24 15:17 IMPRESSION: 1. No fracture. 2. Moderate spondylosis at C3-C4 and mild spondylosis at other levels. Chest X-Ray 12/05/24 15:38 IMPRESSION: 1. No acute cardiopulmonary disease. Chest CT 12/05/24 20:27 IMPRESSION: No cross-sectional imaging evidence to suggest the presence of pneumonia. The lungs are clear. and with intravenous contrast. <Estela Alamo MD - Last Filed: 12/06/24 05:06> Critical Care Time Critical Care Time Critical Care Time: No <Brenda Barkley PA-C - Last Filed: 12/07/24 18:46> Discharge Plan Discharge Clinical Impression: Viral syndrome, Left kidney mass <Brenda Barkley PA-C - Last Filed: 12/07/24 18:46> Patient Disposition: Home, Self-Care <Brenda Barkley PA-C - Last Filed: 12/07/24 18:46> Condition: Stable <Brenda Barkley PA-C - Last Filed: 12/07/24 18:46> Instructions: Antibiotic Form, Viral Syndrome (ED) <Brenda Barkley PA-C - Last Filed: 12/07/24 18:46> Additional Instructions: It is felt that you likely had a virus although you tested negative for COVID, influenza a, influenza B, and RSV. Rest and maintain your hydration. For the findings of the left kidney mass, recommend MRI ro CT without and with IV contrast as per ACR White Paper GUidelines (Herts, et al. JACR 2018). Your primary care physician can help arrange this. Return to the emergency department with any new or worsening symptoms. <Brenda Barkley PA-C - Last Filed: 12/07/24 18:46> Patient Language: Thai <Brenda Barkley PA-C - Last Filed: 12/07/24 18:46> Prescriptions: No Action lamotrigine 150 mg tablet 200 mg PO BID ondansetron HCl 8 mg tablet 8 mg PO Q8H PRN (Reason: nausea and vomiting) prochlorperazine maleate 10 mg tablet 10 mg PO Q6H PRN (Reason: nausea and vomiting) temozolomide 100 mg capsule 300 mg PO DAILY Rx Instructions: 5 days out of 28 diphenhydramine HCl [Benadryl] 25 mg capsule 25 mg PO TID PRN (Reason: allergic reaction) Qty: 30 0RF escitalopram oxalate 20 mg tablet 20 mg PO DAILY Qty: 90 2RF lisinopril 20 mg tablet 20 mg PO DAILY Qty: 90 2RF <Brenda Barkley PA-C - Last Filed: 12/07/24 18:46> Follow-up/Referrals: Leonides Mcneil MD [Primary Care Provider] - <Brenda Barkley PA-C - Last Filed: 12/07/24 18:46> Time of Disposition: 05:03 <Brenda Barkley PA-C - Last Filed: 12/07/24 18:46> 05:03 <Margie Hdez APRN - Last Filed: 12/06/24 04:51> 05:03 <Estela Alamo MD - Last Filed: 12/06/24 05:06>
[2024-12-05] MEDS: ACETAMINOPHEN 500 MG TABLET 1000 MG PO (16:59)
[2024-12-05 17:05] LABS: Basophils Percent Auto 0.4 % (0.2-1.2); Eosinophils Percent Auto 0.1 % (0-4.4); Hematocrit 47.5 % (42.0-52.0); Hemoglobin 16.3 g/dL (14.0-18.0); Immature Granulocyte Absolute 0.06 K/mm3 (0.00-0.031); Immature Granulocyte Percent A 0.8 % (0-0.5); Lymphocytes Absolute Auto 1.08 K/mm3 (0.9-3.2); Lymphocytes Percent Auto 13.6 % (18.3-44.2); Mean Corpuscular HGB Conc 34.3 g/dl (32-36); Mean Corpuscular Hemoglobin 29.9 pg (26-34); Mean Corpuscular Volume 87.2 fl (80-100); Mean Platelet Volume 10.3 fl (7.4-10.4); Monocytes Absolute Auto 0.9 K/mm3 (0.1-0.6); Monocytes Percent Auto 11.2 % (2.6-8.5); Neutrophils Absolute Auto 5.9 K/mm3 (1.3-6.7); Neutrophils Percent Auto 73.9 % (45.5-73.1); Platelet Count Result 145 k/mm3 (150-375); Red Blood Count 5.45 M/mm3 (4.6-6.20); Red Cell Distribution Width 14.1 % (11.5-14.5)
[2024-12-05 17:16] LABS: Alanine Aminotransferase 40 U/L (6-50); Albumin Level 4.3 g/dL (3.5-5.1); Alkaline Phosphatase 99 U/L (38-126); Anion Gap 10 mmol/L (4-12); Aspartate Amino Transferase 31 U/L (17-59); Bilirubin,Total 0.9 mg/dL (0.2-1.3); Blood Urea Nitrogen 19 mg/dL (9-20); Calcium 9.9 mg/dL (8.4-10.2); Carbon Dioxide 28 mmol/L (22-30); Chloride 100 mmol/L (98-107); Estimated CRCL calculation 37 ml/min; Estimated Glomerular Filt Rate 39; Glucose 121 mg/dL (65-110); Potassium 4.2 mmol/L (3.4-5.0); Sodium 138 mmol/L (137-145)
[2024-12-05 17:18] LABS: Prothrombin Time 13.3 Seconds (11.1-14.7)
[2024-12-05 17:19] LABS: Partial Thromboplastin Time 30.6 Seconds (22.3-36.8)
[2024-12-05 17:28] LABS: Troponin I < 0.012 ng/mL (0.000-0.034)
[2024-12-05 17:43] LABS: Influenza A QL RT-PCR Negative (Negative); Influenza B QL RT-PCR Negative (Negative); RSV RNA, RT-PCR Negative (Negative); SARS-CoV-2 RNA PCR Negative (Negative)
--- OUTSIDE RECORDS SUMMARY | 2024-12-05 18:59 | XMS_ITS | Encounter Summary ---
Author Organization [facility] Health Address [address] [place] [address] Care Team Providers Care Continuous Improvement Coach Name Role Phone Leonides Mcneil MD Primary Care Provider + William Peña MD Unavailable [phone] Greta Aldana Unavailable [phone] Encounter Details Date Type Department Care Team (Late st Contact Info) Description 11/18/2021 [facility] Outpatient Visit [facility] [id number] [place] [phone] [place] [id number] [phone] Social History Tobacco Use Types Packs/Day Years Used Date Smoking Tobacco: Never Smokeless Tobacco: Never Alcohol Use Standard Drinks/Week Comments No 0 (1 standard drink = 0.6 oz pur e alcohol) Sex and Gender Information Value Date Recorded Sex Assigned at Male 12/06/2021 8:05 AM DRIER TAKE OFF TENDER Gender Identity Male 12/06/2021 8:05 AM DRIER TAKE OFF TENDER Sexual Orientation Straight 12/06/2021 8: 05 AM DRIER TAKE OFF TENDER documented as of this encounter Functional Status [...] Description 01/11/2025 11:40 AM CDT Office Visit [facility] [address] [phone] [place] [address] [facility] [address] [phone] documented as of this encounter Visit Diagnoses Not on filedocumented in this encounter Care Teams Continuous Improvement Coach Relationship Specialty Start Date End Date Leonides Mcneil MD [address] [facility] [place] [address] PCP - General Family Medicine 01/14/17 [place]ña [place] [address] [phone] Monitoring Specialist/Oncologist Hematology and Oncology 06/07/21 Greta Aldana, BROACH OPERATOR-GRAVEL HAULER [address] [address] Advance Practice Nurse Hematology and Oncology 06/07/21 documented as of this encounter
--- OUTSIDE RECORDS SUMMARY | 2024-12-05 18:59 | XMS_ITS | Clinical Summary ---
Author Organization [facility] Address [address] [place] [address] Care Team Providers Care Sound Engineer Audio Control Name Role Phone Leonides Mcneil MD Primary [...] Department Care Team Description 11/30/2024 4:00 PM AUTOMATIC GLOVE [employer] FORMER Telemedicine [facility] Floor 1, [address] [place] [address] Ayden Martinez MD PhD Malignant neoplasm of overlapping sites of brain (HCC) (Primary Dx); Seizures (HCC); Stage 3 chronic kidney disease, unspecified whether stage 3a or 3b CKD (HCC) 11/28/2024 4:11 PM AUTOMATIC [employer]OVE [employer] FORMER - 11/28/2024 11:59 PM AUTOMATIC [employer]OVE [employer] FORMER Hospital Encounter [facility] [address] [place] [address] Malignant neoplasm of overlapping sites of brain (HCC) Discharge Disposition: Discharge to home or self care 11/11/2024 Social Work [facility] Floor 1, [address] [place] [address] Judith Campa, BURLAP SPREADER 11/07/2024 Social Work [facility] [address] [place] [address] Floor 1, [address] [place] [address] Judith Campa BURLAP SPREADER 10/29/2024 Orders Only [facility] Scanning, Provider 10/05/2024 9:20 AM AUTOMATIC [employer]OVE [employer] FORMER Office Visit [facility] Floor 1, [address] [place] [address] Ayden Martinez MD PhD Malignant neoplasm of overlapping sites of brain (HCC) (Primary Dx) 10/05/2024 8:45 AM AUTOMATIC GLOVE [employer]NER [employer] FORMER Lab [facility] - Lab Collection [address] [place] [address] Floor 5 [place] [address] Malignant neoplasm of overlapping sites of brain (HCC) 10/05/2024 8:30 AM AUTOMATIC GLOVE [employer]NER AND FORMER Lab [facility] [address] [place] [address] 5 [place] [address] Malignant neoplasm of overlapping sites of brain (HCC) 09/08/2024 Social Work [facility] [address] [place] [address] Floor 1, [address] [place] [phone] Judith Campa LCSW 09/08/2024 Orders Only [facility] [address] [place] [address] 1, [address] [place] [phone] Evelyn Bustillo Malignant neoplasm of overlapping sites [...] on file Legal Sex Male 9:31 AM AUTOMATIC [employer]OVE [employer] FORMER Gender Identity Not on file Sexual Orientation Straight 12/19/2021 11 :33 AM AUTOMATIC [employer]OVE [employer] FORMER Obstetrics History Last Filed Vital Signs Vital Sign Reading Time Taken Comments Blood Pressure 151/86 10/05/2024 8:38 AM AUTOMATIC [employer] FORMER Pulse 73 10/05/2024 8:38 AM [employer] FORMER Temperature 36.9 C (98.4 F) 10/05/2024 8:38 AM AUTOMATIC [employer]OVE [employer] FORMER Respiratory Rate 17 10/05/2024 8:38 AM AUTOMATIC [employer]OVE [employer] FORMER Oxygen Saturation 95% 10/05/2024 8:38 AM AUTOMATIC [employer]OVE [employer] FORMER Inhaled Oxygen Concentration - - Weight 81.6 kg (180 lb) 11/28/2024 4:20 PM [employer]OM[employer] FORMER Height 172.7 cm (5' 8 ) 11/28/2024 4:20 PM AUTOMATIC [employer]OVE [employer] FORMER Body Mass Index 27.37 11/28/2024 4:20 PM AUTOMATIC [employer]OVE [employer] FORMER Plan of Treatment Health Maintenance Due Date [...] (Appt Today, Awaiting Results) 11/28/2024 5:13 PM AUTOMATIC [employer] FORMER Malignant neoplasm of overlapping sites of brain (HCC) GAMMA GT Routine 10/29/2024 8:42 AM AUTOMATIC [employer]OVE [employer] FORMER Malignant neoplasm of overlapping sites of brain (HCC) CBC WITH AUTO DIFFERENTIAL Routine 10/29/2024 8:42 AM AUTOMATIC [employer] FORMER Malignant neoplasm of overlapping sites of brain (HCC) COMPREHENSIVE METABOLIC PANEL STAT 10/29/2024 8:42 AM AUTOM[employer] FORMER Malignant neoplasm of overlapping sites of brain (HCC) SCAN - LABS 10/29/2024 EGFR STAT 10/05/2024 8:33 AM AUTOMATIC [employer] FORMER Malignant neoplasm of overlapping sites of brain (HCC) DIFFERENTIAL AUTO Routine 10/05/2024 8:3 3 AM AUTOMATIC [employer] FORMER Malignant neoplasm of overlapping sites of brain (HCC) COMPREHENSIVE METABOLIC PANEL STAT 10/05/2024 8:33 AM AUTOMATIC [employer]OVE [employer] FORMER Malignant neoplasm of overlapping sites of brain (HCC) CBC WITH AUTO DIFFERENTIAL Routine 10/05/2024 8:33 AM AUTOMATIC [employer]OVE [employer] FORMER Malignant neoplasm of overlapping sites of brain (HCC) GAMMA GT Routine 10/05/2024 8:33 AM AUTOMATIC [employer]OVE [employer] FORMER Malignant neoplasm of overlapping sites of brain (HCC) from Last 3 Months Results * MRI Brain W WO Contrast (11/28/2024 5:13 PM AUTOMATIC [employer] FORMER) Anatomical Region Laterality Modality Head and Neck N/A Magnetic Resonan ce 11/29/2024 9:4 9 AM AUTOMATIC [employer] FORMER Impressions 11/29/2024 1:06 PM AUT[employer] FORMER Postsurgical changes of left frontotemporal craniotomy for [...] Abdon Maldonado M.D. Narrative 11/29/2024 1:06 PM [employer]OMAT[employer]OVE [employer] FORMER EXAMINATION: Magnetic resonance imaging (MRI) of the [...] it. Electronically signed by: Abdon Maldonado M.D. [facility] MD PhD IMG MRI PROCEDURES Final Result * (ABNORMAL) CBC with auto differential (10/29/2024 8:42 AM AUTOMATIC [employer]OVE [employer] FORMER) WBC 5.6 3.8 - 10.8 Thousand/u L [...] Diagnostics-S t [facility] Blood 10/29/2024 8:42 AM AUTOMATIC [employer]OVE [employer] AND FORMER 10/29/2024 10:29 AM [employer]OM[employer] FORMER Ayden Martinez MD PhD LAB BLOOD ORDERABL ES Final Result Performing Organization Address [facility]/ZIP Co de Phone Number [facility] [address] [place] [address] * Gamma GT (10/29/2024 8:42 AM AUTOMATIC [employer]OVE [employer] FORMER) Pathologist [facility] GGT 36 3 - 70 U/L [facility] Blood 10/29/2024 8:42 AM AUTOMATIC GLOVE [employer]NER AND FORMER 10/29/2024 10:29 AM AUTOMATIC [employer] FORMER Ayden Martinez MD PhD LAB BLOOD ORDERABL ES Final Result Performing Organization Address [facility]/ZIP Co de Phone Number [facility] [address] [place] [address] * (ABNORMAL) Comprehensive metabolic panel (10/29/2024 8:42 AM AUTOMATIC [employer]OVE [employer] FORMER) Glucose 156(H) 65 - 99 mg/dL [facility] Comment: Fasting reference interval For someone without known diabetes, a glucose value >125 mg/dL indicates that they may have diabetes and this should be confirmed with a follow-up test. BUN 13 7 - 25 mg/dL [facility] Creatinine 1.83(H) 0.70 - 1.35 mg/dL [facility] eGFR 41(L) > OR = 60 [...] Calcium 9.7 8.6 - 10.3 mg/dL [facility] Protein, sr 6.5 6.1 - 8.1 g/dL [facility] Albumin 4.0 3.6 - 5.1 g/dL [facility] GLOBULIN 2.5 1.9 - 3.7 g/dL (calc) [facility]onaJ[facility] Alb/glob ratio 1.6 1.0 - 2.5 (calc) [facility] Bilirubin, total 0.3 0.2 - 1.2 mg/dL [facility] Alk phos 81 35 - 144 U/L [facility]en [facility]onaJagu[facility] AST 17 10 - 35 U/L Ruben CoronaJaguar [facility] ALT (SGPT) 32 9 - 46 U/L Ruben CoronaJagu[facility] Blood 10/29/2024 8:42 AM AUTOMATIC [employer]OVE [employer] AND FORMER 10/29/2024 10:29 AM AUTOMATIC [employer]OVE [employer] FORMER Ayden Martinez MD PhD LAB BLOOD ORDERABL ES Final Result RUBEN CoronaSt [facility]yn[facility] [address] [place] [address] * SCAN - LABS (10/29/2024) Provider Scanning Final Result * (ABNORMAL) eGFR (10/05/2024 8:33 AM AUTOMATIC [employer] FORMER) eGFR 45(L) >=60 mL/min/1. 73 m2 Comment: [...] last reviewed 2021. Blood 10/05/2024 8:33 AM AUTOMATIC [employer]OVE [employer] AND FORMER 10/05/2024 8:36 AM AUTOMATIC [employer]OVE [employer] FORMER Ayden Martinez MD PhD LAB BLOOD ORDERABL ES Final Result [facility] [place] [address] * Differential, auto (10/05/2024 8:33 AM AUTOMATIC [employer]OVE [employer] FORMER) Neutrophil abs 3.1 1.5 - 6.5 K/cumm Comment:Testing performed by : [facility], [address] [place] [phone] Lymphocyte abs 1.4 0.8 - 3.3 K/cumm [facility] Comment:Testing performed by : [facility], [address] [place] [phone] Monocyte abs 0.4 0.2 - 0.8 K/cumm [facility] Comment:Testing performed by : [facility], [address] [place] [phone] Eosinophil abs 0.1 0.0 - 0.5 K/cumm [facility] Comment:Testing performed by : [facility], [address] [place] [phone] Basophil abs 0.1 0.0 - 0.1 K/cumm [facility] Comment:Testing performed by : [facility], [address] [place] [phone] Neutrophil pct 60.9 % [facility] Comment: Interpretive Data Percent cell count reference ranges are not reported, since discordance with absolute values may lead to misinterpretation of CBC data. Current Interpretive Data was last revised on 2018. Testing performed by: [facility], [address] [place] [phone] Lymphocyte pct 27.6 % [facility] Comment: Interpretive Data Percent cell count reference ranges are not reported, since discordance with absolute values may lead to misinterpretation of CBC data. Current Interpretive Data was last revised on 2018. Testing performed by: [facility], [address] [place] [address] Monocyte pct 8.0 % [facility] Comment: Interpretive Data Percent cell count reference ranges are not reported, since discordance with absolute values may lead to misinterpretation of CBC data. Current Interpretive Data was last revised on 2018. Testing performed by: [facility], [address] [place] [phone] Eosinophil pct 2.0 % [facility] Comment: Interpretive Data Percent cell count reference ranges are not reported, since discordance with absolute values may lead to misinterpretation of CBC data. Current Interpretive Data was last revised on 2018. Testing performed by: [facility], [address] [place] [phone] Basophil pct 1.5 % [facility] Comment: Interpretive Data Percent cell count reference ranges are not reported, since discordance with absolute values may lead to misinterpretation of CBC data. Current Interpretive Data was last revised on 2018. Testing performed by: [facility], [address] [place] [phone] Blood 10/05/2024 8:33 AM AUTOMATIC [employer]OVE [employer] AND FORMER 10/05/2024 8:35 AM AUTOMATIC [employer]OVE [employer] AND FORMER us Ayden Martinez MD PhD LAB BLOOD ORDERABL ES Final Result [facility] One [facility] [place] [address] * CBC with auto differential (10/05/2024 8:33 AM AUTOMATIC [employer]OVE [employer] AND FORMER) WBC 5.1 3.8 - 9.9 K/cumm Comment:Testing performed by : [facility], [address] [place] [address] Hgb 15.5 13.0 - 17.5 g/dL [facility] Comment:Testing performed by : [facility], [address] [place] [address] Hct 46.4 38.9 - 50.3 % [facility] Comment:Testing performed by : [facility], [address] [place] [address] Plt 177 150 - 400 K/cumm [facility] Comment:Testing performed by : [facility], [address] [place] [address] MPV 8.4 6.8 - 10.4 fL CERDONI BJ Comment:Testing performed by : [facility], [address] [place] [address] RBC 5.34 4.30 - 5.80 M/cumm [facility] Comment:Testing performed by : [facility], [address] [place] [address] MCV 86.9 81.3 - 96.4 fL CERDON[facility]J Comment:Testing performed by : [facility], [address] [place] [address] MCH 28.9 27.1 - 33.3 pg [facility] Comment:Testing performed by : [facility], [address] [place] [address] MCHC 33.3 32.3 - 35.7 g/dL [facility] Comment:Testing performed by : [facility], [address] [place], [place] [phone] RDW CV 14.6 11.1 - 14.9 % [facility] Comment:Testing performed by : [facility], [address] [place] [phone] NRBC abs 0.00 0.00 - 0.01 K/cumm [facility] Comment:Testing performed by : [facility], [address] [place] [phone] Blood 10/05/2024 8:33 AM AUTOMATIC [employer] FORMER 10/05/2024 8:35 AM AUTOMATIC [employer] FORMER Ayden Martinez MD PhD LAB BLOOD ORDERABL ES Final Result Performing Organization Address City/[facility]/ZIP Co de Phone Number [facility] Department [place] [address] * Gamma GT (10/05/2024 8:33 AM AUTOMATIC GLOVE [employer]NER AND FORMER) [facility] GGT 41 10 - 50 Units/L Blood 10/05/2024 8:33 AM AUTOMATIC [employer]OVE [employer]NER AND FORMER 10/05/2024 8:36 AM AUTOMATIC [employer] FORMER Ayden Martinez MD PhD LAB BLOOD ORDERABL ES Final Result Performing Organization Address [facility] de Phone Number [facility] Department [place] [address] * (ABNORMAL) Comprehensive metabolic panel (10/05/2024 8:33 AM AUTOMATIC [employer]OVE [employer] AND FORMER) [facility] Sodium 142 135 - 145 mmol/L Potassium, pl 4.3 3.3 - 4.9 mmol/L [facility] Chloride 105 97 - 110 mmol/L [facility] CO2 34(H) 22 - 32 mmol/L [facility] Anion gap 3 2 - 15 mmol/L [facility] BUN 13 6 - 25 mg/dL [facility] Creatinine 1.68(H) 0.80 - 1.30 mg/dL [facility] Glucose 161 70 - 199 mg/dL [facility] Comment: Interpretive Data Fasting glucose >/= 126 [...] [facility] Blood 10/05/2024 8:33 AM AUTOMATIC [employer]OVE [employer] AND FORMER 10/05/2024 8:36 AM AUTOMATIC [employer]OVE [employer] AND FORMER Ayden Martinez MD PhD LAB BLOOD ORDERABL ES Final Result [facility] One [facility] [place] [address] from Last 3 Months Insurance [facility] MEDICARE [facility] Member Subscriber Plan / Payer (Ef fective 2020-Present) Name:Henrry Owen Relation to Subscriber:Self Name:Henrry Owen Payer ID:[id number] (NAIC) Type:MEDICARE RISK OTHER Address[facility] [address] [facility] [address] [facility] Advance Directives For more information, please contact: [phone] Documents on File Type Date Recorded Patient Machine Lay Out Worker Expl anation Power of Community Fundraiser 06/23/2023 11:36 AM ADVANCE DIRECTIVE 01/09/2022 9:50 AM Power of Community Fundraiser-Medical * Full Code (Latest Code Status on File) Date Activated Date Inactivated Comments 06/24/2023 4:31 AM 06/25/2023 9:14 PM * Full Code Date Activated Date Inactivated Comments 01/27/2023 9:00 PM 01/30/2023 3:30 PM Care Teams Sound Engineer Audio Control Relationship Specialty Start Date End Date Leonides Mcneil MD [address] [place] [address] PCP - General 10/02/17 Kailey Corrales MD [address] [facility] # [address] LL [address] [place] [address] Radiation Oncologist Radiation Oncology 10/01/22 Ayden Martinez MD PhD [address] [facility] [address] [place] [address] Medical Oncologist/Small Arms Repairer Medical Oncology 10/01/22
--- OUTSIDE RECORDS SUMMARY | 2024-12-05 18:59 | XMS_ITS ---
Author Organization [facility] Address [facility] [place] [address] Care Team Providers Care Laborer Chemical Processing Name Role Phone Leonides Mcneil MD Primary [...] MD PhD 2 of 6 cycles started [id number] - [facility] - Brain - [id number] - Expansion Phase - [id number] 09/03/2022 [facility] [id number] (/[id number]) Progressive Disease Ayden Martinez MD PhD [...]
--- OUTSIDE RECORDS SUMMARY | 2024-12-05 18:59 | XMS_ITS ---
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 Past Plans ONCOLOGY TREATMENT Plan Name Start Date Discontinue Date Treatment Medications Discontinue Reason Plan Provider Cycles ACETYLENE GAS COMPRESSOR (TEMOZOLAMIDE) CONCOMITANT PARTIAL PROTOCOL TO BE FOLLOWED BY MAINTENANCE TEMOZOLAMIDE 8 10/24/2019 temozolomide (Temodar) Therapy Complete Chinedu Molina MD 1 of 1 cycle started Radiation Treatments * No radiation treatments are documented for this patient in [facility]. Treatments may have been administered in another system. 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
--- OUTSIDE RECORDS SUMMARY | 2024-12-05 18:59 | XMS_ITS | Referral Summary ---
Author Organization [facility] Address [address] [place] [address] Care Team Providers Care Rfid Systems Engineer Name Role Phone Leonides Mcneil MD Primary Care Provider + William Peña MD Unavailable [phone] Greta Aldana APRN-PREPARATION ROOM MANAGER Unavailable Source Comments [facility],non-owned Affiliates and Associated Physician Practices is amultiple site organization consisting of ambulatory clinics and hospital sitesin [place], [place], [place] and [place]. This disclosure is being madepursuant to the Care Everywhere program and may not contain all information available regarding this patient. Last updated 18.[facility] Allergies Active Allergy Reactions Criticality Noted [...] Sex Assigned at Male 12/06/2021 8:05 AM PATHOLOGY SECRETARY Gender Identity Male 12/06/2021 8:05 AM PATHOLOGY SECRETARY Sexual Orientation Straight 12/06/2021 8: 05 AM PATHOLOGY SECRETARY Last Filed Vital Signs Vital Sign Reading Time Taken Comments Blood Pressure 150/86 12/18/2021 2:33 PM PATHOLOGY SECRETARY Pulse 71 12/18/2021 2:33 PM PATHOLOGY SECRETARY Temperature 36.2 C (97.1 F) 12/18/2021 2:33 PM PATHOLOGY SECRETARY Respiratory Rate 16 05/26/2022 2:18 PM CDT Oxygen Saturation 99% 12/18/2021 2:33 PM PATHOLOGY SECRETARY RA Inhaled Oxygen Concentration - - Weight [...] Description 01/11/2025 11:40 AM CDT Office Visit [facility] [address] [facility] [address] [place] [address] [place] [address] [facility] [address] [place] [phone] Medical Devices Implanted Type Area Audiometrist Device Identifier Shelf Expiration Date Model / Serial / Lot Plate Med Mdfc 2 Hl Strg 1.5mm Scr Bn Ti Implanted:Qty: 4 on 11/11/2017 by Hayden Barone MD at [facility] [employer] [id number] / / Elliot Screw Cartridge 4.0 Implanted:Qty: 2 on 11/11/2017 by Hayden Barone MD at [facility] [id number] / / Description:8 screws used Graft Tissue Drgn + Bvn Clgn Mtrx 1x1in Implanted:Qty: 1 on 11/11/2017 by Hayden Barone MD at [facility] Left: Cranial Integra [employer] 01/24/2020 [id number] / / [id number] Dev Clsr Aaron Duraseal Dura Pg Slnt Sys 5 Implanted:Qty: 1 on 11/11/2017 by Hayden Barone MD at [facility] Left: Cranial Integra [employer] Alex 10/25/2019 [id number] / / Procedures Procedure Name Priority Date/Time [...] Resulting Agency Comment Lab [facility] performed at: [facility] [address] [facility] [id number] Hayden Finley MD LAB - CHEMISTRY [facility]NA [facility] INSURANCE BILL [address] [place] [address] from Last 3 Months or Most Recently Relevant to Health Maintenance Advance Directives * Full Code (Latest Code Status on File) Date Activated Date Inactivated Comments 11/14/2017 7:58 AM 11/21/2017 11:28 AM * Full Code Date Activated Date Inactivated Comments 11/11/2017 1:49 PM 11/13/2017 5:06 PM * Full Code Date Activated Date Inactivated Comments 10/12/2017 1:05 PM 10/16/2017 2:52 PM Care Teams Rfid Systems Engineer Relationship Specialty Start Date End Date Leonides Mcneil MD [address] [address] PCP - General Family Medicine 01/14/17 [place] Peña [place] [address] [phone] Park Interpreter/Oncologist Hematology and Oncology 06/07/21 Greta Aldana, LONGITUDINAL FLOAT OPERATOR-PREPARATION ROOM MANAGER [address] [address] Advance Practice Nurse Hematology and Oncology 06/07/21
--- OUTSIDE RECORDS SUMMARY | 2024-12-05 18:59 | XMS_ITS | Referral Summary ---
Author Organization [facility] Address [address] [place] [address] Care Team Providers Care Insulation Engineman Name Role Phone Leonides Mcneil MD Primary Care Prov ider Kailey Corrales MD Unavailable Ayden Martinez MD PhD Unavailable + Encounters Date Type Department Care Team Description 11/30/2024 4:00 PM YOKE SETTER Telemedicine [facility] [address] [place] [address] Floor 1, [address] [place] [address] Ayden Martinez, PhD Malignant neoplasm of overlapping sites of brain (HCC) (Primary Dx); Seizures (HCC); Stage 3 chronic kidney disease, unspecified whether stage 3a or 3b CKD (HCC) 11/28/2024 4:11 PM YOKE SETTER - 11/28/2024 11:59 PM YOKE SETTER Hospital Encounter [facility] [address] [place] [address] Malignant neoplasm of overlapping sites of brain (HCC) Discharge Disposition: Discharge to home or self care 11/11/2024 [facility] [address] [place] [address] Floor 1, [address] [place] [phone] Judith Campa LCSW 11/07/2024 Social Work [facility] [address] [place] [address] Floor 1, [address] [place] [phone] Judith Campa LCSW 10/29/2024 Orders Only [facility] Scanning, Provider 10/05/2024 8:45 AM YOKE SETTER Lab [facility] - [facility] [address] [facility] [address] [place] [address] Malignant neoplasm of overlapping sites of brain (HCC) 10/05/2024 8:30 AM YOKE SETTER Lab [facility] [address] [facility] Floor 5 [place] [address] Malignant neoplasm of overlapping sites of brain (HCC) 10/05/2024 9:20 AM YOKE SETTER Office Visit [facility] [address] [place] [address] Floor 1, [address] [place] [address] Ayden Martinez MD PhD Malignant neoplasm of overlapping sites of brain (HCC) (Primary Dx) 09/08/2024 Social Work [facility] [address] [place] [address] Floor 1, [address] [place] [address] Judith Campa LCSW 09/08/2024 Orders Only [facility] [address] [place] [address] Floor 1, [address] [place] [address] Evelyn Bustillo Malignant neoplasm of overlapping sites [...] on file Legal Sex Male 9:31 AM YOKE SETTER Gender Identity Not on file Sexual Orientation Straight 12/19/2021 11 :33 AM YOKE SETTER Last Filed Vital Signs Vital Sign Reading Time Taken Comments Blood Pressure 151/86 10/05/2024 8:38 AM YOKE SETTER Pulse 73 10/05/2024 8:38 AM YOKE SETTER Temperature 36.9 C (98.4 F) 10/05/2024 8:38 AM YOKE SETTER Respiratory Rate 17 10/05/2024 8:38 AM YOKE SETTER Oxygen Saturation 95% 10/05/2024 8:38 AM YOKE SETTER Inhaled Oxygen Concentration - - Weight 81.6 kg (180 lb) 11/28/2024 4:20 PM YOKE SETTER Height 172.7 cm (5' 8 ) 11/28/2024 4:20 PM YOKE SETTER Body Mass Index 27.37 11/28/2024 4:20 PM YOKE SETTER Plan of Treatment Not on file Procedures Procedure Name Priority Date/Time Associated Diagnosis Comments MRI BRAIN W WO CONTRAST Schedule LENNOX, Read LENNOX (Appt Today, Awaiting Results) 11/28/2024 5:13 PM YOKE SETTER Malignant neoplasm of overlapping sites of brain (HCC) GAMMA GT Routine 10/29/2024 8:42 AM YOKE SETTER Malignant neoplasm of overlapping sites of brain (HCC) CBC WITH AUTO DIFFERENTIAL Routine 10/29/2024 8:42 AM YOKE SETTER Malignant neoplasm of overlapping sites of brain (HCC) COMPREHENSIVE METABOLIC PANEL STAT 10/29/2024 8:42 AM YOKE SETTER Malignant neoplasm of overlapping sites of brain (HCC) SCAN - LABS 10/29/2024 EGFR STAT 10/05/2024 8:33 AM YOKE SETTER Malignant neoplasm of overlapping sites of brain (HCC) DIFFERENTIAL AUTO Routine 10/05/2024 8:3 3 AM YOKE SETTER Malignant neoplasm of overlapping sites of brain (HCC) COMPREHENSIVE METABOLIC PANEL STAT 10/05/2024 8:33 AM YOKE SETTER Malignant neoplasm of overlapping sites of brain (HCC) CBC WITH AUTO DIFFERENTIAL Routine 10/05/2024 8:33 AM YOKE SETTER Malignant neoplasm of overlapping sites of brain (HCC) GAMMA GT Routine 10/05/2024 8:33 AM YOKE SETTER Malignant neoplasm of overlapping sites of brain (HCC) from Last 3 Months Results * MRI Brain W WO Contrast (11/28/2024 5:13 PM YOKE SETTER) Anatomical Region Laterality Modality Head and Neck N/A Magnetic Resonan ce 11/29/2024 9:49 AM YOKE SETTER Impressions 11/29/2024 1:06 PM YOKE SETTER Postsurgical changes of left frontotemporal craniotomy [...] Abdon Maldonado M.D. Narrative 11/29/2024 1:06 PM YOKE SETTER EXAMINATION: Magnetic resonance imaging (MRI) of [...] CBC with auto differential (10/29/2024 8:42 AM YOKE SETTER) [facility] WBC 5.6 3.8 - [...] [facility] Blood 10/29/2024 8:42 AM YOKE SETTER 10/29/2024 10:29 AM YOKE SETTER Ayden Martinez MD PhD LAB BLOOD ORDERABL ES Final Result [facility] [address] [place] [address] * Gamma GT (10/29/2024 8:42 AM YOKE SETTER) Pathologist [facility] GGT 36 3 - 70 U/L [facility] Blood 10/29/2024 8:42 AM YOKE SETTER 10/29/2024 10:29 AM YOKE SETTER Ayden Martinez MD PhD LAB BLOOD ORDERABL ES Final Result [facility] [address] [place] [address] * (ABNORMAL) Comprehensive metabolic panel (10/29/2024 8:42 AM YOKE SETTER) Pathologist [facility] Glucose 156(H) 65 - 99 mg/dL [facility] Comment: Fasting reference interval For someone without known diabetes, a glucose value >125 mg/dL indicates that they may have diabetes and this should be confirmed with a follow-up test. BUN 13 7 - 25 mg/dL [facility] Creatinine 1.83(H) 0.70 - 1.35 mg/dL [facility] eGFR 41(L) > OR = 60 mL/min/1.7 3m2 [facility] BUN/creat ratio 7 6 - 22 (calc) [facility] Sodium 137 135 - 146 mmol/L [facility] Potassium, pl 4.0 3.5 - 5.3 mmol/L [facility] Chloride 102 98 - 110 mmol/L [facility] CO2 30 20 - 32 mmol/L [facility] Calcium 9.7 8.6 - 10.3 mg/dL [facility] Protein, sr 6.5 6.1 - 8.1 g/dL [facility] Albumin 4.0 3.6 - 5.1 g/dL [facility] GLOBULIN 2.5 1.9 - 3.7 g/dL (calc) [facility] Alb/glob ratio 1.6 1.0 - 2.5 (calc) [facility] Bilirubin, total 0.3 0.2 - 1.2 mg/dL [facility] Alk phos 81 35 - 144 U/L [facility] AST 17 10 - 35 U/L [facility] ALT (SGPT) 32 9 - 46 U/L [facility] Blood 10/29/2024 8:42 AM YOKE SETTER 10/29/2024 10:29 AM YOKE SETTER us Ayden Martinez MD PhD LAB BLOOD ORDERABL ES Final Result Performing Organization Address [facility]/ZIP Co de Phone Number [facility] [address] [place] [address] * SCAN - LABS (10/29/2024) us Provider Scanning Final Result * (ABNORMAL) eGFR (10/05/2024 8:33 AM YOKE SETTER) eGFR 45(L) >=60 mL/min/1. 73 m2 [...] last reviewed 2021. Blood 10/05/2024 8:33 AM YOKE SETTER 10/05/2024 8:36 AM YOKE SETTER us Ayden Martinez MD PhD LAB BLOOD ORDERABL ES Final Result RENE GARCIA [facility] Department [place] [address] * Differential, auto (10/05/2024 8:33 AM YOKE SETTER) Neutrophil abs 3.1 1.5 - 6.5 K/cumm Comment:Testing performed by : [facility], [address] [place] [phone] Lymphocyte abs 1.4 0.8 - 3.3 K/cumm C[facility] BJ Comment:Testing performed by : [facility], [address] [place] [phone] Monocyte abs 0.4 0.2 - 0.8 K/cumm [facility] BJ Comment:Testing performed by : [facility], [address] [place] [phone] Eosinophil abs 0.1 0.0 - 0.5 K/cumm [facility] BJ Comment:Testing performed by : [facility], [address] [place] [phone] Basophil abs 0.1 0.0 - 0.1 K/cumm C[facility] BJ Comment:Testing performed by : [facility], [address] [place] [phone] Neutrophil pct 60.9 % [facility] Comment: Interpretive Data Percent cell count reference ranges are not reported, since discordance with absolute values may lead to misinterpretation of CBC data. Current Interpretive Data was last revised on 2018. Testing performed by: [facility], [address] [place] [phone] Lymphocyte pct 27.6 % [facility] Comment: Interpretive Data Percent cell count reference ranges are not reported, since discordance with absolute values may lead to misinterpretation of CBC data. Current Interpretive Data was last revised on 2018. Testing performed by: [facility], [address] [place] [phone] Monocyte pct 8.0 % [facility] Comment: Interpretive Data Percent cell count reference ranges are not reported, since discordance with absolute values may lead to misinterpretation of CBC data. Current Interpretive Data was last revised on 2018. Testing performed by: [facility], [address] [place] [phone] Eosinophil pct 2.0 % RENE GARCIA Comment: Interpretive Data Percent cell count reference ranges are not reported, since discordance with absolute values may lead to misinterpretation of CBC data. Current Interpretive Data was last revised on 2018. Testing performed by: [facility], [address] [place] [address] Basophil pct 1.5 % RENE GARCIA Comment: Interpretive Data Percent cell count reference ranges are not reported, since discordance with absolute values may lead to misinterpretation of CBC data. Current Interpretive Data was last revised on 2018. Testing performed by: [facility], [address] [place] [address] Blood 10/05/2024 8:33 AM YOKE SETTER 10/05/2024 8:35 AM YOKE SETTER us Ayden Martinez MD PhD LAB BLOOD ORDERABL ES Final Result [facility] Department of Laboratories [place], [place] [id number] * CBC with auto differential (10/05/2024 8:33 AM YOKE SETTER) WBC 5.1 3.8 - 9.9 K/cumm Comment:Testing performed by : [facility], [address] [place] [address] Hgb 15.5 13.0 - 17.5 g/dL RENE GARCIA Comment:Testing performed by : [facility], [address] [place] [address] Hct 46.4 38.9 - 50.3 % RENE GARCIA Comment:Testing performed by : [facility], [address] [place] [address] Plt 177 150 - 400 K/cumm RENE GARCIA Comment:Testing performed by : [facility], [address] [place], [place] [id number] MPV 8.4 6.8 - 10.4 fL RENE GRACIA Comment:Testing performed by : [facility], [address] [place], [place] [id number] RBC 5.34 4.30 - 5.80 M/cumm RENE GARCIA Comment:Testing performed by : [facility], [address] [place], [place] [id number] MCV 86.9 81.3 - 96.4 fL RENE GARCIA Comment:Testing performed by : [facility], [address] [place], [place] [id number] MCH 28.9 27.1 - 33.3 pg RENE GARCIA Comment:Testing performed by : [facility], [address] [place], [place] [id number] MCHC 33.3 32.3 - 35.7 g/dL RENE GARCIA Comment:Testing performed by : [facility], [address] [place], [place] [id number] RDW CV 14.6 11.1 - 14.9 % [facility] Comment:Testing performed by : [facility], [address] [place], [place] [id number] NRBC abs 0.00 0.00 - 0.01 K/cumm RENE GARCIA Comment:Testing performed by : [facility], [address] [place], [place] [id number] Blood 10/05/2024 8:33 AM YOKE SETTER 10/05/2024 8:35 AM YOKE SETTER us Ayden Martinez MD PhD LAB BLOOD ORDERABL ES Final Result RENE GARCIA [facility] Department [place] [address] * Gamma GT (10/05/2024 8:33 AM YOKE SETTER) GGT 41 10 - 50 Units/L Blood 10/05/2024 8:33 AM YOKE SETTER 10/05/2024 8:36 AM YOKE SETTER us Ayden Martinez MD PhD LAB BLOOD ORDERABL ES Final Result [facility] Department [place] [address] * (ABNORMAL) Comprehensive metabolic panel (10/05/2024 8:33 AM YOKE SETTER) Sodium 142 135 - 145 mmol/L Potassium, pl 4.3 3.3 - 4.9 mmol/L [facility] Chloride 105 97 - 110 mmol/L [facility] CO2 34(H) 22 - 32 mmol/L [facility] Anion gap 3 2 - 15 mmol/L [facility] BUN 13 6 - 25 mg/dL [facility] Creatinine 1.68(H) 0.80 - 1.30 mg/dL [facility] Glucose 161 70 - 199 mg/dL [facility] Comment: Interpretive Data Fasting glucose >/= [...] Calcium 9.6 8.5 - 10.3 mg/dL [facility] Bilirubin, total 0.3 0.1 - 1.2 mg/dL [facility] Protein, pl 6.7 6.5 - 8.5 g/dL [facility] Albumin 4.0 3.5 - 5.0 g/dL [facility] Alk phos 93 40 - 130 Units/L [facility] ALT 32 7 - 55 Units/L [facility] AST 20 10 - 50 Units/L [facility] Blood 10/05/2024 8:33 AM YOKE SETTER 10/05/2024 8:36 AM YOKE SETTER Ayden Martinez MD PhD LAB BLOOD ORDERABL ES Final Result [facility] [place] [address] from Last 3 Months Insurance [facility] MEDICARE [facility] Advance Directives For more information, please contact: [phone] Documents on File Type Date Recorded Patient Landscaping Specialist Expl anation Power of Manga Artist 06/23/2023 11:36 AM ADVANCE DIRECTIVE 01/09/2022 9:50 AM Power of Manga Artist-Medical * Full Code (Latest Code Status on File) Date Activated Date Inactivated Comments 06/24/2023 4:31 AM 06/25/2023 9:14 PM * Full Code Date Activated Date Inactivated Comments 01/27/2023 9:00 PM 01/30/2023 3:30 PM Care Teams Insulation Engineman Relationship Specialty Start Date End Date Leonides Mcneil MD [address] [facility] [place] [address] PCP - General 10/02/17 Kailey Corrales MD [address] [facility] [address] [place] [address] Radiation Oncologist Radiation Oncology 10/01/22 Ayden Martinez MD PhD [address] [facility] [address] [place] [address] Medical Oncologist/Client Liaison Medical Oncology 10/01/22
--- OUTSIDE RECORDS SUMMARY | 2024-12-05 18:59 | XMS_ITS | Clinical Summary ---
Author Organization [facility] Address [address] [facility] [place] [address] Care Team Providers Care Metallurgical Or Materials Technician Name Role Phone Leonides Mcneil MD Primary Care Provider + William Peña MD Unavailable [phone] Greta Aldana APRN-RECORD MAKER Unavailable Source Comments [facility],non-owned Affiliates and Associated Physician Practices is amultiple site organization consisting of ambulatory clinics and hospital sitesin [place], [place], [place] and [place]. This disclosure is being madepursuant to the Care Everywhere program and may not contain all information available regarding this patient. Last updated 18.[facility] Allergies Active Allergy Reactions Criticality [...] Sex Assigned at Male 12/06/2021 8:05 AM SAMMYING MACHINE OPERATOR Gender Identity Male 12/06/2021 8:05 AM SAMMYING MACHINE OPERATOR Sexual Orientation Straight 12/06/2021 8: 05 AM SAMMYING MACHINE OPERATOR Last Filed Vital Signs Vital Sign Reading Time Taken Comments Blood Pressure 150/86 12/18/2021 2:33 PM SAMMYING MACHINE OPERATOR Pulse 71 12/18/2021 2:33 PM SAMMYING MACHINE OPERATOR Temperature 36.2 C (97.1 F) 12/18/2021 2:33 PM SAMMYING MACHINE OPERATOR Respiratory Rate 16 05/26/2022 2:18 PM CDT Oxygen Saturation 99% 12/18/2021 2:33 PM SAMMYING MACHINE OPERATOR RA Inhaled Oxygen Concentration - - Weight 81.6 kg (180 lb) 01/13/2024 11:35 AM CDT Height 170.2 cm (5' 7 ) 01/13/2024 11:35 AM CDT Body Mass Index 28.19 01/13/2024 11:35 AM CDT Plan of Treatment Upcoming Encounters Date Type Department Care Team (Late st Contact Info) Description 01/11/2025 11:40 AM CDT Office Visit [facility] [address] [facility] [address] [place] [address] [place] [address] [facility] [address] [place] [address] Health Maintenance Due Date Last [...] this topic Medical Devices Implanted Type Area Warehouse Receiving Supervisor Device Identifier Shelf Expiration Date Model / Serial / Lot Plate Med Mdfc 2 Hl Strg 1.5mm Scr Bn Ti Implanted:Qty: 4 on 11/11/2017 by Hayden Barone MD at [facility] [employer] [id number] / / Lorenze Screw Cartridge 4.0 Implanted:Qty: 2 on 11/11/2017 by Hayden Barone MD at [facility] [id number] / / Description:8 screws used Graft Tissue Drgn + Bvn Clgn Mtrx 1x1in Implanted:Qty: 1 on 11/11/2017 by Hayden Barone MD at [facility] Left: Cranial Integra [employer] 01/24/2020 [id number] / / [id number] Dev Clsr Aaron Duraseal Dura Pg Slnt Sys 5 Implanted:Qty: 1 on 11/11/2017 by Hayden Barone MD at [facility] Left: Cranial Integra [employer] Alex 10/25/2019 [id number] / / Procedures Procedure Name Priority Date/Time [...] Resulting Agency Comment [facility] [address] [facility] [id number] Hayden Finley MD LAB - CHEMISTRY [facility]NA [facility] INSURANCE BILL [address] [place] [address] from Last 3 Months or Most Recently Relevant to Health Maintenance Advance Directives * Full Code (Latest Code Status on File) Date Activated Date Inactivated Comments 11/14/2017 7:58 AM 11/21/2017 11:28 AM * Full Code Date Activated Date Inactivated Comments 11/11/2017 1:49 PM 11/13/2017 5:06 PM * Full Code Date Activated Date Inactivated Comments 10/12/2017 1:05 PM 10/16/2017 2:52 PM Care Teams Metallurgical Or Materials Technician Relationship Specialty Start Date End Date Leonides Mcneil MD [address] [address] PCP - General Family Medicine 01/14/17 [place] Peña [place] [phone] [address] Relations Coordinator/Oncologist Hematology and Oncology 06/07/21 Greta Aldana, SUPERVISOR LIME-RECORD MAKER [address] [address] Advance Practice Nurse Hematology and Oncology 06/07/21
--- OUTSIDE RECORDS SUMMARY | 2024-12-05 18:59 | XMS_ITS | Clinical Summary ---
Author Organization [facility] Care Team Providers Care Fixed Assets Accountant Name Role Phone Unavailable Primary Care Provider [...]
--- OUTSIDE RECORDS SUMMARY | 2024-12-05 18:59 | XMS_ITS | Clinical Summary ---
Author Organization [facility] Address [address] [place] [address] Care Team Providers Care Structural Worker Name Role Phone Unavailable Primary Care Provider [...] Comments Blood Pressure 140/88 11/21/2017 7:20 AM MANAGER HUMAN RESOURCES Pulse 68 11/21/2017 7:20 AM MANAGER HUMAN RESOURCES Temperature 36.1 C (97 F) 11/21/2017 7:20 AM MANAGER HUMAN RESOURCES Respiratory Rate 18 11/21/2017 7:20 AM MANAGER HUMAN RESOURCES Oxygen Saturation 93% 11/21/2017 7:20 AM MANAGER HUMAN RESOURCES Inhaled Oxygen Concentration - - Weight 82.6 kg (182 lb) 11/13/2017 5:09 PM MANAGER HUMAN RESOURCES Height 172.7 cm (5' 8 ) 11/13/2017 5:09 PM MANAGER HUMAN RESOURCES Body Mass Index 27.67 11/13/2017 5:09 PM MANAGER HUMAN RESOURCES Plan of Treatment Not on file Advance Directives * Full Resuscitation (Latest Code Status on File) Date Activated Date Inactivated Comments 11/13/2017 5:54 PM 11/21/2017 1:19 PM
--- OUTSIDE RECORDS SUMMARY | 2024-12-05 18:59 | XMS_ITS | Patient Health Summary ---
Author Organization [facility] Address [address] [place] [address] Care Team Providers Care Kardex Clerk Name Role Phone Leonides Mcneil MD Primary Care Provider + William Peña MD Unavailable [phone] Greta Aldana APRN-DEDE Unavailable Note from [facility],non-owned Affiliates and Associated Physician Practices is amultiple site organization consisting of ambulatory clinics and hospital sitesin [place], [place], [place] and [place]. This disclosure is being madepursuant to the Care Everywhere program and may not contain all information available regarding this patient. Last updated 18.[facility] Allergies * Glimepiride(Rash) -Medium Criticality * Amlodipine [...] Sex Assigned at Male 12/06/2021 8:05 AM PROGRAM ELIGIBILITY SPECIALIST Gender Identity Male 12/06/2021 8:05 AM PROGRAM ELIGIBILITY SPECIALIST Sexual Orientation Straight 12/06/2021 8: 05 AM PROGRAM ELIGIBILITY SPECIALIST Last Filed Vital Signs Vital Sign Reading Time Taken Comments Blood Pressure 150/86 12/18/2021 2:33 PM PROGRAM ELIGIBILITY SPECIALIST Pulse 71 12/18/2021 2:33 PM PROGRAM ELIGIBILITY SPECIALIST Temperature 36.2 C (97.1 F) 12/18/2021 2:33 PM PROGRAM ELIGIBILITY SPECIALIST Respiratory Rate 16 05/26/2022 2:18 PM CDT Oxygen Saturation 99% 12/18/2021 2:33 PM PROGRAM ELIGIBILITY SPECIALIST RA Inhaled Oxygen Concentration - - Weight 81.6 kg (180 lb) 01/13/2024 11:35 AM CDT Height 170.2 cm (5' 7 ) 01/13/2024 11:35 AM CDT Body Mass Index 28.19 01/13/2024 11:35 AM CDT Medical Devices Implanted Type Area Seat Cover Maker Device Identifier Shelf Expiration Date Model / Serial / Lot Plate Med Mdfc 2 Hl Strg 1.5mm Scr Bn Ti Implanted:Qty: 4 on 11/11/2017 by Hayden Barone MD at [facility] [employer] [id number] / / Demetrise Screw Cartridge 4.0 Implanted:Qty: 2 on 11/11/2017 by Hayden Barone MD at [facility] [id number] / / Description:8 screws used Graft Tissue Drgn + Bvn Clgn Mtrx 1x1in Implanted:Qty: 1 on 11/11/2017 by Hayden Barone MD at [facility] Left: Cranial [employer] 01/24/2020 [id number] / / [id number] Dev Clsr Aaron Duraseal Dura Pg Slnt Sys 5 Implanted:Qty: 1 on 11/11/2017 by Hayden Barone MD at [facility] Left: Cranial Integra [employer] Alex 10/25/2019 [id number] / / Procedures * URINALYSIS MICROSCOPIC ONLY [...] Agency Comment Lab Testing performed at: [facility] [address] [phone] Hayden Finley MD LAB - URINALYSIS ORD ERABLES Performing Organization Address [facility] de Phone Number [facility] INSURANCE BILL [address] [place] [address] * URINALYSIS REFLEX MICROSCOPIC REFLEX CULTURE (04/11/2022 3:33 PM CDT) Only the most recent of4 resultswithin the time period is included. Specific [place] UA 1.016 1.005 - 1.030 [facility] INSURANCE [...] Agency Comment Lab Testing performed at: [facility] [address] [phone] Hayden Finley MD LAB - URINALYSIS ORD ERABLES Performing Organization Address City/[facility]/ZIP Co de Phone Number [facility] INSURANCE BILL [address] [place] [address] * LAMOTRIGINE LEVEL (04/11/2022 3:33 PM CDT) Only the most recent of4 resultswithin the time period is included. Pathologist [facility] Lamotrigine 7.9 2.0 - 20.0 ug/mL [facility] INSURANCE BILL Comment:Detection Limit = 1. 0 Blood BLOOD SPECIMEN / Unknown 04/11/2022 3:33 PM CDT 04/11/2022 Narrative Resulting Agency Comment Lab Testing performed at: [facility] [address] [phone] Hayden Finley MD LAB - THERAPEUTIC DR GOMEZ MONITORING ORDERABLES [facility] INSURANCE BILL [address] [place] [address] * (ABNORMAL) COMPREHENSIVE METABOLIC PANEL (04/11/2022 3:33 PM CDT) Only the most recent of10 resultswithin the time period is included. Pathologist [facility] Glucose 84 65 - 99 mg/dL [facility] [...] Resulting Agency Comment [facility] [address] [phone] Hayden Finley MD LAB - CHEMISTRY ANNA HELM [facility] INSURANCE BILL [address] [place] [address] * VITAMIN B12 FOLATE PANEL (04/11/2022 3:33 PM CDT) Vitamin B12 290 232 - 1,245 pg/mL [facility] INSURANCE BILL Folate 5.4 >3.0 ng/mL [facility] INSURANCE BILL Comment: A serum folate concentration of less than 3.1 ng/mL is considered to represent clinical deficiency. Blood BLOOD SPECIMEN / Unknown 04/11/2022 3:33 PM CDT 04/11/2022 Narrative Resulting Agency Comment [facility]: [facility] [address] [phone] Hayden Finley MD LAB - CHEMISTRY ANNA HELM [facility] INSURANCE BILL [address] [place] [address] * (ABNORMAL) AMMONIA (04/11/2022 3:33 PM CDT) Ammonia 35(L) 40 - 200 ug/dL [facility] INSURANCE BILL Blood BLOOD SPECIMEN / Unknown 04/11/2022 3:33 PM CDT 04/11/2022 Narrative Resulting Agency Comment Lab Testing performed at: [facility] [address] [phone] Hayden Finley MD LAB - CHEMISTRY ANNA HELM [facility] INSURANCE BILL [address] [place] [address] * TSH REFLEX FREE T4 (04/11/2022 3:32 PM CDT) TSH 2.700 0.450 - 4.500 uIU/mL [facility] INSURANCE BILL Blood BLOOD SPECIMEN / Unknown 04/11/2022 3:32 PM CDT 04/11/2022 Narrative Resulting Agency Comment Lab Testing performed at: [facility] [address] [phone] Hayden Finley MD LAB - CHEMISTRY ORDE RABAXEL Performing Organization Address [facility] Co de Phone Number [facility] [address] [place] [address] * (ABNORMAL) LEVETIRACETAM LEVEL (04/11/2022 3:32 PM CDT) Only the most recent of2 resultswithin the time period is included. Levetiracetam <1.0(L) 10.0 - 40.0 ug/mL [facility] INS[facility] B[facility] Blood BLOOD SPECIMEN / Unknown 04/11/2022 3:32 PM CDT 04/11/2022 Narrative [facility] INSURANCE BILL - 04/15/2022 3:08 PM CDT Test(s) [id number], S was developed and its performance characteristics determined by [employer]. It has not been cleared or approved by the Food and Drug Administration. Resulting Agency Comment Lab Testing performed at: [address] [phone] Hayden Finley MD LAB - THERAPEUTIC DR GOMEZ MONITORING ORDERABLES Performing Organization Address [facility]/ZIP Co de Phone Number [facility] [address] [place] [address] * MRI BRAIN WWO CONTRAST (11/27/2021 6:17 PM PROGRAM ELIGIBILITY SPECIALIST) Only the most recent of10 resultswithin the time period is included. Anatomical Region Laterality Modality Head Magnetic Resonan ce 11/28/2021 11:0 3 AM PROGRAM ELIGIBILITY SPECIALIST Narrative 11/28/2021 11:41 AM PROGRAM ELIGIBILITY SPECIALIST Examination: MRI brain, with and without contrast. [...] Pj Zamarripa on 11/28/2021 at 11:41 AM Procedure Note [...] CREATININE - POCT INTERFACED (11/27/2021 5:34 PM PROGRAM ELIGIBILITY SPECIALIST) Only the most recent of4 resultswithin the time period is included. Creatinine POCT 1.41(H) 0.70 - 1.20 mg/dL 11/27/2021 6:12 PM PROGRAM ELIGIBILITY SPECIALIST [facility] Blood BLOOD SPECIMEN / Unknown 11/27/2021 5:34 PM PROGRAM ELIGIBILITY SPECIALIST 11/27/2021 6:12 PM PROGRAM ELIGIBILITY SPECIALIST William Peña MD LAB - POINT OF CARE ORDERABLES Performing Organization Address [facility] de Phone Number [facility] [address] [place] [address] * (ABNORMAL) CREATININE BLOOD - POINT OF CARE (IP) (10/17/2019 3:19 PM PROGRAM ELIGIBILITY SPECIALIST) Only the most recent of4 resultswithin the time period is included. Creatinine POCT 1.77(A) 0.7 - 1.2 mg/dL [facility] POCT TEST[facility] QC Verified Yes Yes [facility] POC T TESTING Blood BLOOD SPECIMEN / Unknown 10/17/2019 3:19 PM PROGRAM ELIGIBILITY SPECIALIST Chinedu Molina MD LAB - POINT OF CARE ORDERABLES Performing Organization Address [facility] de Phone Number [facility] POCT TESTING [address] [place], [place] [phone] [place] [address] * ENDOTRACHEAL TUBE NOTE (12/07/2018 6:25 AM PROGRAM ELIGIBILITY SPECIALIST) Narrative Bisi Quevedo, DO - 12/07/2018 6:25 AM PROGRAM ELIGIBILITY SPECIALIST Lou Emerson, VALUATION MANAGER-TICKET SPECULATOR 11/26/2018 7:40 AM Endotracheal Tube Placement: Patient Location: OR. Intubation Event Date/Time: 11/26/2018 7:31 AM Procedure: intubation ([id number]). Procedure Section: Sedation: under general anesthesia. Indications [...] RDERABLES * APHERESIS/TRANSFUSION ORDER (11/29/2018 8:54 PM PROGRAM ELIGIBILITY SPECIALIST) Only the most recent of2 resultswithin the time period is included. Narrative 11/29/2018 8:54 PM PROGRAM ELIGIBILITY SPECIALIST Ordered by an unspecified provider. Scanned Document NURSING - VITAL SIGN S AND ASSESSMENT * GROSS + MICRO EXAM (STL) (11/26/2018 7:51 AM PROGRAM ELIGIBILITY SPECIALIST) Only the most recent of2 resultswithin the time period is included. Case Report Surgical Pathology Report Case: [id number] Authorizing Provider: Hayden Barone MD Collected: 11/26/2018 07:51 AM Ordering Location: [facility] INTRAOP Received: 11/26/2018 08:41 AM Pathologist: Alexi Tran MD Specimen: Mass, right parietal skull mass 12/08/2018 9:35 AM PROGRAM ELIGIBILITY SPECIALIST [facility] Final Diagnosis 1. 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 Device Repair Technician sections are submitted as follows: A1 - tips submitted en face A2 and A3 - Mass closest to black-inked deep margin and blue-inked peripheral borders A4 and A5 - Contiguous sections including mass closest to black-inked deep margin and blue-inked peripheral borders A6 and A7 - Contiguous sections including mass close to black-inked deep margin and blue-inked peripheral borders. CH/eh 12/08/2018 9:35 AM [facility] Microscopic Description The right parietal [...] but rather a large traumatized pilomatricoma. A care consultant concurs (see separate report from Cutaneous Pathology). The lesion is excised. AB/scs 12/08/2018 9:35 AM [facility] Disclaimer All histochemical and/or immunohistochemical results are interpreted with controls that demonstrate appropriate staining reactions before reporting results. Note on use of immunocytochemistry reagents: This test was developed and its performance characteristic determined by [facility], Department of Laboratory Medicine. It has not been cleared or approved by the U.S. Food and Drug Administration (FDA). The FDA has determined that such clearance or approval is not necessary. The test is used for clinical purpose. It should not be regarded as investigational or for research. This laboratory is certified to perform high complexity testing. 12/08/2018 9:35 AM [facility] Embedded Images 12/08/2018 9:35 AM [facility] Pathology/Cytolo gy MASS / Unknown 11/26/2018 7:51 AM PROGRAM ELIGIBILITY SPECIALIST 11/26/2018 8:41 AM PROGRAM ELIGIBILITY SPECIALIST Hayden Barone MD LAB - PATHOLOGY /CYTOLOGY ORDERABLES [facility] [address] [place] [address] * EKG 12-LEAD (11/22/2018 4:09 PM PROGRAM ELIGIBILITY SPECIALIST) Only the most recent of2 resultswithin the time period is included. Ventricular Rate 70 BPM [facility] Atrial Rate 70 BPM [facility] P-R Interval 158 ms [facility] QRS Duration ms 82 ms [facility] Q-T Interval ms 388 ms [facility] QTC Calculation (Bezet) 419 ms [facility] Calculated P Nolan 56 degrees [facility] Calculated R Nolan 17 degrees [facility] Calculated T Nolan 19 degrees [facility] Interpretation EKG Normal sinus rhythm Normal ECG When compared with ECG of 09-NOV-2017 09:05, No significant change was found Confirmed by DASIA WOMACK MD ([id number]) on 11/23/2018 9:19:31 AM [facility] MUSE 11/22/2018 4:09 PM PROGRAM ELIGIBILITY SPECIALIST 11/23/2018 9:19 AM PROGRAM ELIGIBILITY SPECIALIST Hayden Barone MD ECG ORDERABLES Performing Organization Address City/[facility] Co de Phone Number [facility] MUSE * CULTURE MSSA/MRSA (11/22/2018 3:33 PM PROGRAM ELIGIBILITY SPECIALIST) Only the most recent of2 resultswithin the time period is included. Pathologist [facility] Culture Negative for Staphylococcus aureus (MRSA/MSSA) SARAHI 11/24/2018 10:45 AM [facility] MICROBIOLOGY Microbiology SPECIMEN FROM NASAL FOSSAE / Unknown Collection / Unknown 11/22/2018 3:33 PM PROGRAM ELIGIBILITY SPECIALIST 11/22/2018 4:01 PM PROGRAM ELIGIBILITY SPECIALIST Hayden Barone MD LAB - MICROBIOL OGY ORDERABLES [facility] MICROBIOLOGY [address] [place], [place] [address] [phone] * TYPE + SCREEN PANEL (11/22/2018 3:33 PM PROGRAM ELIGIBILITY SPECIALIST) Only the most recent of2 resultswithin the time period is included. ABO B 11/22/2018 6:25 PM PROGRAM ELIGIBILITY SPECIALIST [facility] BLOOD BANK Rh Type Positive 11/22/2018 6:25 PM PROGRAM ELIGIBILITY SPECIALIST [facility] BLOOD BANK Comment:History checked. Antibody Screen Negative 11/22/2018 6:25 PM PROGRAM ELIGIBILITY SPECIALIST [facility] BLOOD BANK Blood Bank BLOOD SPECIMEN / Unknown Venipuncture / Unknown 11/22/2018 3:33 PM PROGRAM ELIGIBILITY SPECIALIST 11/22/2018 4:01 PM PROGRAM ELIGIBILITY SPECIALIST Hayden Barone MD LAB - BLOOD BAN K ORDERABLES Performing Organization Address [facility] Co de Phone Number [facility] BLOOD BANK [address] * PT PTT PANEL (11/22/2018 3:33 PM PROGRAM ELIGIBILITY SPECIALIST) Only the most recent of2 resultswithin the time period is included. PT 9.9 9.5 - 11.6 sec 11/22/2018 4:15 PM PROGRAM ELIGIBILITY SPECIALIST [facility] INR 0.9 0.9 - 1.1 11/22/2018 4:15 PM PROGRAM ELIGIBILITY SPECIALIST [facility] PTT 23.8 21.0 - 32.0 sec 11/22/2018 4:15 PM PROGRAM ELIGIBILITY SPECIALIST [facility] Blood BLOOD SPECIMEN / Unknown Venipuncture / Unknown 11/22/2018 3:33 PM PROGRAM ELIGIBILITY SPECIALIST 11/22/2018 4:01 PM PROGRAM ELIGIBILITY SPECIALIST Narrative [facility] - 11/22/2018 4:15 PM PROGRAM ELIGIBILITY SPECIALIST Conventional Warfarin Anticoagulant Therapy: INR Reference Range: 2.0-3.0 Intensive Warfarin Anticoagulant Therapy: INR Reference Range: 2.5-3.5 Heparin Therapeutic Range for PTT: 47.7 - 68.6 seconds. Hayden Barone MD LAB - COAGULATI ON ORDERABLES Performing Organization Address [facility] de Phone Number [facility] [id number] [place] [address] * (ABNORMAL) CBC W AUTO DIFFERENTIAL (11/22/2018 3:33 PM PROGRAM ELIGIBILITY SPECIALIST) Only the most recent of6 resultswithin the time period is included. WBC 6.2 4.4 - 10.7 x10E9/L 11/22/2018 4:05 PM PROGRAM ELIGIBILITY SPECIALIST [facility] WBC Corrected x10E9/L 11/22/2018 4:05 PM PROGRAM ELIGIBILITY SPECIALIST [facility] RBC 5.27 3.80 - 5.40 x10E12/L 11/22/2018 4:05 PM PROGRAM ELIGIBILITY SPECIALIST [facility] Hemoglobin 15.5 12.0 - 17.6 gm/dL 11/22/2018 4:05 PM [facility] Hematocrit 46.8 35.2 - 51.7 % 11/22/2018 4:05 PM [facility] MCV 88.8 80.7 - 98.3 fl 11/22/2018 4:05 PM [facility] MCH 29.4 26.7 - 34.0 pg 11/22/2018 4:05 PM [facility] MCHC 33.1 30.8 - 35.9 gm/dL 11/22/2018 4:05 PM [facility] Platelet Count 165 153 - 416 x10E9/L 11/22/2018 4:05 PM [facility] RDW-CV 13.4 12.1 - 14.9 % 11/22/2018 4:05 PM [facility] MPV 10.3 9.4 - 12.9 fl 11/22/2018 4:05 PM [facility] Neutrophils % 63.2 44.0 - 73.0 % 11/22/2018 4:05 PM [facility] Lymphocytes % 22.0 20.0 - 43.0 % 11/22/2018 4:05 PM [facility] Monocytes % 10.3 5.0 - 13.0 % 11/22/2018 4:05 PM [facility] Eosinophils % 2.4 0.0 - 6.0 % 11/22/2018 4:05 PM [facility] Basophils % 1.0 0.0 - 2.0 % 11/22/2018 4:05 PM [facility] Immature Granulocytes 1.1(H) 0 - 1 % 11/22/2018 4:05 PM [facility] Neutrophil Absolute 3.91 2.01 - 7.14 x10E9/L 11/22/2018 4:05 PM [facility] Lymphocytes Absolute 1.36 1.07 - 3.94 x10E9/L 11/22/2018 4:05 PM [facility] Monocytes Absolute 0.64 0.26 - 1.07 x10E9/L 11/22/2018 4:05 PM [facility] Eosinophils Absolute 0.15 0 - 0.47 x10E9/L 11/22/2018 4:05 PM [facility] Basophils Absolute 0.06 0 - 0.08 x10E9/L 11/22/2018 4:05 PM [facility] Immature Granulocytes Absolute 0.07(H) 0.00 - 0.06 x10E9/L 11/22/2018 4:05 PM [facility] nRBC Auto 0 /100 WBC 11/22/2018 4:05 PM [facility] Blood BLOOD SPECIMEN / Unknown Venipuncture / Unknown 11/22/2018 3:33 PM PROGRAM ELIGIBILITY SPECIALIST 11/22/2018 4:01 PM PROGRAM ELIGIBILITY SPECIALIST Hayden Barone MD LAB - HEMATOLOG Y ORDERABLES [facility] [address] [place] [address] * (ABNORMAL) BASIC METABOLIC PANEL (CALCIUM TOTAL) (11/22/2018 3:33 PM [facility]) Only the most recent of6 resultswithin the time period is included. Glucose 82 74 - 106 mg/dL 11/22/2018 4:18 PM [facility] Sodium 138 136 - 145 mmol/L 11/22/2018 4:18 PM [facility] Potassium 4.1 3.5 - 5.1 mmol/L 11/22/2018 4:18 PM [facility] Chloride 103 98 - 107 mmol/L 11/22/2018 4:18 PM [facility] CO2 34(H) 22 - 31 mmol/L 11/22/2018 4:18 PM [facility] Calcium 9.3 8.5 - 10.1 mg/dL 11/22/2018 4:18 PM [facility] Anion Gap 1(L) 8 - 16 mmol/L 11/22/2018 4:18 PM [facility] BUN 14 7 - 21 mg/dL 11/22/2018 4:18 PM [facility] Creatinine 1.50(H) 0.50 - 1.30 mg/dL 11/22/2018 4:18 PM [facility] eGFR by MDRD 48(L) >60 mL/min/1.7 3m2 11/22/2018 4:18 PM [facility] eGFR by MDRD 58(L) >60 mL/min/1.7 3m2 11/22/2018 4:18 PM [facility] Blood BLOOD SPECIMEN / Unknown Venipuncture / Unknown 11/22/2018 3:33 PM PROGRAM ELIGIBILITY SPECIALIST 11/22/2018 4:01 PM PROGRAM ELIGIBILITY SPECIALIST Hayden Barone MD LAB - CHEMISTRY ORDERABLES [facility] [address] [place] [address] * (ABNORMAL) CBC W AUTO DIFFERENTIAL (CANCER [...] - 12.9 fl 04/27/2018 11:31 AM CDT [facility] Blood BLOOD SPECIMEN / Unknown 04/27/2018 11:15 AM CDT 04/27/2018 11:15 AM CDT Chinedu Molina MD LAB - HEMATOLOGY ORD ERABLES [facility] [address] [address] * (ABNORMAL) RENAL FUNCTION PANEL (03/02/2018 1:56 [...] CDT 03/02/2018 Narrative Resulting Agency Comment [facility] [address] [phone] Chinedu Molina MD LAB - CHEMISTRY ANNA HELM [facility] Organization Address City/State/ZIP Co de Phone Number [facility] ACCOUNT BILL [address] [place] [address] * US RETROPERITONEAL COMPLETE (02/22/2018 1:00 PM [...] WWO PELVIS W CONT (11/26/2017 12:50 PM PROGRAM ELIGIBILITY SPECIALIST) Anatomical Region Laterality Modality Abdomen, Pelvis Computed Tomogra phy 11/26/2017 3:19 PM PROGRAM ELIGIBILITY SPECIALIST Impressions 11/27/2017 1:03 PM PROGRAM ELIGIBILITY SPECIALIST SMOOTHLY BORDERED LOW-ATTENUATION NONENHANCING LESION NEAR THE DOME OF LIVER, MOST LIKELY CONSISTENT WITH CYST. NO EXPLANATION FOR ELEVATED LIVER FUNCTION TESTS. TINY PERIAORTIC LYMPH NODES. Edited by Kristi Waite on 11/26/2017 3:43 PM Narrative 11/27/2017 1:[address] ELIGIBILITY [address] ABDOMEN AND PELVIS WITHOUT AND WITH [...] TESTS. TINY PERIAORTIC LYMPH NODES. Edited by Krsiti Waite on 11/26/2017 3:43 PM [address]u Molina MD CT ORDERABLES * (ABNORMAL) HEPATIC FUNCTION PANEL (11/24/2017 1:54 PM PROGRAM ELIGIBILITY SPECIALIST) Protein Total 6.2(L) 6.4 - 8.2 gm/dL [...] BLOOD SPECIMEN / Unknown 11/24/2017 1:54 PM PROGRAM ELIGIBILITY SPECIALIST 11/24/2017 Narrative Resulting Agency Comment [facility] [address] [place] [phone] Greta Aldana VALUATION MANAGER-SUPERINTENDENT SYSTEM OPERATION LAB - CHEMISTRY O RDERABLES [facility] ACCOUNT BILL [address] [place] [address] * (ABNORMAL) CBC W/O DIFFERENTIAL (11/20/2017 4:40 AM PROGRAM ELIGIBILITY SPECIALIST) WBC 23.1(H) 4.4 - 10.7 x10E9/L 11/20/2017 7:27 AM [facility] RBC 5.78(H) 3.80 - 5.40 x10E12/L 11/20/2017 7:27 AM [facility] Hemoglobin 16.9 12.0 - 17.6 gm/dL 11/20/2017 7:27 AM [facility] Hematocrit 48.4 35.2 - 51.7 % 11/20/2017 7:27 AM [facility] MCV 83.7 80.7 - 98.3 fl 11/20/2017 7:27 AM [facility] MCH 29.2 26.7 - 34.0 pg 11/20/2017 7:27 AM [facility] MCHC 34.9 30.8 - 35.9 gm/dL 11/20/2017 7:27 AM [facility] Platelet Count 174 153 - 416 x10E9/L 11/20/2017 7:27 AM [facility] RDW-CV 13.6 12.1 - 14.9 % 11/20/2017 7:27 AM [facility] MPV 12.1 9.4 - 12.9 fl 11/20/2017 7:27 AM [facility] Blood BLOOD SPECIMEN / Unknown Venipuncture / Unknown 11/20/2017 4:40 AM PROGRAM ELIGIBILITY SPECIALIST 11/20/2017 7:17 AM PROGRAM ELIGIBILITY SPECIALIST Chelly Briseno MD LAB - HEMATOLOGY ORD ERABLES [facility] [address] [place] [address] * CARDIAC RHYTHM STRIP ORDER (11/16/2017 7:33 PM PROGRAM ELIGIBILITY SPECIALIST) Only the most recent of2 resultswithin the time period is included. Narrative 11/16/2017 7:33 PM PROGRAM ELIGIBILITY SPECIALIST Ordered by an unspecified provider. Scanned Document CARDIAC SERVICES ORD ERABLES * CT HEAD NON CONTRAST (11/12/2017 5:41 AM PROGRAM ELIGIBILITY SPECIALIST) Only the most recent of2 resultswithin the time period is included. Anatomical Region Laterality Modality Head Computed Tomogra phy 11/12/2017 7:28 AM PROGRAM ELIGIBILITY SPECIALIST Impressions 11/12/2017 7:32 AM PROGRAM ELIGIBILITY SPECIALIST No significant change in the edema, hemorrhage and postoperative site with mass effect and midline shift. Hematoma and subarachnoid hemorrhage is unchanged Narrative 11/12/2017 7:32 AM PROGRAM ELIGIBILITY SPECIALIST CT Head Noncontrast Indication: Status post brain [...] ORDERABLES * CULTURE VRE (11/11/2017 9:07 PM PROGRAM ELIGIBILITY SPECIALIST) Culture Negative for vancomycin-resi stant Enterococci (VRE) SARAHI 11/13/2017 7:13 AM PROGRAM ELIGIBILITY SPECIALIST [facility] Stool RECTAL SWAB / Unknown Collection / Unknown 11/11/2017 9:07 PM PROGRAM ELIGIBILITY SPECIALIST 11/11/2017 9:28 PM PROGRAM ELIGIBILITY SPECIALIST Hayden Barone MD LAB - MICROBIOL OGY ORDERABLES Performing Organization Address City/[facility]/ZIP Co de Phone Number [facility] [facility] [address] [place], [place] [id number] [place] [address] * LAB MISC TEST (NOT BLOOD) (11/11/2017 12:50 PM PROGRAM ELIGIBILITY SPECIALIST) Only the most recent of2 resultswithin the time period is included. Test Name IDH1 and IDH2 mutation analysis, EXON 4, formalin-fix ed, paraffin-emb edded tissue 11/25/2017 8:40 AM PROGRAM ELIGIBILITY SPECIALIST [facility] Test Result See Scanned Report 11/25/2017 8:40 AM PROGRAM ELIGIBILITY SPECIALIST [facility] NON INTERF Comment Ref Lab 11/25/2017 8:40 AM PROGRAM ELIGIBILITY SPECIALIST [facility] NON INTERF Other TUMOR TISSUE SPECIMEN / Unknown 11/11/2017 12:50 PM PROGRAM ELIGIBILITY SPECIALIST 11/14/2017 1:23 PM PROGRAM ELIGIBILITY SPECIALIST Alexi Tran MD LAB - BODY FLUID O RDERABLES Performing Organization Address City/[facility]/ZIP Co de Phone Number [facility] NON INTERF [address] [place] [address], [facility] [address] [place] [id number] * BLOOD TYPE VERIFICATION (11/11/2017 10:10 AM PROGRAM ELIGIBILITY SPECIALIST) ABO B 11/11/2017 10:38 AM PROGRAM ELIGIBILITY SPECIALIST [facility] BLOOD BANK Rh Type Positive 11/11/2017 10:38 AM PROGRAM ELIGIBILITY SPECIALIST [facility] BLOOD BANK Blood Bank BLOOD SPECIMEN / Unknown 11/11/2017 10:10 AM PROGRAM ELIGIBILITY SPECIALIST 11/11/2017 10:10 AM PROGRAM ELIGIBILITY SPECIALIST Hayden Barone MD LAB - BLOOD BAN K ORDERABLES [facility] BLOOD BANK [id number] * MRI BRAIN FUNCTIONAL (10/08/2017 9:16 AM PROGRAM ELIGIBILITY SPECIALIST) Anatomical Region Laterality Modality Head Magnetic Resonan ce 10/08/2017 1:56 PM PROGRAM ELIGIBILITY SPECIALIST Addenda Addendum by Cihnedu Tello MD on 10/30/2017 2:49 PM PROGRAM ELIGIBILITY SPECIALIST Areas of activation are seen in the [...] 10/30/2017 12:20 PM Impressions 10/08/2017 4:37 PM PROGRAM ELIGIBILITY SPECIALIST Some activation in the medial left temporal [...] 10/08/2017 2:18 PM Narrative 10/08/2017 4:37 PM PROGRAM ELIGIBILITY SPECIALIST MRI BRAIN FUNCTIONAL INDICATION: History of brain [...] - 20 mm/hr 01/14/2017 6:18 PM CDT [facility] LAB[facility] Blood BLOOD SPECIMEN / Unknown Lab Venipuncture / Unknown 01/14/2017 5:44 PM CDT 01/14/2017 5:57 PM CDT Pradeep Kumar MD LAB - HEMATOLOGY ORD ERABLES [facility] LAB[facility] [address] [place] [address] * BRAIN BIOPSY (10/27/2001) Provider Unknown GENERIC SURGICAL HIS TORY Care Teams Kardex Clerk Relationship Specialty Start Date End Date Leonides Mcneil MD [address] [address] PCP - General Family Medicine 01/14/17 [place]ña [place] [address] [facility] [address] [place] [address] Bulldozer Engineer/Oncologist Hematology and Oncology 06/07/21 Greta Aldana, VALUATION MANAGER-SUPERINTENDENT SYSTEM OPERATION [id number] [address] Advance Practice Nurse Hematology and Oncology 06/07/21
[2024-12-05] MEDS: SODIUM CHLORIDE 0.9% IV 1,000 ML 999 ML IV CONT (19:19)
[2024-12-05] MEDS: IPRATROPIUM 0.5 MG/ALBUTEROL SULFATE 2.5 MG AMPUL.NEB 3 ML INHALATION (22:12)
--- NOTE | 2024-12-05 22:15 | PCRCNOTE ---
Pt TX was not showing on ED tracker so TX was delayed.
[2024-12-05 23:41] LABS: D Dimer 2.08 ug/mL (<0.48)
[2024-12-06 01:30] VITALS: BP 137/80; PULSE 69; RESP 20; O2SAT 96
[2024-12-06 04:53] VITALS: BP 139/83; PULSE 73; RESP 17; O2SAT 97
[2024-12-06 05:28] VITALS: BP 139/83; PULSE 73; RESP 17; O2SAT 97
== END 2024-12-06 05:30 | disposition home or self-care (01) ==
PROVIDERS: Physician Assistant; Registered Nurse; Emergency Provider Student in an Organized Health Care Education/Training Program; PCP Family Medicine Adolescent Medicine
DX: B34.9 Viral infection, unspecified (principal); N28.89 Other specified disorders of kidney and ureter; Z20.822 Contact with and (suspected) exposure to COVID-19; Z85.841 Personal history of malignant neoplasm of brain; M47.812 Spondylosis without myelopathy or radiculopathy, cervical region; Z79.899 Other long term (current) drug therapy
CPT/HCPCS: 36415; 70450; 71046; 71260; 71275; 72125; 80053; 84484; 85025; 85380; 85610; 85730; 87637; 93005; 94640; 96360; 99284; A9270; J7030; Q9967

== ENCOUNTER 2024-12-25 14:16 | Emergency (ER) | payer OTHER, SELFPAY ==
[2024-12-25 14:22] VITALS: BP 151/90; PULSE 68; RESP 16; TEMP 36.2; O2SAT 94
[2024-12-25 14:32] VITALS: PULSE 67; RESP 15; O2SAT 94
--- NOTE | 2024-12-25 14:38 | ED.FALL ---
HPI - Fall General Chief Complaint: Fall Stated Complaint: fall x2 Time Seen by Provider: 12/25/24 14:34 Source: patient Mode of arrival: ambulatory Limitations: no limitations History of Present Illness HPI Narrative: 64 years old white male came to the emergency room with his because of having a fall twice a day at 9:00 a.m. and and 1:30 p.m.. Patient noticed that patient have right facial drooping and more weakness of the right upper and right lower extremity which causing fall twice today. 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 History of craniotomy 2017, history of craniotomy 2001, history of hyper, not related anticoagulant medication, does not smoke or drink or use drugs Last MRI of the brain was 2 weeks ago at [facility] Last time patient was seen at his baseline yesterday and 9:00 p.m.. Patient is telling me that patient baseline is aphasia, right hemiplegia, some cognitive disorder. Patient's denies any injury because of the 2 falls today. Related Data Home Medications ?Medication ?Instructions ?Recorded ?Confirmed ?Last Taken ?Type ondansetron HCl 8 mg tablet 8 mg PO Q8H PRN nausea and vomiting 02/19/23 12/28/23 Unknown History prochlorperazine maleate 10 mg 10 mg PO Q6H PRN nausea and 02/19/23 12/28/23 Unknown History tablet vomiting temozolomide 100 mg capsule 300 mg PO DAILY 02/24/23 12/28/23 Unknown History lamotrigine 150 mg tablet 200 mg PO BID 12/28/23 12/25/24 12/25/24 History Allergies Allergy/AdvReac Type Severity Reaction Status Date / Time sulfamethoxazole Allergy Unknown Unknown Verified 12/25/24 15:26 trimethoprim Allergy Unknown Unknown Verified 12/25/24 15:26 amlodipine AdvReac Intermediate Other Verified 12/25/24 15:26 Review of Systems Review of Systems: ROS unobtainable: Yes unobtainable due to medical condition PMFSH Past Medical History Medical History Malignant neoplasm of brain, unspecified (2001) Astrocytoma Surgical History Surgical History History of craniotomy (2017) Removal of glioma History of craniotomy (2002) Excision of astrocytoma H/O left inguinal hernia repair (2013) Family History Family History Father Hypertension Malignant neoplasm of prostate Diabetes mellitus Other Cerebrovascular accident Family history of cardiovascular disease Social History Social History Smoking status: Never smoker Second hand tobacco smoke exposure: No Alcohol intake: never Substance use: never Substance use type: does not use Lack of Transportation: No Lack of Food: Never True Current Housing: I Have Housing Concerned About Future Housing: No Difficulty Paying Gas/Electric Bills: No Difficulty Paying for Meds: No Currently Unemployed: No Education: Trade/Vocational Certificate Difficulty w/ Childcare or Family Care: No Living arrangements: with family Occupation/Education: other Additional occupation/education comments: Disability Gender identity (if verbalized by the patient): Male Spiritual care concerns: No Agree to blood products: Yes Exam Narrative: General appearance: Well-developed, well-nourished Skin: Normal color Head: Normocephalic, nontraumatic Eyes: Clear conjunctiva ENT: Oropharynx normal, ears normal, nose normal Neck: Supple, nontender Chest and respiratory: Airway patent, no respiratory distress, no accessory muscle use Heart: Regular rate/rhythm Abdomen: Soft, nontender, no organomegaly, quiet bowel sounds Vascular: Normal peripheral pulses, normal capillary refill. Musculoskeletal: Normal range of motion, nontender back Neurologic: Alert, follow verbal commands, right facial drooping, weakness of the right upper and right lower extremity Course Consultations Consultation #1: DR FERNANDO, ONCOLOGIST AT [facility] WHO REQUESTED TO TRANSFER PATIENT TO [facility] ED FOR HEAD MRI TO RULE OUT THE POSSIBILITY OF ACUTE CVA Date: 12/25/24 Time: 16:49 Consultation #2: DR HERNANDEZ, ED PHYSICIAN AT [facility] WHO ACCEPTED PATIENT TRANSFER Date: 12/25/24 Time: 17:03 Vital Signs Vital signs: Vital Signs Temperature 36.2 C L 12/25/24 14:22 Pulse Rate 68 12/25/24 14:22 Respiratory Rate 16 12/25/24 14:22 Blood Pressure 151/90 H 12/25/24 14:22 Pulse Oximetry 94 12/25/24 14:22 Oxygen Delivery Room Air 12/25/24 14:22 Temperature 36.2 C L 12/25/24 14:22 Pulse Rate 60 12/25/24 15:46 Respiratory Rate 16 12/25/24 15:46 Blood Pressure 155/97 H 12/25/24 15:46 Pulse Oximetry 96 12/25/24 15:46 Oxygen Delivery Room Air 12/25/24 14:22 MDM - Fall MDM Narrative Medical decision making narrative: Patient came to the ED with acute CVA like symptoms, noticed today causing to fall at home, last time was seen at his baseline yesterday at 9:00 p.m.. History of brain tumor Vital signs are stable Physical examination consistent with right facial drooping, weakness of the right upper and right lower extremity, aphasia. Differential diagnosis include acute CVA, complication of the brain tumor, Blood workup today includes CBC, CMP, troponin showed CREATININE IS 1.5 OTHERWISE NO SIGNIFICANT ABNORMALITIES Chest x-ray showed NO ACUTE ABNORMALITY CT brain without contrast showed NO ACUTE ABNORMALITIES ACUTE CVA IS MY CONCERN. DR. FERNANDO THE ONCOLOGIST ON-CALL AT [facility] ACCEPTED PATIENT TRANSFER TO THE ED FOR FURTHER EVALUATION DR. HERNANDEZ THE ED PHYSICIAN AT [facility] ACCEPTED PATIENT TRANSFER Differential Diagnosis Differential diagnosis: Likely other (As above) Medical Records Attestation: I reviewed the patient's medical records. Lab Data Attestation: I reviewed the patient's lab results. 12/25/24 15:02 12/25/24 15:02 Labs: Lab Results 12/25/24 Range/Units 15:02 WBC 4.8 (4.5-10.0) K/mm3 RBC 4.91 (4.6-6.20) M/mm3 Hgb 14.2 (14.0-18.0) g/dL Hct 41.4 L (42.0-52.0) % MCV 84.3 (80-100) fl MCH 28.9 (26-34) pg MCHC 34.3 (32-36) g/dl RDW 13.5 (11.5-14.5) % Plt Count 132 L (150-375) k/mm3 MPV 9.9 (7.4-10.4) fl Immature Gran % (Auto) 0.8 H (0-0.5) % Neut % (Auto) 66.1 (45.5-73.1) % Lymph % (Auto) 20.7 (18.3-44.2) % Catahoula % (Auto) 10.8 H (2.6-8.5) % Eos % (Auto) 1.2 (0-4.4) % Baso % (Auto) 0.4 (0.2-1.2) % Lymph # (Auto) 1.00 (0.9-3.2) K/mm3 [place]oula # (Auto) 0.5 (0.1-0.6) K/mm3 Eos # (Auto) 0.1 (0-0.3) K/mm3 Baso # (Auto) 0.0 (0.0-0.1) K/mm3 Abs Immat Gran (auto) 0.04 H (0.00-0.031) K/mm3 Absolute Neuts (auto) 3.2 (1.3-6.7) K/mm3 Absolute Nucleated RBC 0.000 (0.0-0.012) K/mm3 Nucleated RBC % 0.0 (0.0-0.2) % % Immature Plt Fraction 4.3 (0.9-11.2) % PT 13.3 (11.1-14.7) Seconds INR 1.0 APTT 26.6 (22.3-36.8) Seconds Sodium 137 (137-145) mmol/L Potassium 3.6 (3.4-5.0) mmol/L Chloride 102 (98-107) mmol/L Carbon Dioxide 29 (22-30) mmol/L Anion Gap 6 (4-12) mmol/L BUN 13 D (9-20) mg/dL Creatinine 1.54 H (0.7-1.3) mg/dL Estim Creat Clear Calc 42 ml/min Estimated GFR 46 L (59 - ) Glucose 116 H (65-110) mg/dL Calcium 8.9 (8.4-10.2) mg/dL Total Bilirubin 0.6 (0.2-1.3) mg/dL AST 26 (17-59) U/L ALT 32 (6-50) U/L Alkaline Phosphatase 120 (38-126) U/L Total Protein 6.0 L (6.3-8.2) g/dL Albumin 3.7 (3.5-5.1) g/dL Critical Care Time Critical Care Time Critical Care Time: Yes Total Critical Care Time: 30 Discharge Plan Discharge Clinical Impression: Acute cerebrovascular accident (CVA) Patient Disposition: Acute Care Hospital Condition: Stable Additional Instructions: TRANSFERRE TO [facility] Patient Language: Upper Sorbian Prescriptions: No Action lamotrigine 150 mg tablet 200 mg PO BID ondansetron HCl 8 mg tablet 8 mg PO Q8H PRN (Reason: nausea and vomiting) prochlorperazine maleate 10 mg tablet 10 mg PO Q6H PRN (Reason: nausea and vomiting) temozolomide 100 mg capsule 300 mg PO DAILY Rx Instructions: 5 days out of 28 escitalopram oxalate 20 mg tablet 20 mg PO DAILY Qty: 90 2RF lisinopril 20 mg tablet 20 mg PO DAILY Qty: 90 2RF Follow-up/Referrals: Leonides Mcneil MD [Primary Care Provider] - Quality Stroke Scale Stroke Scale 1: Stroke scale date:: 12/25/24 1a Level of consciousness: alert-0 1b Level of consciousness questions: answers both correctly-0 1c Level of consciousness commands: obeys both correctly-0 2 Best gaze: normal-0 3 Visual: no visual loss-0 4 Facial palsy: partial paralysis-2 5a Motor: left arm: no drift-0 5b Motor: right arm: drift-1 6a Motor: left leg: no drift-0 6b Motor: right leg: drift-1 7 Limb ataxia: present in two limbs-2 8 Sensory: normal-0 9 Best language: mute, global aphasia-3 10 Dysarthria: unitelligible or mute-2 11 Extinction and inattention: no abnormality-0 Level:: 11
[2024-12-25 15:09] LABS: Basophils Percent Auto 0.4 % (0.2-1.2); Eosinophils Absolute Auto 0.1 K/mm3 (0-0.3); Eosinophils Percent Auto 1.2 % (0-4.4); Hematocrit 41.4 % (42.0-52.0); Hemoglobin 14.2 g/dL (14.0-18.0); Immature Granulocyte Absolute 0.04 K/mm3 (0.00-0.031); Immature Granulocyte Percent A 0.8 % (0-0.5); Immature Platelet Fraction Pct 4.3 % (0.9-11.2); Lymphocytes Percent Auto 20.7 % (18.3-44.2); Mean Corpuscular HGB Conc 34.3 g/dl (32-36); Mean Corpuscular Hemoglobin 28.9 pg (26-34); Mean Corpuscular Volume 84.3 fl (80-100); Mean Platelet Volume 9.9 fl (7.4-10.4); Monocytes Absolute Auto 0.5 K/mm3 (0.1-0.6); Monocytes Percent Auto 10.8 % (2.6-8.5); Neutrophils Absolute Auto 3.2 K/mm3 (1.3-6.7); Neutrophils Percent Auto 66.1 % (45.5-73.1); Platelet Count Result 132 k/mm3 (150-375); Red Blood Count 4.91 M/mm3 (4.6-6.20); Red Cell Distribution Width 13.5 % (11.5-14.5); White Blood Count 4.8 K/mm3 (4.5-10.0)
[2024-12-25 15:16] LABS: Alanine Aminotransferase 32 U/L (6-50); Albumin Level 3.7 g/dL (3.5-5.1); Alkaline Phosphatase 120 U/L (38-126); Anion Gap 6 mmol/L (4-12); Aspartate Amino Transferase 26 U/L (17-59); Bilirubin,Total 0.6 mg/dL (0.2-1.3); Blood Urea Nitrogen 13 mg/dL (9-20); Calcium 8.9 mg/dL (8.4-10.2); Carbon Dioxide 29 mmol/L (22-30); Chloride 102 mmol/L (98-107); Estimated CRCL calculation 42 ml/min; Estimated Glomerular Filt Rate 46; Glucose 116 mg/dL (65-110); Potassium 3.6 mmol/L (3.4-5.0); Sodium 137 mmol/L (137-145)
[2024-12-25 15:22] LABS: Partial Thromboplastin Time 26.6 Seconds (22.3-36.8); Prothrombin Time 13.3 Seconds (11.1-14.7)
--- NOTE | 2024-12-25 15:40 | PC.NURSE ---
Pt states pt right side always weak noted increase weakness today. Pt history of aphasia speaks in one word sentences. 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 Pt denies any c/o pain from increase in falls today
[2024-12-25 15:46] VITALS: BP 155/97; PULSE 60; RESP 16; O2SAT 96
[2024-12-25 16:00] VITALS: BP 153/90; PULSE 67; RESP 14; O2SAT 96
[2024-12-25 17:00] VITALS: BP 165/90; PULSE 67; RESP 14; TEMP 36.6; O2SAT 96
--- NOTE | 2024-12-25 17:10 | PC.NURSE ---
1700: Consent to transfer to [facility] signed. Pt & deny any questions or concerns.
[2024-12-25 17:42] VITALS: BP 163/90; PULSE 68; RESP 16; TEMP 36.7; O2SAT 97
== END 2024-12-25 17:42 | disposition short-term general hospital (02) ==
PROVIDERS: Emergency Provider Emergency Medicine; PCP Family Medicine Adolescent Medicine
DX: I63.9 Cerebral infarction, unspecified (principal); R29.711 NIHSS score 11; Z85.841 Personal history of malignant neoplasm of brain; Z92.3 Personal history of irradiation; Z79.899 Other long term (current) drug therapy; R94.31 Abnormal electrocardiogram [ECG] [EKG]
CPT/HCPCS: 36415; 70450; 71045; 80053; 85025; 85055; 85610; 85730; 93005; 99285

== ENCOUNTER 2025-09-12 08:10 | Emergency (ER) | payer OTHER, SELFPAY ==
--- NOTE | 2025-09-12 08:13 | ED.URI ---
HPI - URI/Sore Throat General Chief Complaint: Upper Respiratory Infection Stated Complaint: Sinus Time Seen by Provider: 09/12/25 08:58 Source: patient and RN notes reviewed Mode of arrival: ambulatory Limitations: no limitations History of Present Illness HPI Narrative: 65-year-old male with history of malignant neoplasm with concern for 6 day history of cough, sinus congestion and drainage. Reports he has trouble sleeping at night because of the cough. His reports he is due to have surgery on Thursday and the surgeon wanted him to be evaluated and treated prior to surgery. He is not currently on chemotherapy or immunosuppressed. He has been taking [id number] medications without relief. MD elicited complaint: cough and nasal congestion Related Data Home Medications ?Medication ?Instructions ?Recorded ?Confirmed ?Last Taken ?Type lamotrigine 150 mg tablet 200 mg PO BID 12/28/23 02/02/25 12/25/24 History aspirin 81 mg tablet,delayed 81 mg PO DAILY 02/02/25 02/02/25 Unknown History release (Adult Aspirin Regimen) Allergies Allergy/AdvReac Type Severity Reaction Status Date / Time sulfamethoxazole Allergy Unknown Unknown Verified 09/12/25 08:27 trimethoprim Allergy Unknown Unknown Verified 09/12/25 08:27 amlodipine AdvReac Intermediate Other Verified 09/12/25 08:27 Review of Systems Review of Systems: CONSTITUTIONAL: Denies malaise, chills, sweats, or fever. EYES: Denies visual changes, redness, or discharge. ENT: Reports rhinorrhea, congestion CARDIOVASCULAR: Denies chest pain, palpitations, or edema. RESPIRATORY: Reports cough. Denies dyspnea. GASTROINTESTINAL: Denies abdominal pain, nausea, vomiting, diarrhea SKIN: Denies rash or itching. MUSCULOSKELETAL: Reports myalgia. NEUROLOGIC: Denies headache. All systems reviewed & are unremarkable except as noted in HPI and below PMFSH Past Medical History Medical History Malignant neoplasm of brain, unspecified (2001) Astrocytoma Surgical History Surgical History History of craniotomy (2018) Removal of glioma History of craniotomy (2001) Excision of astrocytoma H/O left inguinal hernia repair (2013) Family History Family History Father Hypertension Malignant neoplasm of prostate Diabetes mellitus Other Cerebrovascular accident Family history of cardiovascular disease Social History Social History Smoking status: Never smoker Second hand tobacco smoke exposure: No Alcohol intake: never Substance use: never Substance use type: does not use Lack of Transportation: No Lack of Food: Never True Current Housing: I Have Housing Concerned About Future Housing: No Difficulty Paying Gas/Electric Bills: No Difficulty Paying for Meds: No Currently Unemployed: No Education: Trade/Vocational Certificate Difficulty w/ Childcare or Family Care: No Living arrangements: with family Occupation/Education: other Additional occupation/education comments: Disability Gender identity (if verbalized by the patient): Male Spiritual care concerns: No Agree to blood products: Yes Comments At time of signature, agree with nursing past medical, surgical, social and family history. There is no relevant family history pertinent to the presenting complaint Exam Narrative: GENERAL: Well-appearing, well-nourished, and in no acute distress. HEAD: Normocephalic EYES: PERRLA, conjunctivae clear ENT: Nares clear, turbinates edematous and erythematous. Mucous membranes moist. TM pearly baker with dull light reflex bilaterally; no tragal tenderness. Oropharynx not erythematous without lesions. Tonsils not enlarged and without exudate, no drooling, no hoarseness, no trismus, uvula midline. NECK: Supple. No lymphadenopathy CHEST: Clear to auscultation, breath sounds equal. No wheezing, rhonchi, rales, or stridor. No respiratory distress, speaks in full sentences. Cough noted HEART: Regular rate and rhythm. No murmur heard. SKIN: Warm, dry, no rash. NEURO: Alert and oriented x3. PSYCH: Normal mood and affect Course Course Emergency Course: Patient is aware of diagnosis, understands and agrees to treatment plan. Anticipatory guidance given. Patient agrees to follow-up as directed and is aware of reasons to seek care at the emergency department. Portions of this record may have been created with voice recognition software Level of Care: Express Care Visit Vital Signs Vital signs: Reviewed. MDM - URI/Sore Throat MDM Narrative Medical decision making narrative: Differential diagnosis considered: Rizo virus, strep pharyngitis, allergic rhinitis, upper respiratory tract infection, sinusitis, rhinosinusitis, nasopharyngitis. viral pharyngitis, otitis media, otitis externa, pneumonia, bronchitis, viral cough syndrome, viral syndrome, and influenza. Exam findings show no acute concerns or changes; patient is non-toxic appearing and is in no distress. Patient is appropriate for outpatient treatment and follow-up. Lab Data Attestation: I reviewed the patient's lab results. Critical Care Time Critical Care Time Critical Care Time: No Discharge Plan Discharge Clinical Impression: Sinobronchitis Patient Disposition: Home Condition: Stable Instructions: Antibiotic Form, Acute Bronchitis (ED) Additional Instructions: Take medication as prescribed Recommend antihistamine such as Benadryl at night time and Zyrtec or Alisson during the day Cough syrup may cause drowsiness; avoid driving or take it at night time. Also, recommend symptomatic treatment includes: rest, fluids, and increase humidity of the air at home. Recommend Acetaminophen as directed on the bottle to reduce fever, pain, headache. Avoid smoking/second-hand smoke. Please schedule a follow-up visit with your personal physician for further evaluation and treatment within 3-5days. Including recheck and discussion of your blood pressure. If your symptoms persist, change or worsen significantly before you can contact your personal physician then please, without delay, go to the emergency department for further evaluation. Patient Language: Jordanian Prescriptions: New promethazine-DM 6.25-15 mg/5 mL syrup 5 ml PO Q4-6H PRN (Reason: cough) Qty: 120 0RF doxycycline monohydrate 100 mg tablet 100 mg PO BID 7 Days Qty: 14 0RF methylprednisolone [Medrol (Ben)] 4 mg tablets,dose pack See Rx Instructions .ROUTE .COMPLEX Qty: 21 0RF Rx Instructions: orally per package directions No Action lamotrigine 150 mg tablet 200 mg PO BID aspirin [Adult Aspirin Regimen] 81 mg tablet,delayed release (DR/EC) 81 mg PO DAILY atorvastatin [Lipitor] 80 mg tablet 80 mg PO DAILY Qty: 30 11RF escitalopram oxalate 20 mg tablet 20 mg PO DAILY Qty: 90 2RF lisinopril 20 mg tablet 20 mg PO DAILY Qty: 90 3RF Follow-up/Referrals: Leonides Mcneil MD [Primary Care Provider, Family Practice]
[2025-09-12 08:29] VITALS: BP 153/101; PULSE 80; RESP 16; TEMP 37.2; O2SAT 96
== END 2025-09-12 09:04 | disposition home or self-care (01) ==
PROVIDERS: Emergency Provider Nurse Practitioner; PCP Family Medicine Adolescent Medicine
DX: J32.9 Chronic sinusitis, unspecified (principal); J40 Bronchitis, not specified as acute or chronic; Z85.841 Personal history of malignant neoplasm of brain
CPT/HCPCS: 99213; G0463